=== PATIENT | female | born 1945 | race Caucasian/White ===

== ENCOUNTER → 2023-01-15 08:58 | Outpatient (CLI) | payer MEDICARE, SELFPAY ==
--- NOTE | 2023-01-15 09:06 | XR_ITS ---
FINAL REPORT CLINICAL HISTORY: Right foot pain COMPARISON: None FINDINGS: RIGHT FOOT 3 views of the right foot were obtained. There is no acute fracture or dislocation. 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 There is moderate hallux valgus deformity. There is moderate narrowing of the 1st metatarsophalangeal joint. No soft tissue abnormality. IMPRESSION: Degenerative change with no acute bony abnormality. Reviewed, Interpreted and Dictated by Moustapha Freeman MD Transcribed by Glory Sullivan Authenticated and [facility]
--- NOTE | 2023-01-15 09:06 | XR_ITS ---
FINAL REPORT CLINICAL HISTORY: Left foot pain COMPARISON: None FINDINGS: LEFT FOOT Three views of the left foot demonstrate no acute fracture or dislocation. 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 There is moderate hallux valgus deformity. There is moderate narrowing of the 1st metatarsophalangeal joint. The soft tissues are unremarkable. IMPRESSION: Degenerative changes with no acute bony abnormality. Reviewed, Interpreted and Dictated by Moustapha Freeman MD Transcribed by Glory Sullivan Authenticated and [facility]
== END ==
PROVIDERS: Visit Provider Podiatrist
DX: M79.671 Pain in right foot (principal); M79.672 Pain in left foot
CPT/HCPCS: 73630

== ENCOUNTER 2024-07-02 12:07 | Emergency (ER) | payer MEDICARE, SELFPAY ==
--- NOTE | 2024-07-02 12:35 | ED_ITS ---
Discharge Plan Disposition Patient Disposition: Home, Self-Care Condition: Good Prescriptions Prescriptions: New benzonatate 100 mg capsule 100 mg PO TIDP PRN (Reason: Cough) Qty: 30 0RF methylprednisolone 4 mg Tablets,Dose Pack 4 mg PO DIRECTED 6 Days Qty: 21 0RF Rx Instructions: Take 1 pack as directed for 6 days cefdinir 300 mg capsule 300 mg PO BID Qty: 20 0RF No Action lisinopril 20 mg tablet 20 mg PO DAILY methylprednisolone 4 mg tablets,dose pack 4 mg PO PER PKG DIR Qty: 21 0RF diclofenac sodium [Voltaren Arthritis Pain] 1 % gel 4 g topical QID PRN (Reason: pain) Qty: 100 2RF Rx Instructions: apply to single knee, ankle, foot; for foot includes sole/toes/top of foot meloxicam 7.5 mg tablet 7.5 mg PO ONCE Qty: 30 2RF Referrals Follow up/Referrals: Provider,Referral, MD [Primary Care Provider] - See instructions Activity Restrictions/Add. Instructions Additional Instructions/Restrictions: Drink plenty of fluids. Take tylenol or ibuprofen for pain or fever. Take the medications as directed. Follow up with your regular doctor. GO TO THE ER FOR ANY WORSENING SYMPTOMS Clinical Impressions Clinical Impression: Sinusitis, Bronchitis Instructions Patient Instructions: Sinusitis, DI for Sinusitis Print Language Print Language: Croatian Discharge ED Provider: Chaz Peterson [facility] General Stated complaint: head congestion Time Seen by Provider: 07/02/24 12:34 Related Data Home Medications ?Medication ?Instructions ?Recorded ?Confirmed lisinopril 20 mg tablet 20 mg PO DAILY 01/15/23 01/15/23 Previous Rx's ?Medication ?Instructions ?Recorded diclofenac sodium 1 % topical gel 4 g topical QID PRN pain #100 grams 01/15/23 (Voltaren Arthritis Pain) meloxicam 7.5 mg tablet 7.5 mg PO ONCE pain #30 tabs 01/15/23 methylprednisolone 4 mg tablets in 4 mg PO PER PKG DIR Pain, swelling 01/15/23 a dose pack #21 tabs benzonatate 100 mg capsule 100 mg PO TIDP PRN Cough #30 caps 07/02/24 cefdinir 300 mg capsule 300 mg PO BID #20 caps 07/02/24 methylprednisolone 4 mg tablets in 4 mg PO DIRECTED 6 days #21 tabs 07/02/24 a dose pack Allergies Allergy/AdvReac Type Severity Reaction Status Date / Time acetaminophen [From Tylox] Allergy Verified 01/15/23 09:51 clindamycin Allergy Verified 01/15/23 09:51 doxycycline Allergy Verified 01/15/23 09:51 erythromycin base Allergy Verified 01/15/23 09:51 metronidazole [From Flagyl] Allergy Verified 01/15/23 09:51 oxycodone [From Tylox] Allergy Verified 01/15/23 09:51 Penicillins Allergy Verified 01/15/23 09:51 Sulfa (Sulfonamide Allergy Verified 01/15/23 09:51 Antibiotics) keflex Allergy Mild Diarrhea Uncoded 01/15/23 10:02 [facility] Disclaimer: The information contained in this section may have been updated after the patient was seen, as this information can be updated by other users. Medical History (Updated 07/02/24 @ 13:13 by Chaz Peterson APRN) Mitral valve prolapse Hiatal hernia Hypertension Diverticulitis Foot pain, bilateral Surgical History (Updated 01/15/23 @ 10:04 by Laly Boyd CMA) No history of previous surgery Family History (Updated 01/15/23 @ 10:04 by Laly Boyd CMA) Other Family history non-contributory Social History (Updated 01/15/23 @ 10:05 by Laly Boyd CMA) Smoking Status: Never smoker alcohol intake: never substance use type: denies use current occupational status: other Travel in the last 8 weeks: None housing: condominium ROS Obtained: Yes All systems reviewed & no additional complaints except as documented Constitutional Constitutional: Reports poor appetite Eyes Eyes: Reports system reviewed and no additional complaints, except as documented ENT Ears, Nose, Mouth, and Throat: Reports as per HPI Cardiovascular Cardiovascular: Reports system reviewed and no additional complaints, except as documented and Denies chest pain Respiratory Respiratory: Denies shortness of breath, Reports chest congestion, Reports cough, Denies stridor and Denies wheezing Gastrointestinal Gastrointestingal: Reports system reviewed and no additional complaints, except as documented; Denies abdominal pain, diarrhea or vomiting Musculoskeletal Musculoskeletal: Reports system reviewed and no additional complaints, except as documented and Denies arthralgias Integumentary/Breasts Skin/Breast: Reports system reviewed and no additional complaints, except as documented and Denies rash Neurologic Neurologic: Denies paresthesias Allergic/Immunologic Allergic/Immunologic: Denies wheezing Physical Exam General General appearance: alert and in no apparent distress Eye Eye exam: Present normal appearance, PERRL and EOMI ENT ENT exam: Present mucous membranes moist and normal external ear exam Expanded ENT Exam External ear exam: Present normal external inspection TM/Canal exam: Bilateral TM: erythema and bulging Nose exam: Absent sinus tenderness Nasal speculum exam: Bilateral: normal Mouth exam: Present normal external inspection; Absent drooling Teeth exam: Present normal inspection Throat exam: Present tonsillar erythema and tonsillomegaly Neck Neck exam: Present normal inspection, full ROM and trachea midline; Absent tenderness, lymphadenopathy or thyromegaly Chest Chest inspection: Present normal inspection and symmetric chest wall rise; Absent tenderness or rash Respiratory Respiratory exam: Present normal lung sounds bilaterally; Absent respiratory distress, wheezes, stridor or accessory muscle use Cardiovascular Cardiovascular exam: Present regular rate, normal rhythm and normal heart sounds Abdominal Exam Abdominal exam: Present soft; Absent distention, tenderness, guarding, rebound or rigidity Extremities Exam Extremities exam: Present normal inspection, full ROM and normal capillary refill; Absent tenderness or calf tenderness Back Exam Back exam: Present normal inspection and full ROM; Absent tenderness Neurological Exam Neurological exam: Present alert and oriented X3 Psychiatric Psychiatric exam: Present normal affect and normal mood Skin Skin exam: Present warm, dry, intact and normal color Lymphatic Lymphatic Findings: no adenopathy Medical Decision Making Medical Records Medical records reviewed: No I reviewed the patient's medical records. Screening: Per USPSTF and CDC recommendations, given the prevalence of disease in our region, it is our hospital?s policy to screen for HIV and viral Hepatitis for all patients aged 18 and over and those with ongoing risk factors. [place] Inquiry Pt receiving controlled substance: No Lab Data Lab results reviewed: Yes I reviewed the patient's lab results.
[2024-07-02 12:47] VITALS: BP 158/80; PULSE 88; RESP 16; TEMP 36.9; O2SAT 98; BMI 31.1
[2024-07-02 12:55] LABS: UTC Strep Screen (Rapid) Negative (Negative)
[2024-07-02 13:28] VITALS: BP 158/80; PULSE 88; RESP 16; TEMP 36.9; O2SAT 98
== END 2024-07-02 13:29 | disposition home or self-care (01) ==
PROVIDERS: Emergency Provider Nurse Practitioner Family
DX: J40 Bronchitis, not specified as acute or chronic (principal); J01.90 Acute sinusitis, unspecified; I10 Essential (primary) hypertension; I34.1 Nonrheumatic mitral (valve) prolapse
CPT/HCPCS: 87880; 99204; 99212; G0463

== ENCOUNTER 2024-09-20 16:19 | Outpatient (CLI) | payer MEDICARE, SELFPAY ==
[2024-09-20 18:32] LABS: Influenza A, PCR Not Detected (NotDetected); Influenza B, PCR Not Detected (NotDetected)
[2024-09-20 19:36] LABS: Coronavirus 19, PCR Detected (NotDetected)
== END 2024-09-20 23:59 | disposition home or self-care (01) ==
LOC: LAB.DROPOF 09-21 11:14
PROVIDERS: PCP Student in an Organized Health Care Education/Training Program; Visit Provider Student in an Organized Health Care Education/Training Program
DX: R50.9 Fever, unspecified (principal)
CPT/HCPCS: 87636

== ENCOUNTER 2024-09-22 17:53 | Emergency (ER) | payer MEDICARE, SELFPAY ==
[2024-09-22 17:54] VITALS: BP 158/95; PULSE 90; RESP 18; TEMP 36.9; O2SAT 98; BMI 31.1
--- NOTE | 2024-09-22 17:56 | HMH.EDGENADL ---
Discharge Plan Disposition Patient Disposition: Home, Self-Care Condition: Fair Prescriptions Prescriptions: New [id number]-[id number]-AH [Bromfed DM] 2-30-10 mg/5 mL syrup 5 ml PO Q4H PRN (Reason: sinus symptoms) Qty: 118 0RF No Action benzonatate 100 mg capsule 100 mg PO TIDP PRN (Reason: Cough) Qty: 30 0RF methylprednisolone 4 mg tablets,dose pack See Rx Instructions PO PER PKG DIR Qty: 21 0RF Rx Instructions: PO PER PKG DIR cephalexin 500 mg tablet 500 mg PO BID Qty: 20 0RF Paxlovid 300 mg (150 mg x 2)-100 mg tablets,dose pack See Rx Instructions PO .COMPLEX Qty: 30 0RF Rx Instructions: take TWO 150 mg tablets of nirmatrelvir with ONE 100 mg tablet of ritonavir twice daily for 5 days PO lisinopril 20 mg tablet 20 mg PO DAILY diclofenac sodium [Voltaren Arthritis Pain] 1 % gel 4 g topical QID PRN (Reason: pain) Qty: 100 2RF Rx Instructions: apply to single knee, ankle, foot; for foot includes sole/toes/top of foot meloxicam 7.5 mg tablet 7.5 mg PO ONCE Qty: 30 2RF Referrals Follow up/Referrals: Provider,Referral, MD [Primary Care Provider] - See instructions Activity Restrictions/Add. Instructions Additional Instructions/Restrictions: Continue treating symptomatically with Tylenol Motrin every 4 hours as needed. I have sent Bromfed into your pharmacy. Follow-up with your PCP for any new persisting or worsening signs or symptoms or return to the ER as needed Clinical Impressions Clinical Impression: COVID-19 Print Language Print Language: Persian Discharge ED Provider: Jennifer Farias General Adult HPI General Chief complaint: Upper Respiratory Infection Stated complaint: Poss for Covid Time Seen by Provider: 09/22/24 17:56 History of Present Illness HPI narrative: Patient presents for evaluation of congestion and subjective shortness of breath. Patient was recently diagnosed with COVID on Thursday. She was seen at a local [facility] and prescribed steroids however patient noted that she was wheezing yesterday presented to the ER for evaluation today. Patient denies chest pain fever chills hemoptysis hematochezia melena nausea vomit diarrhea. She reports that she has a cough and feels like that she has deep congestion but cannot get it up . Related Data Home Medications ?Medication ?Instructions ?Recorded ?Confirmed lisinopril 20 mg tablet 20 mg PO DAILY 01/15/23 09/20/24 Previous Rx's ?Medication ?Instructions ?Recorded diclofenac sodium 1 % topical gel 4 g topical QID PRN pain #100 grams 01/15/23 (Voltaren Arthritis Pain) meloxicam 7.5 mg tablet 7.5 mg PO ONCE pain #30 tabs 01/15/23 benzonatate 100 mg capsule 100 mg PO TIDP PRN Cough #30 caps 09/20/24 cephalexin 500 mg tablet 500 mg PO BID #20 tabs 09/20/24 methylprednisolone 4 mg tablets in See Rx Instructions PO PER PKG DIR 09/20/24 a dose pack #21 tabs nirmatrelvir 300 mg (150 mg See Rx Instructions PO .COMPLEX 09/21/24 x2)-ritonavir 100 mg tablet,dose #30 tabs pack (Paxlovid) [id number]-[id number]-[id number] 5 ml PO Q4H PRN sinus symptoms 09/22/24 2 mg-30 mg-10 mg/5 mL oral syrup #118 mL (Bromfed DM) Allergies Allergy/AdvReac Type Severity Reaction Status Date / Time acetaminophen (From Tylox) Allergy Verified 09/20/24 16:13 clindamycin Allergy Verified 09/20/24 16:13 doxycycline Allergy Verified 09/20/24 16:13 erythromycin base Allergy Verified 09/20/24 16:13 metronidazole (From Flagyl) Allergy Verified 09/20/24 16:13 oxycodone (From Tylox) Allergy Verified 09/20/24 16:13 Penicillins Allergy Verified 09/20/24 16:13 Sulfa (Sulfonamide Allergy Verified 09/20/24 16:13 Antibiotics) keflex Allergy Mild Diarrhea Uncoded 01/15/23 10:[address] [facility] Disclaimer: The information contained in this section may have been updated after the patient was seen, as this information can be updated by other users. Medical History Mitral valve prolapse Hiatal hernia Hypertension Diverticulitis Foot pain, bilateral Surgical History No history of previous surgery Family History Other Family history non-contributory Social History Smoking Status: Never smoker alcohol intake: never substance use type: denies use current occupational status: other Travel in the last 8 weeks: [facility] Have you lived/traveled outside [place] in past 30 days?: No Contact w/someone who lives/traveled outside US past 30 days?: No Exposure to someone with infectious disease in past 14 days?: Yes Do you have a fever (greater than 100.4 F or 38 C)?: No Have you tested positive for COVID-19: Yes Exposed to someone with COVID-19 in past 14 days?: Yes Do you have a sore throat?: No Do you have a cough?: Yes Do you have any weakness?: Yes Do you have any diarrhea?: No Are you experiencing any unusual bleeding?: No Do you have any muscle aches/pain?: No Do you have any abdominal pain?: No Are you experiencing loss of taste or smell?: No Other Medical History Have you received the Pneumonia Vaccine: No ROS Obtained: Yes Systems reviewed as appropriate & no additional complaints except as documented Physical Exam General General appearance: alert and in no apparent distress Respiratory Respiratory exam: Present normal lung sounds bilaterally; Absent respiratory distress, wheezes or accessory muscle use Cardiovascular Cardiovascular exam: Present regular rate Neurological Exam Neurological exam: Present alert and oriented X3 Medical Decision Making Medical Records Medical records reviewed: Yes I reviewed the patient's medical records. Screening: Per USPSTF and CDC recommendations, given the prevalence of disease in our region, it is our hospital?s policy to screen for HIV and viral Hepatitis for all patients aged 18 and over and those with ongoing risk factors. [place]ñito Inquiry Pt receiving controlled substance: No Vital Signs: 09/22/24 17:54 09/22/24 19:12 Temperature 98.4 F 98.2 F Temperature Source Oral Oral Pulse Rate 82 Pulse Rate [Left Radial] 90 Respiratory Rate 18 18 Blood Pressure 128/78 Blood Pressure [Right Arm] 158/95 H Blood Pressure Mean [Right Arm] 116 02 Sat by Pulse Oximetry 98 Oxygen Delivery Method Room Air Room Air Lab Data Lab results reviewed: Yes I reviewed the patient's lab results. Orders (Tests/Meds): ORDERS Category Date Time Status Chest XR 2 view (NOT portable) [XR chest 2V] Stat Exams 09/22/24 18:08 Completed Medical Decision Narrative: In summary patient is a 79-year-old female who presents to the emergency department for evaluation of COVID-positive and upper respiratory tract symptoms. Patient is normotensive initially with a blood pressure 150/95 pulse 90 respiratory rate is 18 O2 sats 98% on room air and afebrile at 98.4 on arrival. Physical exam is remarkable for clear breath sounds to the bases without adventitious sounds, no increased work of breathing or accessory muscle use.. Differential diagnosis includes acute COVID versus COVID-pneumonia versus bacterial superinfection however less likely etc. Initial workup will be conducted with plain film chest x-ray. Initial interventions were considered however patient has no oxygen requirement has no increased work of breathing thus deferred for now. Initial workup reviewed by me and my informal to rotation of her plain film chest x-ray shows no evidence of acute infiltrates or COVID-pneumonia.. Given this patient is appropriate for discharge with instructions for supportive care including Tylenol Motrin plus a prescription for Bromfed to help clear secretions and strict return precautions. Critical Care Critical Care Time Critical Care Time: No
--- NOTE | 2024-09-22 18:08 | XR_ITS ---
PROCEDURE INFORMATION: Exam: XR Chest Exam date and time: 09/22/2024 6:09 PM Age: 79 years old Clinical indication: Other: Positive, congestion and wheezing TECHNIQUE: Imaging protocol: Radiologic exam of the chest. Views: 2 views. COMPARISON: No relevant prior studies available. FINDINGS: Lungs: Possible pulmonary venous congestion. Pleural spaces: Unremarkable. No pleural effusion. No pneumothorax. Heart/Mediastinum: Unremarkable. No cardiomegaly. Vasculature: Vascular calcifications. Tortuous thoracic aorta. Bones/joints: Unremarkable. IMPRESSION: Possible pulmonary venous congestion.
[2024-09-22 19:12] VITALS: BP 128/78; PULSE 82; RESP 18; TEMP 36.8
--- OUTSIDE RECORDS SUMMARY | 2024-09-27 11:11 | XMS_ITS | Encounter Summary ---
Author Organization [facility] Address [address] [place] [address] Care Team Providers Care Trial Mgr Name Role Phone Neha Zhou CENTRAL OFFICE WORKER Primary Care Provider [phone] Reason for Visit * Reason Comments Nasal Congestion Encounter Details Date Type Department Care Team (Late st Contact Info) Description 03/17/2024 1:40 PM EDT Office Visit [facility] [address] [place] [address] Neha Zhou APRN [address] [place] [address] Acute sinusitis, recurrence not specified, unspecified location (Primary Dx); Diverticulitis; Chronic pain of left knee; Chronic pain of right knee; Bilateral shoulder pain, unspecified chronicity; Gastroesophageal reflux disease without esophagitis; Seasonal allergic rhinitis, unspecified trigger; Rheumatoid arthritis with positive rheumatoid factor, involving unspecified site (CMS/HCC); Pharyngitis, unspecified etiology; Primary hypertension; Sjogren's syndrome, with unspecified organ involvement (CMS/HCC) Social History Tobacco Use Types Packs/Day Years Used Date Smoking Tobacco: Never Passive Smoke Exposure: Never Smokeless Tobacco: Never Tobacco Cessation:Counseling Given: No Alcohol Use Standard Drinks/Week Comments No 0 (1 standard drink = 0.6 oz pur e alcohol) Humiliation, Afraid, Rape, and Kick questionnair e Answer Date Recorded Within the last year, have y ou been afraid of your partner or ex-partner? No 03/17/2024 Within the last year, have y ou been humiliated or emotionally abused in other ways by your partner or ex-partner? No Within the last year, have y ou been kicked, hit, slapped, or otherwise physically hurt by your partner or ex-partner? No 03/17/2024 Within the last year, have y ou been raped or forced to have any kind of sexual activity by your partner or ex-partner? No 03/17/2024 AUDIT-C Answer Date Recorded Q1: How often do you have a drink containing alcohol? Never 07/23/2023 Q2: How many drinks containi ng alcohol do you have on a typical day when you are drinking? Patient does not drink Q3: How often do you have si x or more drinks on one occasion? Never 07/23/2023 Overall Financial Resource Strain (CARDIA) Answe r Date Recorded How hard is it for you to pa y for the very basics like food, housing, medical care, and heating? Not very hard 03/17/2024 PHQ-2 Answer Date Recorded Patient Health Questionnaire-2 Score 0 03/17/2024 Hunger Vital Sign Answer Date Recorded Within the past 12 months, y ou worried that your food would run out before you got the money to buy more. Never true 03/17/20 24 Within the past 12 months, t he food you bought just didn't last and you didn't have money to get more. Never true 03/17/2024 PRAPARE - Transportation Answer Date Re corded In the past 12 months, has l ack of transportation kept you from medical appointments or from getting medications? No 03/2024 In the past 12 months, has l ack of transportation kept you from meetings, work, or from getting things needed for daily living? No 03/17/2024 Housing Stability Vital Sign Answer Gilberto e Recorded In the last 12 months, was t here a time when you were not able to pay the mortgage or rent on time? No 03/17/2024 In the last 12 months, how many places have you lived? 1 03/17/2024 In the last 12 months, was t here a time when you did not have a steady place to sleep or slept in a senior living (including now)? No 03/17/2024 PHQ-9 Answer Date Recorded Patient Health Questionnaire-9 Score 0 03/17/2024 Safety and Environment Answer Date Guilherme rded Do you worry that your child may have been physically abused? No 11/11/2023 Do you worry that your child may have been sexua lly abused? No 11/11/2023 Are there any guns kept in o r around your home or where your child spends time? No 11/11/2023 Guns Unloaded or Locked Away Not on file Utilities Answer Date Recorded In the past 12 months has th [employer], gas, oil, or water company threatened to shut off services in your home? No 03/17/2024 PHQ-2A Answer Date Recorded Patient Health Questionnaire-2 Score 4 07/07/2023 Education Answer Date Recorded What is the highest level of school you have completed or the highest degree you have received? 12th grade 06/03/2021 Comments No Sex and Gender Information Value Date Recorded Sex Assigned at Female 06/03/2021 11:08 AM EDT Legal Sex Female 7:34 PM EDT Gender Identity Female 06/03/2021 11:08 AM EDT Sexual Orientation Straight 06/03/2021 11 :08 AM EDT Occupation Industry Job Start Date Job End Date retired Not on file Not on file Not on file documented as of this encounter Last Filed Vital Signs Vital Sign Reading Time Taken Comments Blood Pressure 110/65 03/17/2024 1:56 PM EDT Pulse 85 03/17/2024 1:56 PM EDT Temperature 36.8 ??C (98.3 ??F) 03/17/2024 1:56 PM ED T Respiratory Rate 18 03/17/2024 1:56 PM EDT Oxygen Saturation 94% 03/17/2024 1:56 PM EDT Inhaled Oxygen Concentration - - Weight 78.5 kg (173 lb) 03/17/2024 1:56 PM EDT Height 163.8 cm (5' 4.5 ) 03/17/2024 1:56 PM EDT Body Mass Index 29.24 03/17/2024 1:56 PM EDT documented in this encounter Miscellaneous Notes * Clinician Note - Raquel Lemons LPN - 03/17/2024 1:40 PM EDT The patient received dietary education because they have an above normal BMI. and The patient received exercise education because they have an above normal BMI.Body mass index is 29.24 kg/m??. * Patient Instructions - Neha Zhou APRN - 03/17/2024 1:40 PM EDT reviewed diet exercise activity and nutrition; exercise one half hour day 5 days week; bmi less than 25 Push fluids * Progress Notes - Neha Zhou APRN - 03/17/2024 1:40 PM EDT Subjective Patient ID: Tammy Wood is a 78 y.o. female. Here for check up and sore throat and congestion for past week Has been staying w grandchildren Sinus drainage Allergies Cyndie shoulder pain Arthritis Vaginal yeast No fever No vom No diarrhea No rash Review of Systems Constitutional: Positive for fatigue. HENT: Positive for congestion, postnasal drip, rhinorrhea, sinus pressure and sinus pain. Respiratory: Positive for cough. Genitourinary: Vaginal yeast Musculoskeletal: Positive for arthralgias, joint swelling and myalgias. Neurological: Positive for headaches. All other systems reviewed and are negative. Objective Visit Vitals BP 110/65 Pulse 85 Temp 36.8 ??C (98.3 ??F) Ht 1.638 m (5' 4.5 ) Wt 78.5 kg (173 lb) SpO2 94% BMI 29.24 kg/m?? Physical Exam Vitals reviewed. Constitutional: Appearance: Normal appearance. She is obese. She is ill-appearing. Comments: Hoarse and congested today HENT: Head: Normocephalic. Right Ear: Ear canal and external ear normal. Ears: Comments: Tms cloudy and dull cyndie Nose: Congestion and rhinorrhea present. Comments: Inc pain frontal and max sinus areas Mouth/Throat: Mouth: Mucous membranes are moist. Pharynx: Posterior oropharyngeal erythema present. Eyes: Extraocular Movements: Extraocular movements intact. Conjunctiva/sclera: Conjunctivae normal. Pupils: Pupils are equal, round, and reactive to light. Cardiovascular: Rate and Rhythm: Normal rate and regular rhythm. Pulses: Normal pulses. Heart sounds: Normal heart sounds. Pulmonary: Effort: Pulmonary effort is normal. Breath sounds: Rhonchi and rales present. Abdominal: General: Bowel sounds are normal. Tenderness: There is abdominal tenderness. Musculoskeletal: General: Swelling, tenderness and deformity present. Cervical back: Normal range of motion. Skin: General: Skin is warm and dry. Capillary Refill: Capillary refill takes less than 2 seconds. Neurological: General: No focal deficit present. Mental Status: She is alert and oriented to person, place, and time. Psychiatric: Mood and Affect: Mood normal. Behavior: Behavior normal. Thought Content: Thought content normal. Judgment: Judgment normal. Assessment/Plan Diagnoses and all orders for this visit: Acute sinusitis, recurrence not specified, unspecified location Diverticulitis Chronic pain of left knee Chronic pain of right knee Bilateral shoulder pain, unspecified chronicity Gastroesophageal reflux disease without esophagitis Seasonal allergic rhinitis, unspecified trigger Rheumatoid arthritis with positive rheumatoid factor, involving unspecified site (CMS/HCC) Pharyngitis, unspecified etiology Primary hypertension Sjogren's syndrome, with unspecified organ involvement (CMS/HCC) Other orders - lisinopril 20 MG tablet; Take 1 tablet (20 mg) by mouth 1 (one) time each day. - Calcium Carb-Cholecalciferol 500-10 MG-MCG tablet; Take 1 tablet by mouth 1 (one) time each day. - cephalexin (Keflex) 500 MG capsule; Take 1 capsule (500 mg) by mouth 2 (two) times a day for 7 days. - fluconazole (Diflucan) 150 MG tablet; Take 1 tablet (150 mg) by mouth 1 (one) time each day for 7days. Take one tab now. Repeat in 7 days if symptoms persist. - triamcinolone (Kenalog) 0.1 % cream; Apply to affected area 1-2 times daily as needed. Avoid faceand groin x 7 documented in this encounter Plan of Treatment Not on file documented as of this encounter Visit Diagnoses Diagnosis Acute sinusitis, recurrence not specified, unspecified location- Primary Diverticulitis Diverticulitis of colon (without mention of hemorrhage) Chronic pain of left knee Chronic pain of right knee Bilateral shoulder pain, unspecified chronicity Gastroesophageal reflux disease without esophagitis Esophageal reflux Seasonal allergic rhinitis, unspecified trigger Rheumatoid arthritis with positive rheumatoid factor, involving unspecified site (CMS/HCC) Pharyngitis, unspecified etiology Primary hypertension Unspecified essential hypertension Sjogren's syndrome, with unspecified organ involvement (CMS/[facility]) documented in this encounter Additional Health Concerns Assessment Noted Time PHQ-9 Depression Total Score: 0 03/17/20 24 1:57 PM EDT A fall risk assessment has been complete d for the patient 03/17/2024 1:57 PM EDT A Body Mass Index follow-up plan has been documented for the patient 03/17/2024 2:44 PM EDT documented as of this encounter Care Teams Trial Mgr Relationship Specialty Start Date End Date Neha Zhou APRN [address] [place] [id number] PCP - General 02/22/21 documented as of this encounter
--- OUTSIDE RECORDS SUMMARY | 2024-09-27 11:11 | XMS_ITS | Encounter Summary ---
Author Organization Healthcare Address [address] [place] [address] Care Team Providers Care Cellar Hand Name Role Phone Neha Zhou LUNCHROOM AIDE Primary Care Provider Encounter Details Date Type Department Care Team (Late st Contact Info) Description 10/29/2023 Orders Only [facility] [address] [place] [address] Neha Zhou APRN [address] [place] [address] Social History Tobacco Use Types Packs/Day Years Used Date Smoking Tobacco: Never Passive Smoke Exposure: Never Smokeless Tobacco: Never Alcohol Use Standard Drinks/Week Comments No 0 (1 standard drink = 0.6 oz pur e alcohol) Humiliation, Afraid, Rape, and Kick questionnair e Answer Date Recorded Within the last year, have y ou been afraid of your partner or ex-partner? No 07/23/2023 Within the last year, have y ou been humiliated or emotionally abused in other ways by your partner or ex-partner? No Within the last year, have y ou been kicked, hit, slapped, or otherwise physically hurt by your partner or ex-partner? No 07/23/2023 Within the last year, have y ou been raped or forced to have any kind of sexual activity by your partner or ex-partner? No 07/23/2023 AUDIT-C Answer Date Recorded Q1: How often [...] medical care, and heating? Not very hard 02/20/2023 PHQ-2 Answer Date Recorded Patient Health Questionnaire-2 Score 4 07/07/2023 Hunger Vital Sign Answer Date Recorded Within the past 12 months, y ou worried that your food would run out before you got the money to buy more. Never true 07/23/20 Within the past 12 months, t he food you bought just didn't last and you didn't have money to get more. Never true 07/23/2023 PRAPARE - Transportation Answer Date Re corded In the past 12 months, has l ack of transportation kept you from medical appointments or from getting medications? No 07/12 In the past 12 months, has l ack of transportation kept you from meetings, work, or from getting things needed for daily living? No 07/23/2023 Housing Stability Vital Sign Answer Gilberto e Recorded In the last 12 months, was t here a time when you were not able to pay the mortgage or rent on time? No 07/23/2023 In the last 12 months, how many places have you lived? 1 07/23/2023 In the last 12 months, was t here a time when you did not have a steady place to sleep or slept in a prison (including now)? No 07/23/2023 PHQ-9 Answer Date Recorded Patient Health Questionnaire-9 Score 8 07/07/2023 Utilities Answer Date Recorded In the past 12 months has e [employer], gas, oil, or water [employer] threatened to shut off services in your home? No 07/23/2023 PHQ-2A Answer Date Recorded Patient Health Questionnaire-2 [...] on file documented as of this encounter Plan of Treatment Not on file documented as of this encounter Visit Diagnoses Not on filedocumented in this encounter Additional Health Concerns Assessment Noted Time PHQ-9 Depression Total Score: 8 07/07/20 23 4:23 PM EDT A fall risk assessment has been complete d for the patient 07/23/2023 1:57 PM EDT A Body Mass Index follow-up plan has been documented for the patient 07/23/2023 2:42 PM EDT documented as of this encounter Care Teams Cellar Hand Relationship Specialty Start Date End Date Neha Zhou APRN [address] [place] [id number] PCP - General 02/22/21 documented as of this encounter
--- OUTSIDE RECORDS SUMMARY | 2024-09-27 11:11 | XMS_ITS | Encounter Summary ---
Author Organization Healthcare Address [address] [id number] Care Team Providers Care Landing Scaler Name Role Phone Neha Zhou AMMON Primary Care Provider Encounter Details Date Type Department Care Team (Latest Contact Info) Description 08/03/2024 Travel Social History Tobacco Use Types Packs/Day Years [...] place to sleep or slept in a care home (including now)? No 03/17/2024 PHQ-9 Answer Date [...] In the past 12 months has th e electric, gas, oil, or water company threatened to [...] has been complete d for the patient 08/03/2024 2:12 PM EDT A Body Mass Index follow-up plan has been documented for the patient 08/03/2024 3:41 PM EDT documented as of this encounter Care Teams Landing Scaler Relationship Specialty Start Date End Date Neha Zhou APRN [address] [place] [address] PCP - General 02/22/21 documented as of this encounter
--- OUTSIDE RECORDS SUMMARY | 2024-09-27 11:11 | XMS_ITS | Encounter Summary ---
Author Organization Healthcare Address [address] [id number] Care Team Providers Care Egg Packer Name Role Phone Neha Zhou AMMON Primary Care Provider [phone] Encounter Details Date Type Department Care Team (Latest Contact Info) Description 11/11/2023 Travel Social History Tobacco Use Types Packs/Day Years Used Date Smoking Tobacco: Never Passive Smoke Exposure: Never Smokeless Tobacco: Never Alcohol Use Standard Drinks/Week Comments No 0 (1 standard drink = 0.6 oz pur e alcohol) Humiliation, Afraid, Rape, and Kick questionnair e Answer Date Recorded Within the last year, have y ou been afraid of your partner or ex-partner? No 11/11/2023 Within the last year, have y ou been humiliated or emotionally abused in other ways by your partner or ex-partner? No Within the last year, have y ou been kicked, hit, slapped, or otherwise physically hurt by your partner or ex-partner? No 11/11/2023 Within the last year, have y ou been raped or forced to have any kind of sexual activity by your partner or ex-partner? No 11/11/2023 AUDIT-C Answer Date Recorded Q1: How often [...] food, housing, medical care, and heating? Not hard at all 11/11/2023 PHQ-2 Answer Date Recorded Patient Health Questionnaire-2 Score 2 11/11/2023 Hunger Vital Sign Answer Date Recorded Within the past 12 months, y ou worried that your food would run out before you got the money to buy more. Never true 11/11/19 24 Within the past 12 months, t he food you bought just didn't last and you didn't have money to get more. Never true 11/11/2023 PRAPARE - Transportation Answer Date Re corded In the past 12 months, has l ack of transportation kept you from medical appointments or from getting medications? No 10/14 In the past 12 months, has l ack of transportation kept you from meetings, work, or from getting things needed for daily living? No 11/11/2023 Housing Stability Vital Sign Answer Gilberto e Recorded In the last 12 months, was t here a time when you were not able to pay the mortgage or rent on time? No 11/11/2023 In the last 12 months, how many places have you lived? 1 11/11/2023 In the last 12 months, was t here a time when you did not have a steady place to sleep or slept in a usp (including now)? No 11/11/2023 PHQ-9 Answer Date Recorded Patient Health Questionnaire-9 Score 2 11/11/2023 Safety and Environment Answer Date Guilherme rded [...] shut off services in your home? No 11/11/2023 PHQ-2A Answer Date Recorded Patient Health Questionnaire-2 [...] Assessment Noted Time PHQ-9 Depression Total Score: 2 11/11/19 24 2:52 PM EST A fall risk assessment has been complete d for the patient 11/11/2023 2:52 PM EST A Body Mass Index follow-up plan has been documented for the patient 11/11/2023 3:46 PM EST documented as of this encounter Care Teams Egg Packer Relationship Specialty Start Date End Date Neha Zhou APRN [address] [place] [address] PCP - General 02/22/21 documented as of this encounter
--- OUTSIDE RECORDS SUMMARY | 2024-09-27 11:11 | XMS_ITS | Encounter Summary ---
Author Organization Healthcare Address [address] [place] [address] Care Team Providers Care Turner Off Name Role Phone Neha Zhou TECHNICAL MAINTENANCE SPECIALIST Primary Care Provider [phone] Reason for Visit * Reason Comments Med Refill Encounter Details Date Type Department Care Team (Late st Contact Info) Description 01/18/2024 Refill [facility] [address] [place] [address] Neha Zhou APRN [address] [place] [address] Social History Tobacco Use Types Packs/Day [...] Date Recorded Patient Health Questionnaire-2 Score 2 12/11/2023 Hunger Vital Sign Answer Date Recorded Within [...] place to sleep or slept in a fci (including now)? No 11/11/2023 PHQ-9 Answer Date Recorded Patient Health Questionnaire-9 Score 8 12/11/2023 Safety and Environment Answer Date Guilherme rded [...] Noted Time PHQ-9 Depression Total Score: 8 12/11/19 24 1:47 PM EST A fall risk assessment has been complete d for the patient 12/11/2023 1:47 PM EST A Body Mass Index follow-up plan has been documented for the patient 12/11/2023 3:36 PM EST documented as of this encounter Care Teams Turner Off Relationship Specialty Start Date End Date Neha Zhou APRN [address] [place] [address] PCP - General 02/22/21 documented as of this encounter
--- OUTSIDE RECORDS SUMMARY | 2024-09-27 11:11 | XMS_ITS | Encounter Summary ---
Author Organization [facility] Address [address] [place] [address] Care Team Providers Care Truck Engine Technician Name Role Phone Neha Zhou FITNESS SERVICES MANAGER Primary Care Provider Reason for Visit * Reason Comments Nausea Encounter Details Date Type Department Care Team (Late st Contact Info) Description 11/11/2023 2:40 PM EST Office Visit [facility] [address] [place] [address] Neha hZou APRN [address] [place] [address] Nausea (Primary Dx); Lower abdominal pain; Seasonal allergic rhinitis, unspecified trigger; Sjogren's syndrome, with unspecified organ involvement (CMS/HCC); Gastroesophageal reflux disease without esophagitis; Dry eye syndrome, unspecified laterality; Epigastric pain; Gouty arthritis; Hiatal hernia; Primary hypertension; Rheumatoid arthritis with positive rheumatoid factor, involving unspecified site (CMS/HCC); Acute sinusitis, recurrence not specified, unspecified location; Diverticulitis; Bilateral shoulder pain, unspecified chronicity Social History Tobacco Use Types Packs/Day Years [...] place to sleep or slept in a [place] care facility (including now)? No 11/11/2023 PHQ-9 Answer Date [...] In the past 12 months has th [employer], gas, oil, or water [employer] threatened to shut off services in your [...] Sign Reading Time Taken Comments Blood Pressure 146/87 11/11/2023 2:56 PM EST Pulse 96 11/11/2023 2:50 PM EST Temperature 36.7 ??C (98 ??F) 11/11/2023 2:50 PM EST Respiratory Rate 18 11/11/2023 2:50 PM EST Oxygen Saturation 98% 11/11/2023 2:50 PM EST Inhaled Oxygen Concentration - - Weight 75.3 kg (166 lb) 11/11/2023 2:50 PM EST Height 163.8 cm (5' 4.5 ) 11/11/2023 2:50 PM EST Body Mass Index 28.05 11/11/2023 2:50 PM EST documented in this encounter Miscellaneous Notes * Clinician Note - Raquel Lemons LPN - 11/11/2023 2:40 PM EST The patient received dietary education because they have an above normal BMI. and The patient received exercise education because they have an above normal BMI.Body mass index is 28.05 kg/m??. * Patient Instructions - Neha Zhou APRN - 11/11/2023 2:40 PM EST reviewed diet exercise activity and nutrition; exercise one half hour day 5 days week; bmi less than 25 Avoid foods w seeds Push po fluids Return to clinic if no improvement * Progress Notes - Neha Zhou APRN - 11/11/2023 2:40 PM EST Subjective Patient ID: Tammy Wood is a 78 y.o. female. Here for check up and co nausea Co abd cramping Hx diverticulitis Also sinus drainage and infection Had episode of diverticulitis approx 3 weeks ago--went to er--she was given levaquin challenge in er and sent home w levaquin--says she tolerated this well Sjogrens syndrome Dry eye syndrome Arthritis multiple joints Chronic pain cyndie knees Htn--says was on bp meds but they told her to hold it while in the hospital last fall Says bp readings have been good at home Congested Hiatal hernia Gerd No fever Co nausea No vom No diarrhea No rash Review of Systems Constitutional: Positive for fatigue. HENT: Positive for congestion, postnasal drip and rhinorrhea. Negative for sore throat. Eyes: Dry eye syndrome Respiratory: Positive for cough. Gastrointestinal: Positive for abdominal pain and nausea. Musculoskeletal: Positive for arthralgias, back pain, gait problem, joint swelling and myalgias. Psychiatric/Behavioral: The patient is nervous/anxious. All other systems reviewed and are negative. Objective Visit Vitals BP (!) 146/87 Pulse 96 Temp 36.7 ??C (98 ??F) Ht 1.638 m (5' 4.5 ) Wt 75.3 kg (166 lb) SpO2 98% BMI 28.05 kg/m?? Physical Exam Vitals and nursing note reviewed. Constitutional: Appearance: Normal appearance. She is normal weight. HENT: Head: Normocephalic. Right Ear: Tympanic membrane normal. Left Ear: Tympanic membrane normal. Ears: Comments: Cyndie ear canals Nose: Congestion and rhinorrhea present. Mouth/Throat: Mouth: Mucous membranes are moist. Pharynx: Oropharynx is clear. Eyes: Extraocular Movements: Extraocular movements intact. Pupils: Pupils are equal, round, and reactive to light. Cardiovascular: Rate and Rhythm: Normal rate and regular rhythm. Pulses: Normal pulses. Heart sounds: Normal heart sounds. Pulmonary: Effort: Pulmonary effort is normal. Breath sounds: Normal breath sounds. Abdominal: General: Bowel sounds are normal. Palpations: Abdomen is soft. Tenderness: There is abdominal tenderness. Comments: No distention Slight tenderness on palpation Neg psoas Neg obturator Neg heel jar Musculoskeletal: General: Tenderness and deformity present. Comments: Cyndie shoulder Limps When gets up to ambulate Low back pain w rad Spasms low back Arthritis changes cyndie hands Crepitus and pain cyndie shoulders Dec rom cyndie shoulders--pain on abduction an adduction Cyndie knee swelling and crepitus Pos knee bulge Inc pain varus and valgus maneuvers Skin: General: Skin is warm and dry. Capillary Refill: Capillary refill takes less than 2 seconds. Neurological: General: No focal deficit present. Mental Status: She is alert. Psychiatric: Behavior: Behavior normal. Thought Content: Thought content normal. Judgment: Judgment normal. Comments: Anxiety stress Assessment/Plan Diagnoses and all orders for this visit: Nausea Lower abdominal pain Seasonal allergic rhinitis, unspecified trigger Sjogren's syndrome, with unspecified organ involvement (CMS/HCC) Gastroesophageal reflux disease without esophagitis Dry eye syndrome, unspecified laterality Epigastric pain Gouty arthritis Hiatal hernia Primary hypertension Rheumatoid arthritis with positive rheumatoid factor, involving unspecified site (CMS/HCC) Acute sinusitis, recurrence not specified, unspecified location Diverticulitis Bilateral shoulder pain, unspecified chronicity Other orders - ondansetron (Zofran) 4 MG tablet; Take 1 tablet (4 mg) by mouth every 8 (eight) hours if needed for nausea or vomiting. documented in this encounter Plan of Treatment Not on file documented as of this encounter Visit Diagnoses Diagnosis Nausea- Primary Nausea alone Lower abdominal pain Abdominal pain, other specified site Seasonal allergic rhinitis, unspecified trigger Sjogren's syndrome, with unspecified organ involvement (CMS/HCC) Gastroesophageal reflux disease without esophagitis Esophageal reflux Dry eye syndrome, unspecified laterality Epigastric pain Abdominal pain, epigastric Gouty arthritis Gouty arthropathy, unspecified Hiatal hernia Diaphragmatic hernia without mention of obstruction or gangrene Primary hypertension Unspecified essential hypertension Rheumatoid arthritis with positive rheumatoid factor, involving unspecified site (CMS/HCC) Acute sinusitis, recurrence not specified, unspecified location Diverticulitis Diverticulitis of colon (without mention of hemorrhage) Bilateral shoulder pain, unspecified chronicity documented in this encounter Additional Health Concerns Assessment Noted Time PHQ-9 Depression Total Score: 2 11/11/19 24 2:52 PM EST A fall risk assessment has been complete d for the patient 11/11/2023 2:52 PM EST A Body Mass Index follow-up plan has been documented for the patient 11/11/2023 3:46 PM EST documented as of this encounter Care Teams Truck Engine Technician Relationship Specialty Start Date End Date Neha Zhou APRN [address] [place] [address] PCP - General 02/22/21 documented as of this encounter
--- OUTSIDE RECORDS SUMMARY | 2024-09-27 11:11 | XMS_ITS | Encounter Summary ---
Author Organization Healthcare Address [address] [id number] Care Team Providers Care Wine Steward Name Role Phone Neha Zhuo AMMON Primary Care Provider Encounter Details Date Type Department Care Team (Latest Contact Info) Description 12/11/2023 Travel Social History Tobacco Use Types Packs/Day [...] documented as of this encounter Care Teams Wine Steward Relationship Specialty Start Date End Date Neha Zhou APRN [address] [place] [address] PCP - General 02/22/21 documented as of this encounter
--- OUTSIDE RECORDS SUMMARY | 2024-09-27 11:11 | XMS_ITS | Encounter Summary ---
Author Organization [facility] Address [address] [place] [address] Care Team Providers Care Drawer Fitter Name Role Phone Neha Zhou PULL OVER Primary Care Provider [phone] Reason for Visit * Reason Comments wants ears checked Encounter Details Date Type Department Care Team (Late st Contact Info) Description 07/23/2023 1:40 PM EDT Office Visit [facility] [address] [place] [address] Neha Zhou APRN [address] [place] [address] Chronic right shoulder pain (Primary Dx); Chronic left shoulder pain; Dermatitis of ear canal, bilateral; Acute sinusitis, recurrence not specified, unspecified location; Pharyngitis, unspecified etiology; Seasonal allergic rhinitis, unspecified trigger; Sjogren's syndrome, with unspecified organ involvement (CMS/HCC); Chronic pain of right knee; Chronic pain of left knee; Dry eye syndrome, unspecified laterality; Gouty arthritis; Gastroesophageal reflux disease without esophagitis; Primary hypertension; Hiatal hernia Social History Tobacco Use Types Packs/Day Years [...] money to buy more. Never true 07/23/20 23 Within the past 12 months, t he [...] in a care home (including now)? No 07/23/2023 PHQ-9 Answer Date Recorded Patient Health Questionnaire-9 Score 8 07/07/2023 Utilities Answer Date Recorded In the past 12 months has th e [employer], gas, oil, or water [employer] threatened to shut off services in your [...] Sign Reading Time Taken Comments Blood Pressure 131/75 07/23/2023 2:10 PM EDT Pulse 84 07/23/2023 1:56 PM EDT Temperature 36.7 ??C (98 ??F) 07/23/2023 1:56 PM EDT Respiratory Rate 18 07/23/2023 1:56 PM EDT Oxygen Saturation 98% 07/23/2023 1:56 PM EDT Inhaled Oxygen Concentration - - Weight 75.3 kg (166 lb) 07/23/2023 1:56 PM EDT Height 156.2 cm (5' 1.5 ) 07/23/2023 1:56 PM EDT Body Mass Index 30.86 07/23/2023 1:56 PM EDT documented in this encounter Miscellaneous Notes * Clinician Note - Raquel Lemons LPN - 07/23/2023 1:40 PM EDT The patient received dietary education because they have an above normal BMI. and The patient received exercise education because they have an above normal BMI.Body mass index is 30.86 kg/m??. * Patient Instructions - Neha Zhou APRN - 07/23/2023 1:40 PM EDT reviewed diet exercise activity and nutrition; exercise one half hour day 5 days week; bmi less than 25 Pt has some triamcinolog cream at home--to use his on rash ear canals Sent for xray cyndie shoulders * Progress Notes - Neha Zhou APRN - 07/23/2023 1:40 PM EDT Subjective Patient ID: Tammy Wood is a 78 y.o. female. Here for check up --co bumps in ears Also co congestion and soreness of throat and cyndie ears Also co cyndie shoulder pain--says both so sore and tender--difficulty raising arms Says shoulder pain wakes her up at night Sjogrens syndrome Dry eye syndrome Arthritis multiple joints Chronic pain cyndie knees Htn--says was on bp meds but they told her to hold it while in the hospital Says bp readings have been high at home Congested Hiatal hernia gerd Came in 2 weeks ago w pharyngitis--took keflex Review of Systems Constitutional: Positive for fatigue. HENT: Positive for congestion, postnasal drip and sore throat. Eyes: Dry eye syndrome Respiratory: Positive for cough. Musculoskeletal: Positive for arthralgias, back pain, gait problem, joint swelling and myalgias. Psychiatric/Behavioral: The patient is nervous/anxious. All other systems reviewed and are negative. Objective Visit Vitals BP 131/75 Pulse 84 Temp 36.7 ??C (98 ??F) Ht 1.562 m (5' 1.5 ) Wt 75.3 kg (166 lb) SpO2 98% BMI 30.86 kg/m?? Physical Exam Vitals and nursing note reviewed. Constitutional: Appearance: Normal appearance. She is normal weight. HENT: Head: Normocephalic. Right Ear: Tympanic membrane and external ear normal. Left Ear: Tympanic membrane and external ear normal. Ears: Comments: Cyndie ear canals Small bumps and itching Nose: Congestion present. Mouth/Throat: Mouth: Mucous membranes are moist. Pharynx: Oropharynx is clear. Posterior oropharyngeal erythema present. Eyes: Extraocular Movements: Extraocular movements intact. Conjunctiva/sclera: Conjunctivae normal. Pupils: Pupils are equal, round, and reactive to light. Cardiovascular: Rate and Rhythm: Normal rate and regular rhythm. Pulses: Normal pulses. Heart sounds: Normal heart sounds. Pulmonary: Effort: Pulmonary effort is normal. Breath sounds: Normal breath sounds. Abdominal: General: Bowel sounds are normal. Musculoskeletal: General: Tenderness present. Normal range of motion. Cervical back: Normal range of motion. Comments: Limps when gets up to ambulate Low back pain w rad Spasms low back Arthritis changes cyndie hands Crepitus and pain cyndie shoulders Dec rom cyndie shoulders--pain on abduction or adduction Cyndie knee swelling and crepitus Pos knee bulge Inc pain varus and valgus maneuvers Skin: General: Skin is warm and dry. Capillary Refill: Capillary refill takes less than 2 seconds. Neurological: General: No focal deficit present. Mental Status: She is alert and oriented to person, place, and time. Sensory: Sensory deficit present. Psychiatric: Behavior: Behavior normal. Thought Content: Thought content normal. Judgment: Judgment normal. Comments: Anxiety stress Assessment/Plan Diagnoses and all orders for this visit: Chronic right shoulder pain - XR Shoulder Right 2+ Views; Future Chronic left shoulder pain - XR Shoulder Left 2+ Views; Future Dermatitis of ear canal, bilateral Acute sinusitis, recurrence not specified, unspecified location Pharyngitis, unspecified etiology Seasonal allergic rhinitis, unspecified trigger Sjogren's syndrome, with unspecified organ involvement (CMS/HCC) Chronic pain of right knee Chronic pain of left knee Dry eye syndrome, unspecified laterality Gouty arthritis Gastroesophageal reflux disease without esophagitis Primary hypertension Hiatal hernia Other orders - lisinopril 20 MG tablet; Take 1 tablet (20 mg) by mouth 1 (one) time each day. documented in this encounter Plan of Treatment Not on file documented as of this encounter Visit Diagnoses Diagnosis Chronic right shoulder pain- Primary Pain in joint, shoulder region Chronic left shoulder pain Pain in joint, shoulder region Dermatitis of ear canal, bilateral Acute sinusitis, recurrence not specified, unspecified location Pharyngitis, unspecified etiology Seasonal allergic rhinitis, unspecified trigger Sjogren's syndrome, with unspecified organ involvement (CMS/HCC) Chronic pain of right knee Chronic pain of left knee Dry eye syndrome, unspecified laterality Gouty arthritis Gouty arthropathy, unspecified Gastroesophageal reflux disease without esophagitis Esophageal reflux Primary hypertension Unspecified essential hypertension Hiatal hernia Diaphragmatic hernia without mention of obstruction or gangrene documented in this encounter Additional Health Concerns Assessment Noted Time PHQ-9 Depression Total Score: 8 07/07/20 23 4:23 PM EDT A fall risk assessment has been complete d for the patient 07/23/2023 1:57 PM EDT A Body Mass Index follow-up plan has been documented for the patient 07/23/2023 2:42 PM EDT documented as of this encounter Care Teams Drawer Fitter Relationship Specialty Start Date End Date Neha Zhou APRN [address] [place] [address] PCP - General 02/22/21 documented as of this encounter
--- OUTSIDE RECORDS SUMMARY | 2024-09-27 11:11 | XMS_ITS | Encounter Summary ---
Author Organization Healthcare Address [address] [place] [address] Care Team Providers Care Mine Patrol Name Role Phone Neha Zhou AMMON Primary Care Provider Encounter Details Date Type Department Care Team (Late st Contact Info) Description 07/29/2023 2:00 PM EDT Office Visit [facility] [address] [place] [address] Jw Black, DMD [address] [place] [address] Encounter for dental examination (Primary Dx) Social History Tobacco Use Types Packs/Day Years [...] to sleep or slept in a senior care (including now)? No 07/23/2023 PHQ-9 Answer Date [...] on file documented as of this encounter Miscellaneous Notes * Progress Notes - Jw Black DMD - 07/29/2023 2:00 PM EDT NEW PATIENT Medical History Significant For: Noncontributory Patient presents to clinic for new patient exam. Oral Cancer Screening: WNL Hard and Soft Tissue exam completed: WNL Radiographs Taken and Reviewed: PA 3, PA 14. Patient Reports: Staining on anterior bonding. Generalized recession- recommended ref to [facility]. Bone loss and decay on 2 and 3. Reccommended ext. Clinical Findings: 2 and 3 needs to be extracted before issues arise. HYGIENE COMPLETED: Prophy completed by . [place]: Ext 2 and 3. documented in this encounter Plan of Treatment Not on file documented as of this encounter Procedures Procedure Name Priority Date/Time Associated Diagnosis Comments PROPHYLAXIS - ADULT Routine 07/29/2023 2 :00 PM EDT Encounter for dental examination 14 INTRAORAL - PERIAPICAL EACH ADDITIONAL RADIOGRAPHIC IMAGE Routine 07/29/2023 2:00 PM EDT Encounter for dental examination 3 INTRAORAL - PERIAPICAL FIRST RADIOGRAPHIC IMAGE Routine 07/29/2023 2:00 PM EDT Encounter for dental examination COMPREHENSIVE ORAL EVALUATION - NEW OR ESTABLISHED PATIENT Routine 07/29/2023 2:00 PM EDT Encounter for dental examination documented in this encounter Visit Diagnoses Diagnosis Encounter for dental examination- Primary documented in this encounter Additional Health Concerns Assessment Noted Time PHQ-9 Depression Total Score: 8 07/07/20 23 4:23 PM EDT A fall risk assessment has been complete d for the patient 07/23/2023 1:57 PM EDT A Body Mass Index follow-up plan has been documented for the patient 07/23/2023 2:42 PM EDT documented as of this encounter Care Teams Mine Patrol Relationship Specialty Start Date End Date Neha Zhou APRN [address] [place] [address] PCP - General 02/22/21 documented as of this encounter
--- OUTSIDE RECORDS SUMMARY | 2024-09-27 11:11 | XMS_ITS | Encounter Summary ---
Author Organization Healthcare Address [address] [place] [address] Care Team Providers Care Lozenge Maker Helper Name Role Phone Neha Zhou AMMON Primary Care Provider [phone] Reason for Visit * Reason Comments Vaginal Itching Encounter Details Date Type Department Care Team (Late st Contact Info) Description 12/11/2023 2:00 PM EST Office Visit [facility] [address] [place] [address] Gisselle Moura, DO [address] [place] [address] Vaginal candidiasis (Primary Dx) Social History Tobacco Use Types [...] place to sleep or slept in a [facility] (including now)? No 11/11/2023 PHQ-9 Answer Date [...] th e electric, gas, oil, or water [employer] threatened to shut off services in your [...] Sign Reading Time Taken Comments Blood Pressure 150/81 12/11/2023 1:48 PM EST Pulse 90 12/11/2023 1:41 PM EST Temperature 37 ??C (98.6 ??F) 12/11/2023 1:41 PM EST Respiratory Rate 18 12/11/2023 1:41 PM EST Oxygen Saturation 98% 12/11/2023 1:41 PM EST Inhaled Oxygen Concentration - - Weight 78.5 kg (173 lb) 12/11/2023 1:41 PM EST Height 163.8 cm (5' 4.5 ) 12/11/2023 1:41 PM EST Body Mass Index 29.24 12/11/2023 1:41 PM EST documented in this encounter Miscellaneous Notes * Clinician Note - French Headley LPN - 12/11/2023 2:00 PM EST The patient received dietary education because they have an above normal BMI., The patient receiveda feeding regime because they have an above normal BMI., and The patient received exercise education because they have an above normal BMI. * Progress Notes - Tamara Horton - 12/11/2023 2:00 PM EST Subjective Patient ID: Tammy Wood is a 78 y.o. female. Chief Complaint Patient presents with Vaginal Itching HPI Tammy Wood is a 78 y.o. female presenting in clinic today for vaginal itching. Patient reports she has had vaginal itching for the past few days. She states the itching is very bothersome and worse at night. She has observed the redness around her vaginal area has been persistently getting worse and spreading. Patient was in the ED 1 month ago for diverticulitis. She was prescribed antibiotics and discharged. She states previously she has gotten vaginal yeast infections from various antibiotics. She has also been experiencing some urinary leakage for which she has been using a panty liner daily. She tried over the counter Monistat but it did not provide her relief from the symptoms. Patient denies any vaginal bleeding, hematochezia, any previous abnormal pap smear, or history of HPV/STDs. Patient also denies fevers, chills, and N/V. The following portions of the chart were reviewed this encounter and updated as appropriate: Medical hx, Surgical hx, Smoking hx, Allergies, Meds Review of Systems Constitutional: Negative. HENT: Negative. Eyes: Positive for redness. Respiratory: Negative. Cardiovascular: Negative. Gastrointestinal: Positive for abdominal pain. Endocrine: Negative. Genitourinary: Negative for vaginal bleeding and vaginal discharge. Musculoskeletal: Negative. Skin: Positive for rash (Vaginal). Allergic/Immunologic: Positive for environmental allergies. Neurological: Negative. Hematological: Negative. Psychiatric/Behavioral: Negative. Objective Physical Exam Constitutional: Appearance: Normal appearance. HENT: Head: Normocephalic. Mouth/Throat: Mouth: Mucous membranes are moist. Pharynx: Oropharynx is clear. Eyes: Comments: Bilateral conjunctivae Cardiovascular: Rate and Rhythm: Normal rate and regular rhythm. Pulses: Normal pulses. Heart sounds: Normal heart sounds. Pulmonary: Effort: Pulmonary effort is normal. Breath sounds: Normal breath sounds. Abdominal: General: Abdomen is flat. Bowel sounds are normal. Palpations: Abdomen is soft. Skin: General: Skin is warm and dry. Capillary Refill: Capillary refill takes less than 2 seconds. Findings: Erythema and rash present. Comments: Erythematous vaginal rash with satellite lesions. Erythematous rash under stomach fold and breasts bilaterally. Neurological: General: No focal deficit present. Mental Status: She is alert. Psychiatric: Mood and Affect: Mood normal. Assessment/Plan Diagnoses and all orders for this visit: Vaginal candidiasis - fluconazole (Diflucan) 150 MG tablet; Take 1 tablet (150 mg) by mouth 1 (one) time for 1 dose. Take one tab now. Repeat in 7 days if symptoms persist. - nystatin (Mycostatin) [id number] UNIT/GM powder; Use twice a day as needed for affected areas - Start fluconazole 150mg tablet now; repeat in 1 week if no improvement - Start nystatin powder; apply to affected areas as needed Patient seen and evaluated with medical student. I agree with the above documentation including assessment and plan. Patient to return to clinic if no improvement of her symptoms. Adebayo Moura DO, PGY-3 Cosigned by Mandy Kee DO at 12/16/2023 10:59 AM EST Associated attestation - Mandy Kee DO - 12/16/2023 10:59 AM EST I saw and evaluated the patient. I discussed the case with the medical student and resident/fellow and agree with the findings and plan as documented. I personally participated in the management of the patient. documented in this encounter Plan of Treatment Not on file documented as of this encounter Visit Diagnoses Diagnosis Vaginal candidiasis- Primary Candidiasis of vulva and vagina documented in this encounter Additional Health Concerns Assessment Noted Time PHQ-9 Depression Total Score: 8 12/11/19 24 1:47 PM EST A fall risk assessment has been complete d for the patient 12/11/2023 1:47 PM EST A Body Mass Index follow-up plan has been documented for the patient 12/11/2023 3:36 PM EST documented as of this encounter Care Teams Lozenge Maker Helper Relationship Specialty Start Date End Date Neha Zhou APRN [address] [place] [address] PCP - General 02/22/21 documented as of this encounter
--- OUTSIDE RECORDS SUMMARY | 2024-09-27 11:11 | XMS_ITS | Encounter Summary ---
Author Organization Healthcare Address [address] [id number] Care Team Providers Care Bituminous Distributor Operator Name Role Phone Neha Zhou AMMON Primary Care Provider Encounter Details Date Type Department Care Team (Latest Contact Info) Description 07/23/2023 Travel Social History Tobacco Use Types Packs/Day [...] place to sleep or slept in a penitentiary (including now)? No 07/23/2023 PHQ-9 Answer Date [...] documented as of this encounter Care Teams Bituminous Distributor Operator Relationship Specialty Start Date End Date Neha Zhou APRN [address] [place] [address] PCP - General 02/22/21 documented as of this encounter
--- OUTSIDE RECORDS SUMMARY | 2024-09-27 11:11 | XMS_ITS | Encounter Summary ---
Author Organization [facility] Address [address] [place] [address] Care Team Providers Care Automatic Winder Operator Name Role Phone Neha Zhou AMMON Primary Care Provider Reason for Visit * Reason Comments Headache Nasal Congestion Facial pain Encounter Details Date Type Department Care Team (Late st Contact Info) Description 08/22/2024 10:20 AM EST Office Visit [facility] [address] [place] [phone] Kate Benedict MD [address] [place] [id number] Cough, unspecified type (Primary Dx); Nonintractable headache, unspecified chronicity pattern, unspecified headache type; Acute upper respiratory infection, unspecified; Acute sinusitis, recurrence not specified, unspecified location; Post-nasal drip Social History Tobacco Use Types Packs/Day Years Used Date Smoking Tobacco: Never Passive Smoke Exposure: Never Smokeless Tobacco: Never Alcohol Use Standard Drinks/Week Comments No 0 (1 standard drink = 0.6 oz pur e alcohol) Humiliation, Afraid, Rape, and Kick questionnair e Answer Date Recorded Within the last year, have y ou been afraid of your partner or ex-partner? No 08/22/2024 Within the last year, have y ou been humiliated or emotionally abused in other ways by your partner or ex-partner? No Within the last year, have y ou been kicked, hit, slapped, or otherwise physically hurt by your partner or ex-partner? No 08/22/2024 Within the last year, have y ou been raped or forced to have any kind of sexual activity by your partner or ex-partner? No 08/22/2024 AUDIT-C Answer Date Recorded Q1: How often do you have a drink containing alcohol? Never 08/22/2024 Q2: How many drinks containi ng alcohol do you have on a typical day when you are drinking? Patient does not drink Q3: How often do you have si x or more drinks on one occasion? Never 08/22/2024 Overall Financial Resource Strain (CARDIA) Answe r Date Recorded How hard is it for you to pa y for the very basics like food, housing, medical care, and heating? Not hard at all 08/22/2024 PHQ-2 Answer Date Recorded Patient Health Questionnaire-2 Score 0 08/22/2024 Hunger Vital Sign Answer Date Recorded Within the past 12 months, y ou worried that your food would run out before you got the money to buy more. Never true 08/22/20 24 Within the past 12 months, t he food you bought just didn't last and you didn't have money to get more. Never true 08/22/2024 PRAPARE - Transportation Answer Date Re corded In the past 12 months, has l ack of transportation kept you from medical appointments or from getting medications? No 08/12 In the past 12 months, has l ack of transportation kept you from meetings, work, or from getting things needed for daily living? No 08/22/2024 Housing Stability Vital Sign Answer Gilberto e [...] place to sleep or slept in a fdc (including now)? No 03/17/2024 PHQ-9 Answer Date Recorded Patient Health Questionnaire-9 Score 0 08/22/2024 Housing Stability Vital Sign Answer Gilberto e Recorded In the last 12 months, was t here a time when you were not able to pay the mortgage or rent on time? No 08/22/2024 In the past 12 months, how m any times have you moved where you were living? 1 08/22/2024 At any time in the past 12 m [facility], were you homeless or living in a fdc (including now)? No 08/22/2024 Safety and Environment Answer Date Guilherme rded Do you worry that your child may have been physically abused? No 08/22/2024 Do you worry that your child may have been sexua lly abused? No 08/22/2024 Are there any guns kept in o r around your home or where your child spends time? No 08/22/2024 Guns Unloaded or Locked Away Not on file 08/2024 Utilities Answer Date Recorded In the past 12 months has [employer] electric, gas, oil, or water company threatened to shut off services in your home? No 08/22/2024 PHQ-2A Answer Date Recorded Patient Health Questionnaire-2 [...] Sign Reading Time Taken Comments Blood Pressure 138/87 08/22/2024 10:18 AM EST Pulse 85 08/22/2024 10:18 AM EST Temperature 36.5 ??C (97.7 ??F) 08/22/2024 10:[address] Respiratory Rate 20 08/22/2024 10:18 AM EST Oxygen Saturation 97% 08/22/2024 10:18 AM EST Inhaled Oxygen Concentration - - Weight 78.7 kg (173 lb 8 oz) 08/22/2024 10:18 AM EST Height 163.8 cm (5' 4.5 ) 08/22/2024 10:18 AM ES T Body Mass Index 29.32 08/22/2024 10:18 AM EST documented in this encounter Miscellaneous Notes * Clinician Note - Licha Goode RN - 08/22/2024 10:20 AM EST The patient received dietary education because they have an above normal BMI. and The patient received exercise education because they have an above normal BMI. * Addendum Note - Sun Fletcher MD - 08/22/2024 10:20 AM ESTAddended by: SUN FLETCHER on: 08/30/2024 09:11 PM Modules accepted: Level of Service * Progress Notes - Kate Benedict MD - 08/22/2024 10:20 AM EST Images from the original note were not included. Subjective Tammy Wood Headache Associated symptoms include sinus pressure. Ms. Wood is an established patient following up on ongoing sinus congestion and pressure and anupper respiratory tract infection that the patient has been suffering from for over 2 weeks. Patient was 1st seen in clinic on August 03 by her primary care provider where the patient was given a prescription for Claritin, Flonase, and Keflex. Patient states today at the time of her appointment that she was too scared to start the Claritin and the Flonase and she only completed 6 days of the 7of her antibiotic treatment. Patient denies any fevers, nausea, vomiting, however the patient does state that the Keflex caused her to have diarrhea. Patient states today that she is suffering from a mild headache and complains of pain along her maxillary sinuses and patient also states that she feels nauseous every morning when she wakes up that she attributes to drainage that has settled on herstomach overnight. Patient and I discussed the original treatment regimen that was prescribed to her previously by her primary care provider. Patient is limited on treatment options giving the medications that she is allergic to. Patient took the Keflex for 6 days following her August 03 appointment. Past Medical History: Diagnosis Date Allergic Cellulitis of unspecified part of limb Cellulitis of hand Chest pain, unspecified Intermittent chest pain Disorder of the skin and subcutaneous tissue, unspecified Skin lesion Diverticulitis of intestine, part unspecified, without perforation or abscess without bleeding Diverticulitis Diverticulitis of intestine, part unspecified, without perforation or abscess without bleeding Dvtrcli of intest, part unsp, w/o perf or abscess w/o bleed Encounter for screening for malignant neoplasm of colon Encounter for Hemoccult screening Hypertension Left lower quadrant pain Acute left lower quadrant pain Localized swelling, mass and lump, unspecified upper limb Mass of shoulder region Other injury of unspecified body region, initial encounter Hematoma and contusion Other symptoms and signs involving the musculoskeletal system Complaints of leg weakness Pain in right hip Right hip pain Pain in unspecified hand Pain of hand Personal history of other diseases of the female genital tract History of vaginitis Personal history of other diseases of the respiratory system History of bronchitis Personal history of other diseases of the respiratory system History of pharyngitis Personal history of other diseases of the respiratory system History of sinusitis Personal history of other diseases of the respiratory system History of sore throat Personal history of other specified conditions History of abdominal pain Personal history of other specified conditions History of diarrhea Personal history of other specified conditions History of dysuria Personal history of other specified conditions History of nasal congestion Personal history of pneumonia (recurrent) History of community acquired pneumonia Personal history of urinary (tract) infections History of urinary tract infection Family History Problem Relation Name Age of Onset Other cancer Mother Past Surgical History: Procedure Laterality Date HAND SURGERY N/A Hand Surgery from [facility] OTHER SURGICAL HISTORY N/A Thyroid Surgery Type Of Procedure from [facility] TUBAL LIGATION N/A Tubal Ligation from [facility] Social History Socioeconomic History Marital status: Spouse name: Not on file Number of children: 2 Years of education: 12th Highest education level: 12th grade Occupational History Occupation: retired Tobacco Use Smoking status: Never Passive exposure: Never Smokeless tobacco: Never Vaping Use Vaping status: Never Used Substance and Sexual Activity Alcohol use: No Drug use: Never Comment: Drug use: No drug use Sexual activity: Not on file Other Topics Concern Not on file Social History Narrative Not on file Social Drivers of Health Financial Resource Strain: Low Risk (08/22/2024) Overall Financial Resource Strain (CARDIA) Difficulty of Paying Living Expenses: Not hard at all Food Insecurity: No Food Insecurity (08/22/2024) Hunger Vital Sign Worried About Running Out of Food in the Last Year: Never true Ran Out of Food in the Last Year: Never true Transportation Needs: No Transportation Needs (08/22/2024) PRAPARE - Transportation Lack of Transportation (Medical): No Lack of Transportation (Non-Medical): No Physical Activity: Not on file Stress: Not on file Social Connections: Not on file Intimate Partner Violence: Not At Risk (08/22/2024) Humiliation, Afraid, Rape, and Kick questionnaire Fear of Current or Ex-Partner: No Emotionally Abused: No Physically Abused: No Sexually Abused: No Housing Stability: Low Risk (08/22/2024) Housing Stability Vital Sign Unable to Pay for Housing in the Last Year: No Number of Times Moved in the Last Year: 1 Homeless in the Last Year: No Current Outpatient Medications on File Prior to Visit Medication Sig Dispense Refill calcium carbonate-vitamin D 600-400 MG-UNIT tablet Take 1 tablet twice daily cycloSPORINE (Restasis) 0.05 % ophthalmic emulsion INSTILL 1 DROP IN BOTH EYES EVERY 12 HOURS DAILY. diclofenac (Voltaren) 1 % topical gel fluticasone (Flonase) 50 MCG/ACT nasal spray Administer 1 spray into each nostril 1 (one) time eachday. Shake gently. Before first use, prime pump. After use, clean tip and replace cap. 16 g 0 fluticasone (Flonase) 50 MCG/ACT nasal spray Administer 1 spray into each nostril one time each day. Shake gently. Before first use, prime pump. After use, clean tip and replace cap. 16 g 12 lisinopril 20 MG tablet Take 1 tablet (20 mg) by mouth 1 (one) time each day. 30 tablet 3 loratadine (Claritin) 10 MG tablet Take 1 tablet (10 mg) by mouth 1 (one) time each day. 30 tablet 3 multivitamin with minerals (Centrum) 9-200 mg-mcg tablet split tablet 1 split tablet. nystatin (Mycostatin) 009875 UNIT/GM powder Use twice a day as needed for affected areas 30 g 0 ondansetron (Zofran) 4 MG tablet Take 1 tablet (4 mg) by mouth every 8 (eight) hours if needed for nausea or vomiting. 20 tablet 1 polyethylene glycol (Miralax) 17 GM/SCOOP powder triamcinolone (Kenalog) 0.1 % cream Apply to affected area 1-2 times daily as needed. Avoid face and groin x 7 80 g 0 No current facility-administered medications on file prior to visit. Allergies Allergen Reactions Erythromycin Itching, Rash, Other - please document in the comment field and Unknown - Patient states they do not know rxn details Ciprofloxacin Other - please document in the comment field and Unknown - Patient states they do notknow rxn details Clindamycin Unknown - Patient states they do not know rxn details Doxycycline Unknown - Patient states they do not know rxn details Metronidazole Unknown - Patient states they do not know rxn details Nitrofurantoin Unknown - Patient states they do not know rxn details Penicillins Rash, Other - please document in the comment field and Unknown - Patient states they donot know rxn details Percocet [Oxycodone-Acetaminophen] Unknown - Patient states they do not know rxn details Sulfacetamide Unknown - Patient states they do not know rxn details Sulfisoxazole Unknown - Patient states they do not know rxn details Tetracycline Other - please document in the comment field and Unknown - Patient states they do not know rxn details Health Maintenance Due Topic Date Due Dental X-Ray: Bitewings Never done Dental X-Ray: Full Mouth Never done [facility]-Medicare Annual Wellness (AWV) Never done [facility]-Bone Density Scan Never done [facility]-Zoster Vaccines (1 of 2) Never done [facility]-DTaP,Tdap,and Td Vaccines (1 - Tdap) 10/04/2002 [facility]-RSV Vaccine: 60+ Years or (1 - 1-dose 75+ series) Never done [facility]-Pneumococcal Vaccine: 65+ Years (2 of 2 - PCV) 08/29/2021 Dental Oral Exam 01/29/2024 Dental Prophylaxis 01/29/2024 [facility]-Influenza Vaccine (1) 06/12/2024 [id number] Vaccine (4 - 2023-25 season) 2024 All medications have been reviewed today. The following portions of the patient's chart were reviewed in this encounter and updated as appropriate: past medical history, surgical history, family history, tobacco history, allergies, and medications Review of Systems Constitutional: Negative. HENT: Positive for congestion, postnasal drip, sinus pressure and sinus pain. Eyes: Negative. Respiratory: Negative. Cardiovascular: Negative. Gastrointestinal: Negative. Endocrine: Negative. Genitourinary: Negative. Musculoskeletal: Negative. Skin: Negative. Allergic/Immunologic: Positive for environmental allergies. Neurological: Positive for headaches. Hematological: Negative. Psychiatric/Behavioral: Negative. Objective Vitals: 08/22/24 1018 BP: 138/87 Pulse: 85 Resp: 20 Temp: 36.5 ??C (97.7 ??F) SpO2: 97% Physical Exam Constitutional: Appearance: Normal appearance. She is normal weight. HENT: Head: Atraumatic. Right Ear: Tympanic membrane, ear canal and external ear normal. Left Ear: Tympanic membrane, ear canal and external ear normal. Nose: Nose normal. Mouth/Throat: Mouth: Mucous membranes are moist. Pharynx: Oropharynx is clear. Posterior oropharyngeal erythema present. Eyes: Extraocular Movements: Extraocular movements intact. Conjunctiva/sclera: Conjunctivae normal. Cardiovascular: Rate and Rhythm: Normal rate and regular rhythm. Pulses: Normal pulses. Heart sounds: Normal heart sounds. Pulmonary: Effort: Pulmonary effort is normal. Breath sounds: Normal breath sounds. No wheezing, rhonchi or rales. Chest: Chest wall: No tenderness. Abdominal: Palpations: Abdomen is soft. Musculoskeletal: General: Normal range of motion. Cervical back: Normal range of motion and neck supple. No tenderness. Skin: General: Skin is warm and dry. Capillary Refill: Capillary refill takes less than 2 seconds. Findings: Lesion present. Neurological: General: No focal deficit present. Mental Status: She is oriented to person, place, and time. Mental status is at baseline. Psychiatric: Mood and Affect: Mood normal. Behavior: Behavior normal. Judgment: Judgment normal. Assessment/Plan Problem List Items Addressed This Visit Acute upper respiratory infection, unspecified Relevant Medications cephalexin (Keflex) 500 MG capsule Other Relevant Orders POCT SARS-CoV-2 COVID-19 Influenza A,B (Completed) Acute sinusitis, unspecified Relevant Medications pseudoephedrine (Sudafed) 30 MG tablet cephalexin (Keflex) 500 MG capsule Other Visit Diagnoses Cough, unspecified type - Primary Relevant Orders POCT SARS-CoV-2 COVID-19 Influenza A,B (Completed) Nonintractable headache, unspecified chronicity pattern, unspecified headache type Relevant Orders POCT SARS-CoV-2 COVID-19 Influenza A,B (Completed) Post-nasal drip Relevant Medications montelukast (Singulair) 10 MG tablet Patient was asked to schedule a procedural appointment to have some concerning lesions shaved and/or removed off of the left lateral side of her face. Patient states that the areas itch her constantly and she would like to have them removed. Did patient receive resolution from her sinus symptoms including sinus congestion and pressure following the completed course of her antibiotics? Patient was negative for COVID and flu when tested in clinic this morning. Kate Benedict MD Cosigned by Sun Fletcher MD at 08/30/2024 9:11 PM EST Associated attestation - Sun Fletcher MD - 08/30/2024 9:11 PM EST I saw and evaluated the patient with the resident/fellow. I discussed the case with the resident/fellow and agree with the findings and plan as documented. documented in this encounter Plan of Treatment Not on file documented as of this encounter Procedures Procedure Name Priority Date/Time Associated Diagnosis Comments POCT SARS COV2 COVID 19/INFLUENZA A,B Routine 08/22/2024 10:55 AM EST Nonintractable headache, unspecified chronicity pattern, unspecified headache type Cough, unspecified type Acute upper respiratory infection, unspecified documented in this encounter Results * POCT SARS-CoV-2 COVID-19 Influenza A,B (08/22/2024 10:55 AM EST) POCT Influenza A PCR Not Detected Not Detected POCT Influenza B PCR Not Detected Not Detected POCT COVID 19 PCR Not Detected Not Detected POCT COVID/Flu A,B Kit Lot [id number] POCT COVID/FLU A,B Kit Expiration 12/09/2025 Nasopharyngeal Swab Nasopharyngeal structure / Unknown 08/22/2024 10:55 AM EST Sun Fletcher MD POINT OF CARE TEST ENTER/EDIT ORDERABLES Final Result documented in this encounter Visit Diagnoses Diagnosis Cough, unspecified type- Primary Nonintractable headache, unspecified chronicity pattern, unspecified headache type Acute upper respiratory infection, unspecified Acute sinusitis, recurrence not specified, unspecified location Post-nasal drip Postnasal drip documented in this encounter Additional Health Concerns Infection Onset Date Last Indicated Resolved Time COVID-19 Rule-Out 08/22/2024 08/22/2024 08/22/2024 10:56 AM EST Assessment Noted Time PHQ-9 Depression Total Score: 0 08/22/20 24 10:23 AM EST A fall risk assessment has been complete d for the patient 08/22/2024 10:25 AM EST A Body Mass Index follow-up plan has been documented for the patient 08/22/2024 11:57 AM EST documented as of this encounter Care Teams Automatic Winder Operator Relationship Specialty Start Date End Date Neha Zhou APRN [address] [place] [address] PCP - General 02/22/21 documented as of this encounter
--- OUTSIDE RECORDS SUMMARY | 2024-09-27 11:11 | XMS_ITS | Encounter Summary ---
Author Organization Healthcare Address [address] [id number] Care Team Providers Care Senior Cytogenetic Technologist Name Role Phone Neha Zhou AMMON Primary Care Provider Encounter Details Date Type Department Care Team (Latest Contact Info) Description 03/17/2024 Travel Social History Tobacco Use Types Packs/Day [...] place to sleep or slept in a halfway (including now)? No 03/17/2024 PHQ-9 Answer Date [...] documented as of this encounter Care Teams Senior Cytogenetic Technologist Relationship Specialty Start Date End Date Neha Zhou APRN [address] [place] [address] PCP - General 02/22/21 documented as of this encounter
--- OUTSIDE RECORDS SUMMARY | 2024-09-27 11:11 | XMS_ITS | Encounter Summary ---
Author Organization [facility] Address [address] [place] [address] Care Team Providers Care Clear Coat Sprayer Name Role Phone Neha Zhou WHIPPER BEATER Primary Care Provider Reason for Visit * Reason Comments Facial Pain Encounter Details Date Type Department Care Team (Late st Contact Info) Description 08/03/2024 2:00 PM EDT Office Visit [facility] [address] [place] [phone] eNha Zhou APRN [address] [place] [address] Other fatigue (Primary Dx); Essential (primary) hypertension; Left shoulder pain, unspecified chronicity; Injury of right shoulder, subsequent encounter; Acute sinusitis, recurrence not specified, unspecified location; Diverticulitis; Chronic pain of left knee; Chronic pain of right knee; Bilateral shoulder pain, unspecified chronicity; Gastroesophageal reflux disease without esophagitis; Seasonal allergic rhinitis, unspecified trigger; Primary hypertension; Sjogren's syndrome, with unspecified organ involvement (CMS/HCC) Social History Tobacco Use Types Packs/Day Years Used Date Smoking Tobacco: Never Passive Smoke Exposure: Never Smokeless Tobacco: Never Tobacco Cessation:Counseling Given: Not Answered Alcohol Use Standard Drinks/Week Comments No 0 [...] in a senior care (including now)? No 03/17/2024 PHQ-9 Answer Date [...] Recorded In the past 12 months has [employer], gas, oil, or water [employer] threatened to shut off services in your [...] Sign Reading Time Taken Comments Blood Pressure 134/88 08/03/2024 2:11 PM EDT Pulse 98 08/03/2024 2:11 PM EDT Temperature 36.8 ??C (98.3 ??F) 08/03/2024 2:11 PM ED T Respiratory Rate 18 08/03/2024 2:11 PM EDT Oxygen Saturation 98% 08/03/2024 2:11 PM EDT Inhaled Oxygen Concentration - - Weight 78.5 kg (173 lb) 08/03/2024 2:11 PM EDT Height 163.8 cm (5' 4.5 ) 08/03/2024 2:11 PM EDT Body Mass Index 29.24 08/03/2024 2:11 PM EDT documented in this encounter Miscellaneous Notes * Clinician Note - Raquel Lemons - 08/03/2024 2:00 PM EDT The patient received dietary education because they have an above normal BMI. and The patient received exercise education because they have an above normal BMI.Body mass index is 29.24 kg/m??. * Patient Instructions - Neha Zhou APRN - 08/03/2024 2:00 PM EDT reviewed diet exercise activity and nutrition; exercise one half hour day 5 days week; bmi less than 25 * Progress Notes - Neha Zhou APRN - 08/03/2024 2:00 PM EDT Subjective Patient ID: Tammy Wood is a 79 y.o. female. Here for check up and cough and sore throat Cos sinus pressure and sinus drainage Coughing and congested Has been staying w grandchildren Htn Allergies Da shoulder pain Arthritis No fever No vom No diarrhea No ra Review of Systems Constitutional: Positive for fatigue. HENT: Positive for congestion, postnasal drip, rhinorrhea, sinus pressure and sinus pain. Respiratory: Positive for cough. Musculoskeletal: Positive for arthralgias, joint swelling and myalgias. Neurological: Positive for headaches. All other systems reviewed and are negative. Objective Visit Vitals BP 134/88 Pulse 98 Temp 36.8 ??C (98.3 ??F) Ht 1.638 m (5' 4.5 ) Wt 78.5 kg (173 lb) SpO2 98% BMI 29.24 kg/m?? Physical Exam Vitals and nursing note reviewed. Constitutional: Appearance: Normal appearance. She is normal weight. Comments: Congested and hoarse HENT: Head: Normocephalic. Right Ear: Tympanic membrane, ear canal and external ear normal. Left Ear: Tympanic membrane, ear canal and external ear normal. Nose: Congestion present. Comments: Inc pain frontal and max [...] General: Bowel sounds are normal. Musculoskeletal: General: Swelling, tenderness and deformity present. [...] Diagnoses and all orders for this visit: Other fatigue - CBC and differential - Thyroid Stimulating Hormone, Plasma; Future Essential (primary) hypertension - Comprehensive metabolic panel Left shoulder pain, unspecified chronicity - XR Shoulder Left 2+ Views; Future Injury of right shoulder, subsequent encounter - XR Shoulder Right 2+ Views; Future Acute sinusitis, recurrence not specified, unspecified location Diverticulitis Chronic pain of left knee Chronic pain of right knee Bilateral shoulder pain, unspecified chronicity Gastroesophageal reflux disease without esophagitis Seasonal allergic rhinitis, unspecified trigger Primary hypertension Sjogren's syndrome, with unspecified organ involvement (CMS/HCC) Other orders - cephalexin (Keflex) 500 MG capsule; Take 1 capsule (500 mg) by mouth 2 (two) times a day for 7 days. - loratadine (Claritin) 10 MG tablet; Take 1 tablet (10 mg) by mouth 1 (one) time each day. - lisinopril 20 MG tablet; Take 1 tablet (20 mg) by mouth 1 (one) time each day. - ondansetron (Zofran) 4 MG tablet; Take 1 tablet (4 mg) by mouth every 8 (eight) hours if needed for nausea or vomiting. documented in this encounter Plan of Treatment Not on file documented as of this encounter Procedures Procedure Name Priority Date/Time Associated Diagnosis Comments CBC WITH AUTO DIFFERENTIAL Routine 08/03/2024 3:08 PM EDT Other fatigue TSH Routine 08/03/2024 3:08 PM EDT Other fatigue COMPREHENSIVE METABOLIC PANEL, PLASMA Routine 08/03/2024 3:08 PM EDT Essential (primary) hypertension documented in this encounter Results * Thyroid Stimulating Hormone, Plasma (08/03/2024 3:08 PM EDT) Pathologist [facility] Thyroid Stimulating Hormone, Plasma 1.14 0.40 - 4.20 uIU/mL 08/03/2024 9:31 PM EDT [facility] Blood Venous blood specimen / Unknown Venipuncture / Unknown 08/03/2024 3:08 PM EDT 08/03/2024 3:08 PM EDT us Neha Zhou APRN LAB BLOOD ORDERABLES Final R esult [facility] [address] [place] [address] * CBC and differential (08/03/2024 3:08 PM EDT) Pathologist [facility] WBC Count 6.18 3.70 - 10.30 10*3/uL LAB HEMATOLOGY METHOD 08/03/2024 9:15 PM EDT [facility] RBC Count 4.49 3.90 - 5.20 10*6/uL LAB HEMATOLOGY METHOD 08/03/2024 9:15 PM EDT [facility] HGB 13.3 11.2 - 15.7 g/dL LAB HEMATOLOGY METHOD 08/03/2024 9:15 PM EDT [facility] HCT 42.1 34.0 - 45.0 % LAB HEMATOLOGY METHOD 08/03/2024 9:15 PM EDT [facility] Platelet Count 255 155 - 369 10*3/uL LAB HEMATOLOGY METHOD 08/03/2024 9:15 PM EDT [facility] MCV 94 79 - 98 fL LAB HEMATOLOGY METHOD 08/03/2024 9:15 PM EDT [facility] MCH 29.6 26.0 - 32.0 pg LAB HEMATOLOGY METHOD 08/03/2024 9:15 PM EDT [facility] MCHC 31.6 30.7 - 35.5 g/dL LAB HEMATOLOGY METHOD 08/03/2024 9:15 PM EDT [facility] RDW 13.6 11.5 - 14.5 % LAB HEMATOLOGY METHOD 08/03/2024 9:15 PM EDT [facility] MPV 10.3 8.8 - 12.5 fL LAB HEMATOLOGY METHOD 08/03/2024 9:15 PM EDT [facility] nRBC 0.0 <=0.0 per 100 WBCs LAB HEMATOLOGY METHOD 08/03/2024 9:15 PM EDT [facility] Differential Type Automated LAB HEMATOLOGY METHOD 08/03/2024 9:15 PM EDT [facility] Neutrophils % 60 % LAB HEMATOLOGY METHOD 08/03/2024 9:15 PM EDT [facility] Lymphocytes % 24 % LAB HEMATOLOGY METHOD 08/03/2024 9:15 PM EDT [facility] Monocytes % 13 % LAB HEMATOLOGY METHOD 08/03/2024 9:15 PM EDT [facility] Eosinophils % 1 % LAB HEMATOLOGY METHOD 08/03/2024 9:15 PM EDT [facility] Basophils % 1 % LAB HEMATOLOGY METHOD 08/03/2024 9:15 PM EDT [facility] Immature Granulocytes % 1 % LAB HEMATOLOGY METHOD 08/03/2024 9:15 PM EDT [facility] Neutrophils Absolute 3.86 1.60 - 6.10 10*3/uL LAB HEMATOLOGY METHOD 08/03/2024 9:15 PM EDT [facility] Lymphocytes Absolute 1.45 1.20 - 3.90 10*3/uL LAB HEMATOLOGY METHOD 08/03/2024 9:15 PM EDT [facility] Monocytes Absolute 0.78 0.30 - 0.90 10*3/uL LAB HEMATOLOGY METHOD 08/03/2024 9:15 PM EDT [facility] Eosinophils Absolute 0.03 0.00 - 0.50 10*3/uL LAB HEMATOLOGY METHOD 08/03/2024 9:15 PM EDT [facility] Basophils Absolute 0.03 0.00 - 0.10 10*3/uL LAB HEMATOLOGY METHOD 08/03/2024 9:15 PM EDT [facility] Immature Granulocytes Absolute 0.03 0.00 - 0.06 10*3/uL LAB HEMATOLOGY METHOD 08/03/2024 9:15 PM EDT [facility] Blood Venous blood specimen / Unknown Venipuncture / Unknown 08/03/2024 3:08 PM EDT 08/03/2024 3:08 PM EDT Narrative [facility] - 08/03/2024 9:15 PM EDT Therapeutic decision making should be based on absolute values, rather than percentages. us Neha Mckay Winnie WHIPPER BEATER LAB BLOOD ORDERABLES Final R esult [facility] [address] [place] [address] * (ABNORMAL) Comprehensive metabolic panel (08/03/2024 3:08 PM EDT) Glucose, Plasma 95 74 - 99 mg/dL 08/03/2024 9:31 PM EDT [facility] BUN, Plasma 10 8 - 23 mg/dL 08/03/2024 9:31 PM EDT [facility] Creatinine, Plasma 0.76 0.60 - 1.10 mg/dL 08/03/2024 9:31 PM EDT [facility] BUN/Creatinine Ratio 13 08/03/2024 9:31 PM EDT [facility] Sodium, Plasma 133(L) 136 - 145 mmol/L 08/03/2024 9:31 PM EDT [facility] Potassium, Plasma 4.6 3.6 - 4.9 mmol/L 08/03/2024 9:31 PM EDT [facility] Chloride, Plasma 97 97 - 107 mmol/L 08/03/2024 9:31 PM EDT [facility] CO2, Plasma 25 22 - 29 mmol/L 08/03/2024 9:31 PM EDT [facility] Anion Gap 11 6 - 16 mmol/L 08/03/2024 9:31 PM EDT [facility] Total Calcium, Plasma 9.2 8.9 - 10.2 mg/dL 08/03/2024 9:31 PM EDT [facility] Total Protein 7.0 6.3 - 7.9 g/dL 08/03/2024 9:31 PM EDT [facility] Albumin, Plasma 4.0 3.5 - 5.2 g/dL 08/03/2024 9:31 PM EDT [facility] AST, Plasma 22 10 - 35 U/L 08/03/2024 9:31 PM EDT [facility] ALT, Plasma 12 10 - 35 U/L 08/03/2024 9:31 PM EDT [facility] Alkaline Phosphatase, Plasma 92 46 - 142 U/L 08/03/2024 9:31 PM EDT [facility] Total Bilirubin, Plasma 0.5 0.2 - 1.1 mg/dL 08/03/2024 9:31 PM EDT [facility] eGFRcr 79.8 mL/min/1.7 3m*2 08/03/2024 9:31 PM EDT [facility] Comment:Reported eGFRcr in m L/min/1.73m2 is based the CKD-EPI 2020 equation that does not use a race coefficient. Blood Venous blood specimen / Unknown Venipuncture / Unknown 08/03/2024 3:08 PM EDT 08/03/2024 3:08 PM EDT us Neha Zhou WHIPPER BEATER LAB BLOOD ORDERABLES Final R esult [facility] [address] [place] [address] documented in this encounter Visit Diagnoses Diagnosis Other fatigue- Primary Essential (primary) hypertension Unspecified essential hypertension Left shoulder pain, unspecified chronicity Injury of right shoulder, subsequent encounter Acute sinusitis, recurrence not specified, unspecified location Diverticulitis Diverticulitis of colon (without mention of hemorrhage) Chronic pain of left knee Chronic pain of right knee Bilateral shoulder pain, unspecified chronicity Gastroesophageal reflux disease without esophagitis Esophageal reflux Seasonal allergic rhinitis, unspecified trigger Primary hypertension Unspecified essential hypertension Sjogren's syndrome, with unspecified organ involvement (CMS/HCC) documented in this encounter Additional Health Concerns Assessment Noted Time PHQ-9 Depression Total Score: 0 03/17/20 24 1:57 PM EDT A fall risk assessment has been complete d for the patient 08/03/2024 2:12 PM EDT A Body Mass Index follow-up plan has been documented for the patient 08/03/2024 3:41 PM EDT documented as of this encounter Care Teams Clear Coat Sprayer Relationship Specialty Start Date End Date Neha Zhou APRN [address] [place] [address] PCP - General 02/22/21 documented as of this encounter
--- OUTSIDE RECORDS SUMMARY | 2024-09-27 11:11 | XMS_ITS | Encounter Summary ---
Author Organization Healthcare Address [address] [place] [address] Care Team Providers Care Data Analytics Chief Scientist Name Role Phone Neha Zhou AMMON Primary Care Provider [phone] Encounter Details Date Type Department Care Team (Latest Contact Info) Description 08/22/2024 Travel Social History Tobacco Use Types Packs/Day [...] place to sleep or slept in a [facility] (including now)? No 03/17/2024 PHQ-9 Answer Date [...] any time in the past 12 m [facility], were you homeless or living in a mcc (including now)? No 08/22/2024 Safety and Environment [...] filedocumented in this encounter Additional Health Concerns Infection [...] documented as of this encounter Care Teams Data Analytics Chief Scientist Relationship Specialty Start Date End Date Neha Zhou APRN [address] [place] [address] PCP - General 02/22/21 documented as of this encounter
--- OUTSIDE RECORDS SUMMARY | 2024-09-27 11:11 | XMS_ITS | Encounter Summary ---
Author Organization Healthcare Address [address] [place] [address] Care Team Providers Care Correspondence Transcriber Name Role Phone Neha Zhou AMMON Primary Care Provider Encounter Details Date Type Department Care Team (Latest Contact Info) Description 07/29/2023 Travel Social History Tobacco Use Types Packs/Day [...] slept in a [facility] (including now)? No 07/23/2023 PHQ-9 Answer Date [...] documented as of this encounter Care Teams Correspondence Transcriber Relationship Specialty Start Date End Date Neha Zhou APRN [address] [place] [address] PCP - General 02/22/21 documented as of this encounter
--- OUTSIDE RECORDS SUMMARY | 2024-09-27 11:11 | XMS_ITS | Encounter Summary ---
Author Organization Healthcare Address [address] [place] [address] Care Team Providers Care Rn Peritoneal Dialysis Name Role Phone Neha Zhou AMMON Primary Care Provider Encounter Details Date Type Department Care Team (Late st Contact Info) Description 08/17/2024 Telephone [facility] [address] [place] [id number] Ameena De La Paz Social History Tobacco Use Types Packs/Day Years [...] place to sleep or slept in a assisted (including now)? No 03/17/2024 PHQ-9 Answer Date [...] as of this encounter Miscellaneous Notes * Telephone Encounter - Samantha Medeiros RN - 08/18/2024 3:18 PM EST Reviewed the follow up call summary and ED/[facility] discharge records. Meds reconciled. Lbs/x-rays reviewed by MD before discharged. Pt does not want a follow up appt at this time. Informed how to reach our datastage consultant provider for medical advice when the clinic is closed. * Telephone Encounter - Ameena De La Paz - 08/17/2024 10:07 AM EST Spoke with the patient as a follow up to their ED visit at [facility] on 08/12/2024. She stated thatshe is feeling better.She doesn't need a follow up with Neha yet. She will call us if she does. Labs were done and no new medication was given, See [facility] ED Discharge Summary. Imaging and an ECG was done, See [facility] ED Discharge Summary. [facility] ED Discharge Summary is scanned into [facility] and routed to PCP for review. Informed the patient how to reach our on-call provider for medical advice when the clinicis closed and how to reach the clinic during business hours. documented in this encounter Plan of Treatment [...] documented as of this encounter Care Teams Rn Peritoneal Dialysis Relationship Specialty Start Date End Date Neha Zhou APRN [address] [place] [address] PCP - General 02/22/21 documented as of this encounter
--- OUTSIDE RECORDS SUMMARY | 2024-09-27 11:11 | XMS_ITS | Encounter Summary ---
Author Organization Healthcare Address [address] [place] [address] Care Team Providers Care Waybill Clerk Name Role Phone Neha Zhou SALT WASHER Primary Care Provider [phone] Reason for Visit * Reason Comments Med Refill Encounter Details Date Type Department Care Team (Late st Contact Info) Description 07/13/2024 Refill [facility] [address] [place] [address] Neha Zhou APRN [address] [place] [address] Social History Tobacco Use Types [...] documented as of this encounter Care Teams Waybill Clerk Relationship Specialty Start Date End Date Neha Zhou APRN [address] [place] [address] PCP - General 02/22/21 documented as of this encounter
--- OUTSIDE RECORDS SUMMARY | 2024-09-27 11:11 | XMS_ITS | Encounter Summary ---
Author Organization Healthcare Address [address] [place] [address] Care Team Providers Care Library Consultant Name Role Phone Neha Zhou TIMBER DEADENER Primary Care Provider Reason for Visit * Reason Comments Med Refill Encounter Details Date Type Department Care Team (Late st Contact Info) Description 03/17/[address] [facility] [address] [place] [address] Neha Zhou APRN [address] [place] [address] Social History Tobacco Use Types [...] slept in a [facility] (including now)? No 03/17/2024 PHQ-9 Answer Date [...] documented as of this encounter Care Teams Library Consultant Relationship Specialty Start Date End Date Neha Zhou APRN [address] [place] [address] PCP - General 02/22/21 documented as of this encounter
--- OUTSIDE RECORDS SUMMARY | 2024-09-27 11:11 | XMS_ITS | Clinical Summary ---
Author Organization [facility] Address [address] [place] [address] Care Team Providers Care Damage Inside Adjuster Name Role Phone Neha Zhou BLAST FURNACE HELPER Primary Care Provider Allergies Active Allergy Reactions Criticality Noted Date Comments Ciprofloxacin Other - please docum ent in the comment field,Unknown - Patient states they do not know rxn details Low 10/14/2007 Clindamycin Unknown - Patient st ates they do not know rxn details Low 07/05/2015 Doxycycline Unknown - Patient st ates they do not know rxn details Low 07/05/2015 Erythromycin Itching,Rash,Other - please document in the comment field,Unknown - Patient states they do not know rxn details Medium 10/14/2007 Metronidazole Unknown - Patient st ates they do not know rxn details Low 01/19/2019 Nitrofurantoin Unknown - Patient st ates they do not know rxn details Low 10/14/2007 Penicillins Rash,Other - please document in the comment field,Unknown - Patient states they do not know rxn details Low 10/14/2007 Oxycodone-Acetaminophen Unknown - Patien t states they do not know rxn details Low 07/05/2015 Sulfacetamide Unknown - Patient st ates they do not know rxn details Low 10/14/2007 Sulfisoxazole Unknown - Patient st ates they do not know rxn details Low 10/14/2007 Tetracycline Other - please docum ent in the comment field,Unknown - Patient states they do not know rxn details Low 10/14/2007 Medications calcium carbonate-vitami n D 600-400 MG-UNIT tablet Take 1 tablet twice daily 5 Active cycloSPORINE (Restasis) 0.05 % ophthalmic emulsion INSTILL 1 DROP IN BOTH EYES EVERY 12 HOURS DAILY. 04/15/202 1 Active polyethylene glycol (Miralax) 17 GM/SCOOP powder 1 Active fluticasone (Flonase) 50 MCG/ACT nasal sprayIndications :COVID-19 Administer 1 spray into each nostril 1 (one) time each day. Shake gently. Before first use, prime pump. After use, clean tip and replace cap. 16 g 2 Active multivitamin with minerals (Centrum) 9-200 mg-mcg tablet split tablet 1 split tablet. 3 Active diclofenac (Voltaren) 1 % topical gel 3 Active nystatin (Mycostatin) 509598 UNIT/GM powderIndication s:Vaginal candidiasis Use twice a day as needed for affected areas 30 g 4 Active fluticasone (Flonase) 50 MCG/ACT nasal spray Administer 1 spray into each nostril one time each day. Shake gently. Before first use, prime pump. After use, clean tip and replace cap. 16 g 12 4 Active triamcinolone (Kenalog) 0.1 % cream Apply to affected area 1-2 times daily as needed. Avoid face and groin x 7 80 g 4 03/17/20 25 Active loratadine (Claritin) 10 MG tablet Take 1 tablet (10 mg) by mouth 1 (one) time each day. 30 tablet 3 4 11/01/19 25 Active lisinopril 20 MG tablet Take 1 tablet (20 mg) by mouth 1 (one) time each day. 30 tablet 3 4 Active ondansetron (Zofran) 4 MG tablet Take 1 tablet (4 mg) by mouth every 8 (eight) hours if needed for nausea or vomiting. 20 tablet 1 4 Active pseudoephedrine (Sudafed) 30 MG tabletIndication s:Acute sinusitis, recurrence not specified, unspecified location Take 1 tablet (30 mg) by mouth every 4 (four) hours if needed for congestion. 30 tablet 4 Active montelukast (Singulair) 10 MG tabletIndication s:Post-nasal drip Take 1 tablet (10 mg) by mouth every night. 30 tablet 5 4 02/19/20 25 Active cephalexin (Keflex) 500 MG capsuleIndicatio ns:Acute sinusitis, recurrence not specified, unspecified location Take 1 capsule (500 mg) by mouth 2 (two) times a day for 10 days. 20 capsule 4 09/01/20 24 Active Problems Problem Noted Date Diagnosed Date Dermatitis of ear canal, bilateral 07/25/2023 Bilateral shoulder pain 07/25/2023 Acute sinusitis, unspecified 07/25/2023 Acute upper respiratory infection, unspecified 1 Hiatal hernia 12/21/2022 Nausea 12/21/2022 Diverticulitis 12/21/2022 Lower abdominal pain 12/21/2022 Epigastric pain 12/21/2022 Gastroesophageal reflux disease without esophagi tis 08/22/2022 Pharyngitis 07/19/2022 Chronic pain of right knee 05/03/2022 Chronic pain of left knee 05/03/2022 Rheumatoid arthritis 02/28/2022 Seasonal allergic rhinitis 12/25/2021 Gouty arthritis 08/08/2018 Foot pain 05/03/2018 Heel spur, unspecified laterality 05/03/2018 Dry eye syndrome 01/10/2018 Head sensory problem 02/17/2017 Sjogren's disease 07/24/2015 Hypertension Other symptoms and signs inv olving the musculoskeletal system Overview (02/22/2022): Complaints of leg weakness Resolved Problems Problem Noted Date Diagnosed Date Resolved Date Acute frontal sinusitis 03/31/2022 07/1 06/2022 Acute bronchitis, unspecified 02/28/2022 04/29/2022 COVID-19 02/28/2022 04/29/2022 Diarrhea 06/12/2021 04/29/2022 BOM (bilateral otitis media) 04/29/2022 Encounters Date Type Department Care Team Description 08/22/2024 10:20 AM EST Office Visit [facility] [address] [place] [phone] Kate Benedict MD Cough, unspecified type (Primary Dx); Nonintractable headache, unspecified chronicity pattern, unspecified headache type; Acute upper respiratory infection, unspecified; Acute sinusitis, recurrence not specified, unspecified location; Post-nasal drip 08/22/2024 Travel 08/17/2024 Telephone [facility] [address], [place] [phone] Ameena De La Paz 08/03/2024 2:00 PM EDT Office Visit [facility] [address], [place] [phone] Neha Zhou APRN Other fatigue (Primary Dx); Essential (primary) hypertension; Left shoulder pain, unspecified chronicity; Injury of right shoulder, subsequent encounter; Acute sinusitis, recurrence not specified, unspecified location; Diverticulitis; Chronic pain of left knee; Chronic pain of right knee; Bilateral shoulder pain, unspecified chronicity; Gastroesophageal reflux disease without esophagitis; Seasonal allergic rhinitis, unspecified trigger; Primary hypertension; Sjogren's syndrome, with unspecified organ involvement ([facility]) 08/03/2024 Travel 07/13/2024 Refill [facility] [address], [place] [phone] Neha Zhou, BLAST FURNACE HELPER from Last 3 Months Immunizations Name Administration Dates Next Due Influenza, Unspecified 08/05/2010,07/24/2009 Influenza, high-dose, quadrivalent 07/23/2023 Influenza, injectable, quadr ivalent, preservative free 08/07/2021,08/07/2021,08/08/2020 Influenza, seasonal, injectable 08/08/2020 Moderna COVID-19 Vaccine (Re d Cap) 12+ years 09/09/2021,12/05/2020,10/19/2020 Pneumococcal Polysaccharide PPV23 08/29/2020 TD (adult), 2 Lf tetanus tox oid, preservative free, adsorbed 10/03/2002 Family History Medical History Relation Name Comments Other cancer Mother Relation Name Status Comments Mother Social History Tobacco Use Types Packs/Day Years [...] place to sleep or slept in a detention (including now)? No 03/17/2024 PHQ-9 Answer Date [...] any time in the past 12 m [facility], were you homeless or living in a detention (including now)? No 08/22/2024 Safety and Environment [...] In the past 12 months has e electric, gas, oil, or water company [...] file Not on file Not on file Last Filed Vital Signs Vital Sign Reading [...] Mass Index 29.32 08/22/2024 10:18 AM EST Plan of Treatment Health Maintenance Due Date Last Done Comments Dental X-Ray: Bitewings 1945 Dental X-Ray: Full Mouth 1945 [facility]-Bone Density Scan 1945 [facility]-Medicare Annual Wellness (AWV) 1945 [facility]-Zoster Vaccines (1 of 2) 1995 [facility]-DTaP,Tdap,and Td Vaccines (1 - Tdap) 10/04/2002 10/03/2002 [facility]-RSV Vaccine: 60+ Years or (1 - 1-dose 75+ series) 2020 [facility]-Pneumococcal Vaccine: 65+ Years (2 of 2 - PCV) 08/29/2021 08/29/2020 Dental Oral Exam 01/29/2024 07/29/2023 Dental Prophylaxis 01/29/2024 07/29/2023 [id number] Vaccine ( - season) 2024 09/09/2021, 12/05/2020, 10/19/2020 [facility]-Influenza Vaccine (#1) 06/12/202407/23, 08/07/2021, 08/07/2021, Additional history exists [facility]- SDOH Screenings 02/19/2025 [facility]-Adult SDOH Screenings 02/19/2025 08/22/2024 [facility]-/Child/Adol SDOH Screenings 02/19/2025 08/22/2024 [facility]-Depression Screening 08/22/2025 08/22/2024, 08/12 [facility]-Hepatitis C Screening Completed 12/18/2022 [facility]-Obesity Intervention Completed 024, 08/22/2024, 08/22/2024, Additional history exists [facility]-HIB Vaccines Aged Out No longer e ligible based on patient's age to complete this topic [facility]-HPV Vaccines Aged Out No longer e ligible based on patient's age to complete this topic [facility]-Hepatitis A Vaccines Aged Out No longer eligible based on patient's age to complete this topic [facility]-IPV Vaccines Aged Out No longer e ligible based on patient's age to complete this topic [facility]-Rotavirus Vaccines Aged Out No lo nger eligible based on patient's age to complete this topic Procedures Procedure Name Priority Date/Time Associated Diagnosis Comments POCT SARS COV2 COVID 19/INFLUENZA A,B Routine 08/22/2024 10:55 AM EST Nonintractable headache, unspecified chronicity pattern, unspecified headache type Cough, unspecified type Acute upper respiratory infection, unspecified TSH Routine 08/03/2024 3:08 PM EDT Other fatigue CBC WITH AUTO DIFFERENTIAL Routine 08/03/2024 3:08 PM EDT Other fatigue COMPREHENSIVE METABOLIC PANEL, PLASMA Routine 08/03/2024 3:08 PM EDT Essential (primary) hypertension PROPHYLAXIS - ADULT Routine 07/29/2023 2 :00 PM EDT Encounter for dental examination COMPREHENSIVE ORAL EVALUATION - NEW OR ESTABLISHED PATIENT Routine 07/29/2023 2:00 PM EDT Encounter for dental examination HEPATITIS C ANTIBODY W/REFLEX TO HCV QUANT PCR Routine 12/18/2022 2:47 PM EST Need for hepatitis C screening test from Last 3 Months or Most Recently Relevant to Health Maintenance Results * POCT SARS-CoV-2 COVID-19 Influenza A,B (08/22/2024 10:55 AM EST) POCT Influenza A PCR Not Detected Not Detected POCT Influenza B PCR Not Detected Not Detected POCT COVID 19 PCR Not Detected Not Detected POCT COVID/Flu A,B Kit Lot [id number] POCT COVID/FLU A,B Kit Expiration 12/09/2025 Nasopharyngeal Swab Nasopharyngeal structure / Unknown 08/22/2024 10:55 AM EST [address] POINT OF CARE TEST ENTER/EDIT ORDERABLES Final Result * CBC and differential (08/03/2024 3:08 PM EDT) WBC Count 6.18 3.70 - 10.30 10*3/uL LAB HEMATOLOGY METHOD 08/03/2024 9:15 PM EDT [facility] RBC Count 4.49 3.90 - 5.20 10*6/uL LAB HEMATOLOGY METHOD 08/03/2024 9:15 PM EDT [facility] HGB 13.3 11.2 - 15.7 g/dL LAB HEMATOLOGY METHOD 08/03/2024 9:15 PM EDT [facility] HCT 42.1 34.0 - 45.0 % LAB HEMATOLOGY METHOD 08/03/2024 9:15 PM EDT [facility] Platelet Count 255 155 - 369 10*3/uL LAB HEMATOLOGY METHOD 08/03/2024 9:15 PM EDT [facility] MCV 94 79 - 98 fL LAB HEMATOLOGY METHOD 08/03/2024 9:15 PM EDT [facility] MCH 29.6 26.0 - 32.0 pg LAB HEMATOLOGY METHOD 08/03/2024 9:15 PM EDT [facility] MCHC 31.6 30.7 - 35.5 g/dL LAB HEMATOLOGY METHOD 08/03/2024 9:15 PM EDT [facility] RDW 13.6 11.5 - 14.5 % LAB HEMATOLOGY METHOD 08/03/2024 9:15 PM EDT [facility] MPV 10.3 8.8 - 12.5 fL LAB HEMATOLOGY METHOD 08/03/2024 9:15 PM EDT [facility] nRBC 0.0 <=0.0 per 100 WBCs LAB HEMATOLOGY METHOD 08/03/2024 9:15 PM EDT [facility] Differential Type Automated LAB HEMATOLOGY METHOD 08/03/2024 9:15 PM EDT [facility] Neutrophils % 60 % LAB HEMATOLOGY METHOD 08/03/2024 9:15 PM EDT [facility] Lymphocytes % 24 % LAB HEMATOLOGY METHOD 08/03/2024 9:15 PM EDT [facility] Monocytes % 13 % LAB HEMATOLOGY METHOD 08/03/2024 9:15 PM EDT [facility] Eosinophils % 1 % LAB HEMATOLOGY METHOD 08/03/2024 9:15 PM EDT [facility] Basophils % 1 % LAB HEMATOLOGY METHOD 08/03/2024 9:15 PM EDT [facility] Immature Granulocytes % 1 % LAB HEMATOLOGY METHOD 08/03/2024 9:15 PM EDT [facility] Neutrophils Absolute 3.86 1.60 - 6.10 10*3/uL LAB HEMATOLOGY METHOD 08/03/2024 9:15 PM EDT [facility] Lymphocytes Absolute 1.45 1.20 - 3.90 10*3/uL LAB HEMATOLOGY METHOD 08/03/2024 9:15 PM EDT [facility] Monocytes Absolute 0.78 0.30 - 0.90 10*3/uL LAB HEMATOLOGY METHOD 08/03/2024 9:15 PM EDT [facility] Eosinophils Absolute 0.03 0.00 - 0.50 10*3/uL LAB HEMATOLOGY METHOD 08/03/2024 9:15 PM EDT [facility] Basophils Absolute 0.03 0.00 - 0.10 10*3/uL LAB HEMATOLOGY METHOD 08/03/2024 9:15 PM EDT [facility] Immature Granulocytes Absolute 0.03 0.00 - 0.06 10*3/uL LAB HEMATOLOGY METHOD 08/03/2024 9:15 PM EDT [facility] Blood Venous blood specimen / Unknown Venipuncture / Unknown 08/03/2024 3:08 PM EDT 08/03/2024 3:08 PM EDT Narrative [facility] - 08/03/2024 9:15 PM EDT Therapeutic decision making should be based on absolute values, rather than percentages. us Neha Zhou APRN LAB BLOOD ORDERABLES Final R esult [facility] [address] [place] [address] * Thyroid Stimulating Hormone, Plasma (08/03/2024 3:08 PM EDT) Thyroid Stimulating Hormone, Plasma 1.14 0.40 - 4.20 uIU/mL 08/03/2024 9:31 PM EDT [facility] Blood Venous blood specimen / Unknown Venipuncture / Unknown 08/03/2024 3:08 PM EDT 08/03/2024 3:08 PM EDT us Neha Zhou BLAST FURNACE HELPER LAB BLOOD ORDERABLES Final R esult [facility] [address] [place] [address] * (ABNORMAL) Comprehensive metabolic panel (08/03/2024 3:08 PM EDT) Glucose, Plasma 95 74 - 99 mg/dL 08/03/2024 9:31 PM EDT [facility] BUN, Plasma 10 8 - 23 mg/dL 08/03/2024 9:31 PM EDT [facility] Creatinine, Plasma 0.76 0.60 - 1.10 mg/dL 08/03/2024 9:31 PM EDT [facility] BUN/Creatinine Ratio 13 08/03/2024 9:31 PM EDT [facility] Sodium, Plasma 133(L) 136 - 145 mmol/L 08/03/2024 9:31 PM EDT [facility] Potassium, Plasma 4.6 3.6 - 4.9 mmol/L 08/03/2024 9:31 PM EDT [facility] Chloride, Plasma 97 97 - 107 mmol/L 08/03/2024 9:31 PM EDT [facility] CO2, Plasma 25 22 - 29 mmol/L 08/03/2024 9:31 PM EDT [facility] Anion Gap 11 6 - 16 mmol/L 08/03/2024 9:31 PM EDT [facility] Total Calcium, Plasma 9.2 8.9 - 10.2 mg/dL 08/03/2024 9:31 PM EDT [facility] Total Protein 7.0 6.3 - 7.9 g/dL 08/03/2024 9:31 PM EDT [facility] Albumin, Plasma 4.0 3.5 - 5.2 g/dL 08/03/2024 9:31 PM EDT [facility] AST, Plasma 22 10 - 35 U/L 08/03/2024 9:31 PM EDT [facility] ALT, Plasma 12 10 - 35 U/L 08/03/2024 9:31 PM EDT [facility] Alkaline Phosphatase, Plasma 92 46 - 142 U/L 08/03/2024 9:31 PM EDT [facility] Total Bilirubin, Plasma 0.5 0.2 - 1.1 mg/dL 08/03/2024 9:31 PM EDT [facility] eGFRcr 79.8 mL/min/1.7 3m*2 08/03/2024 9:31 PM EDT [facility] Comment:Reported eGFRcr in m L/min/1.73m2 is based the CKD-EPI 2020 equation that does not use a race coefficient. Blood Venous blood specimen / Unknown Venipuncture / Unknown 08/03/2024 3:08 PM EDT 08/03/2024 3:08 PM EDT Neha vArmour BLAST FURNACE HELPER LAB BLOOD ORDERABLES Final R esult [facility] [address] [place] [address] * Hepatitis C Antibody (12/18/2022 2:47 PM EST) Hepatitis C Antibody Negative Negative 12/18/2022 7:58 PM EST [facility] Blood Venous blood specimen / Unknown Venipuncture / Unknown 12/18/2022 2:47 PM EST 12/18/2022 2:47 PM EST Neha vArmour BLAST FURNACE HELPER LAB BLOOD ORDERABLES Final R esult [facility] [address] [place] [address] from Last 3 Months or Most Recently Relevant to Health Maintenance Insurance MEDICARE Care Teams Damage Inside Adjuster Relationship Specialty Start Date End Date Neha Zhou APRN [address] [place] [phone] PCP - General 02/22/21
--- OUTSIDE RECORDS SUMMARY | 2024-09-27 11:12 | XMS_ITS | Encounter Summary ---
Author Organization [facility] Address [address] [id number] Care Team Providers Care Software Support Technician Name Role Phone Neha Zhou AMMON Primary Care Provider Encounter Details Date Type Department Care Team (Latest Contact Info) Description 08/28/2022 Travel Social History Tobacco Use Types Packs/Day Years Used Date Smoking Tobacco: Never Smokeless Tobacco: Never Alcohol Use Standard Drinks/Week Comments No 0 (1 standard drink = 0.6 oz pur e alcohol) Humiliation, Afraid, Rape, and Kick questionnair e Answer Date Recorded Within the last year, have y ou been afraid of your partner or ex-partner? No 04/29/2022 Within the last year, have y ou been humiliated or emotionally abused in other ways by your partner or ex-partner? No Within the last year, have y ou been kicked, hit, slapped, or otherwise physically hurt by your partner or ex-partner? No 04/29/2022 Within the last year, have y ou been raped or forced to have any kind of sexual activity by your partner or ex-partner? No 04/29/2022 AUDIT-C Answer Date Recorded Q1: How often do you have a drink containing alc ohol? Never 06/03/2021 Average Number of Drinks Not on file 021 Q3: How often do you have si x or more drinks on one occasion? Never 06/03/2021 Overall Financial Resource Strain (CARDIA) Answe r Date Recorded How hard is it for you to pa y for the very basics like food, housing, medical care, and heating? Not hard at all 04/29/2022 PHQ-2 Answer Date Recorded Patient Health Questionnaire-2 Score 1 08/28/2022 Hunger Vital Sign Answer Date Recorded Within the past 12 months, y ou worried that your food would run out before you got the money to buy more. Never true 04/29/20 Within the past 12 months, t he food you bought just didn't last and you didn't have money to get more. Never true 04/29/2022 PRAPARE - Transportation Answer Date Re corded In the past 12 months, has l ack of transportation kept you from medical appointments or from getting medications? No 02/09 In the past 12 months, has l ack of transportation kept you from meetings, work, or from getting things needed for daily living? No 02/18/2022 Housing Stability Vital Sign Answer Gilberto e Recorded In the last 12 months, was t here a time when you were not able to pay the mortgage or rent on time? No 04/29/2022 In the last 12 months, how many places have you lived? 1 04/29/2022 In the last 12 months, was t here a time when you did not have a steady place to sleep or slept in a care home (including now)? No 04/29/2022 Education Answer Date Recorded What is the [...] file Not on file Not on file COVID-19 Exposure Response Date Recorded In the last 10 days, have yo u been in contact with someone who was confirmed or suspected to have Coronavirus/COVID-19? No / Unsure 08/28/2022 8:53 AM EST documented as of this encounter Plan of Treatment Not on file documented as of this encounter Visit Diagnoses Not on filedocumented in this encounter Additional Health Concerns Assessment Noted Time PHQ-9 Depression Total Score: 5 08/28/20 9:06 AM EST A fall risk assessment has been complete d for the patient 08/28/2022 9:06 AM EST documented as of this encounter Care Teams Software Support Technician Relationship Specialty Start Date End Date Neha Zhou, MOBILE HOME PARK MANAGER [address] [place] [phone] PCP - General 02/22/21 documented as of this encounter
--- OUTSIDE RECORDS SUMMARY | 2024-09-27 11:12 | XMS_ITS | Encounter Summary ---
Author Organization [facility] Address [address] [id number] Care Team Providers Care Stage Rigger Name Role Phone Neha Zhou AMMON Primary Care Provider [phone] Encounter Details Date Type Department Care Team (Latest Contact Info) Description 08/21/2022 Travel Social History Tobacco Use Types Packs/Day [...] Date Recorded Patient Health Questionnaire-2 Score 0 08/21/2022 Hunger Vital Sign Answer Date Recorded Within [...] place to sleep or slept in a correction (including now)? No 04/29/2022 Education Answer Date [...] suspected to have Coronavirus/COVID-19? No / Unsure 08/21/2022 1:40 PM EST documented as of this encounter Plan of Treatment Not on file documented as of this encounter Visit Diagnoses Not on filedocumented in this encounter Additional Health Concerns Assessment Noted Time PHQ-9 Depression Total Score: 3 08/21/20 1:52 PM EST A fall risk assessment has been complete d for the patient 08/21/2022 1:52 PM EST documented as of this encounter Care Teams Stage Rigger Relationship Specialty Start Date End Date Neha Zhou, SLIP BOX CHANGER [address] [place] [phone] PCP - General 02/22/21 documented as of this encounter
--- OUTSIDE RECORDS SUMMARY | 2024-09-27 11:12 | XMS_ITS | Encounter Summary ---
Author Organization [facility] Address [address] [place] [address] Care Team Providers Care Shuttle Driver Name Role Phone Neha Zhou [employer] ENGLISH TEACHER Primary Care Provider Reason for Visit * Reason Comments strep exposure Encounter Details Date Type Department Care Team (Late st Contact Info) Description 07/07/2023 4:20 PM EDT Office Visit [facility] [address] [place] [address] Neha Zhou APRN [address] [place] [address] Preventive measure (Primary Dx); Pharyngitis, unspecified etiology; Gastroesophageal reflux disease without esophagitis; Primary hypertension; Rheumatoid arthritis with positive rheumatoid factor, involving unspecified site (CMS/HCC); Sjogren's syndrome, with unspecified organ involvement (CMS/HCC); Chronic pain of left knee; Chronic pain of right knee; Hiatal hernia; Dry eye syndrome, unspecified laterality; Acute upper respiratory infection, unspecified; Diverticulitis; Encounter for colorectal cancer screening Social History Tobacco Use Types Packs/Day Years [...] afraid of your partner or ex-partner? No 02/20/2023 Within the last year, have y ou been humiliated or emotionally abused in other ways by your partner or ex-partner? No Within the last year, have y ou been kicked, hit, slapped, or otherwise physically hurt by your partner or ex-partner? No 02/20/2023 Within the last year, have y ou been raped or forced to have any kind of sexual activity by your partner or ex-partner? No 02/20/2023 AUDIT-C Answer Date Recorded Q1: How often do you have a drink containing alcohol? Never 02/20/2023 Q2: How many drinks containi ng alcohol do you have on a typical day when you are drinking? Patient does not drink Q3: How often do you have si x or more drinks on one occasion? Never 02/20/2023 Overall Financial Resource Strain (CARDIA) Answe r [...] the money to buy more. Never true 02/21/20 23 Within the past 12 months, t he food you bought just didn't last and you didn't have money to get more. Never true 02/20/2023 PRAPARE - Transportation Answer Date Re corded In the past 12 months, has l ack of transportation kept you from medical appointments or from getting medications? No 02/09 In the past 12 months, has l ack of transportation kept you from meetings, work, or from getting things needed for daily living? No 02/20/2023 Housing Stability Vital Sign Answer Gilberto e Recorded In the last 12 months, was t here a time when you were not able to pay the mortgage or rent on time? No 02/20/2023 In the last 12 months, how many places have you lived? 1 02/20/2023 In the last 12 months, was t here a time when you did not have a steady place to sleep or slept in a jail (including now)? No 02/20/2023 PHQ-9 Answer Date Recorded Patient Health Questionnaire-9 Score 8 07/07/2023 Utilities Answer Date Recorded In the past 12 months has th e electric, gas, oil, or water [employer] threatened to shut off services in your home? No 07/07/2023 PHQ-2A Answer Date Recorded Patient Health Questionnaire-2 [...] Sign Reading Time Taken Comments Blood Pressure 135/81 07/07/2023 4:22 PM EDT Pulse 88 07/07/2023 4:22 PM EDT Temperature 36.7 ??C (98 ??F) 07/07/2023 4:22 PM EDT Respiratory Rate 20 07/07/2023 4:22 PM EDT Oxygen Saturation 96% 07/07/2023 4:22 PM EDT Inhaled Oxygen Concentration - - Weight 75.3 kg (166 lb) 07/07/2023 4:22 PM EDT Height 156.2 cm (5' 1.5 ) 07/07/2023 4:22 PM EDT Body Mass Index 30.86 07/07/2023 4:22 PM EDT documented in this encounter Miscellaneous Notes * Clinician Note - Raquel Lemons LPN - 07/07/2023 4:20 PM EDT The patient received dietary education because they have an above normal BMI. and The patient received exercise education because they have an above normal BMI.Body mass index is 30.86 kg/m??. * Patient Instructions - Neha Zhou APRN - 07/07/2023 4:20 PM EDT reviewed diet exercise activity and nutrition; exercise one half hour day 5 days week; bmi less than 25 Push po fluids * Addendum Note - Lesa Bingham - 07/07/2023 4:20 PM EDTAddended by: LESA BINGHAM on: 07/13/2023 08:17 AM Modules accepted: Orders * Progress Notes - Neha Zhou APRN - 07/07/2023 4:20 PM EDT Subjective Patient ID: Tammy Wood is a 78 y.o. female. Here for check up Co sore throat for over a week--co headache and sinus ingestion Cough and congestion Granddaughter has strep Dry eye syndomen Sjogrens disease diverticulitis Cyndie knee pain and crepitus Rheumatoid and osterarthritis gerd Fatigue No fever No vom No diarrhea No rash Says was scheduled for colonoscopy for february 2023 but says when took colon prep--she bcame very weak and stomach cramping and --had to go to hosp for overnight stay 2 hyponatremia and acute gi loss--also had to fu in er on 03/10 2 nausea Says had to cancel colonoscopy--wants to do cologard Review of Systems Constitutional: Positive for fatigue. HENT: Positive for congestion, postnasal drip and sore throat. Eyes: Dry eye syndrome Respiratory: Positive for cough. Gastrointestinal: Positive for abdominal pain. Gerd Musculoskeletal: Positive for arthralgias, gait problem, joint swelling and myalgias. Psychiatric/Behavioral: The patient is nervous/anxious. All other systems reviewed and are negative. Objective Visit Vitals BP 135/81 Pulse 88 Temp 36.7 ??C (98 ??F) Ht 1.562 m (5' 1.5 ) Wt 75.3 kg (166 lb) SpO2 96% BMI 30.86 kg/m?? Physical Exam Vitals and nursing note reviewed. Constitutional: Appearance: Normal appearance. She is normal weight. HENT: Head: Normocephalic. Right Ear: Ear canal and external ear normal. Left Ear: Ear canal and external ear normal. Ears: Comments: Dull cloudy cyndie tms Nose: Rhinorrhea present. Mouth/Throat: Mouth: Mucous membranes are moist. Pharynx: Posterior oropharyngeal erythema present. Comments: Red and inflammed Post nasal drainage Eyes: Extraocular Movements: Extraocular movements intact. Conjunctiva/sclera: Conjunctivae normal. Pupils: Pupils are equal, round, and reactive to light. Comments: Dry eye syndrome Cardiovascular: Rate and Rhythm: Normal rate and regular rhythm. Pulses: Normal pulses. Heart sounds: Normal heart sounds. Pulmonary: Effort: Pulmonary effort is normal. Breath sounds: Rales present. Comments: Scattered rhonchi cyndie Abdominal: General: Abdomen is flat. Bowel sounds are normal. Musculoskeletal: General: Tenderness present. Cervical back: Normal range of motion. Comments: Cyndie knee pain Dec rom cyndie knees [employer] pain varus and valgus maneuvers Skin: [...] Diagnoses and all orders for this visit: Preventive measure Pharyngitis, unspecified etiology Gastroesophageal reflux disease without esophagitis Primary hypertension Rheumatoid arthritis with positive rheumatoid factor, involving unspecified site (CMS/HCC) Sjogren's syndrome, with unspecified organ involvement (CMS/HCC) Chronic pain of left knee Chronic pain of right knee Hiatal hernia Dry eye syndrome, unspecified laterality Acute upper respiratory infection, unspecified Diverticulitis documented in this encounter Plan of Treatment Not on file documented as of this encounter Visit Diagnoses Diagnosis Preventive measure- Primary Need for unspecified prophylactic measure Pharyngitis, unspecified etiology Gastroesophageal reflux disease without esophagitis Esophageal reflux Primary hypertension Unspecified essential hypertension Rheumatoid arthritis with positive rheumatoid factor, involving unspecified site (CMS/HCC) Sjogren's syndrome, with unspecified organ involvement (CMS/HCC) Chronic pain of left knee Chronic pain of right knee Hiatal hernia Diaphragmatic hernia without mention of obstruction or gangrene Dry eye syndrome, unspecified laterality Acute upper respiratory infection, unspecified Diverticulitis Diverticulitis of colon (without mention of hemorrhage) Encounter for colorectal cancer screening documented in this encounter Additional Health Concerns Assessment Noted Time PHQ-9 Depression Total Score: 8 07/07/20 4:23 PM EDT A fall risk assessment has been complete d for the patient 07/07/2023 4:24 PM EDT A Body Mass Index follow-up plan has been documented for the patient 07/08/2023 12:28 PM EDT documented as of this encounter Care Teams Shuttle Driver Relationship Specialty Start Date End Date Neha Zhou APRN [address] [place] [address] PCP - General 02/22/21 documented as of this encounter
--- OUTSIDE RECORDS SUMMARY | 2024-09-27 11:12 | XMS_ITS | Encounter Summary ---
Author Organization [facility] Address [address] [id number] Care Team Providers Care Cadence Specialists Name Role Phone Neha Zhou AMMON Primary Care Provider Encounter Details Date Type Department Care Team (Latest Contact Info) Description 12/18/2022 Travel Social History Tobacco Use Types Packs/Day [...] Date Recorded Patient Health Questionnaire-2 Score 0 12/18/2022 Hunger Vital Sign Answer Date Recorded Within [...] place to sleep or slept in a nursing home (including now)? No 04/29/2022 Education Answer [...] suspected to have Coronavirus/COVID-19? No / Unsure 12/18/2022 1:19 PM EST documented as of this encounter Plan of Treatment Not on file documented as of this encounter Visit Diagnoses Not on filedocumented in this encounter Additional Health Concerns Assessment Noted Time PHQ-9 Depression Total Score: 6 12/19/19 2:02 PM EST A fall risk assessment has been complete d for the patient 12/18/2022 2:02 PM EST A Body Mass Index follow-up plan has been documented for the patient 12/18/2022 2:59 PM EST documented as of this encounter Care Teams Cadence Specialists Relationship Specialty Start Date End Date Neha Zhou APRN [address] [place] [address] PCP - General 02/22/21 documented as of this encounter
--- OUTSIDE RECORDS SUMMARY | 2024-09-27 11:12 | XMS_ITS | Encounter Summary ---
Author Organization [facility] Address [address] [place] [address] Care Team Providers Care Social Media Content Specialist Name Role Phone Neha Zhou PEDIATRIC RADIOLOGIST Primary Care Provider Reason for Visit * Reason Comments Sinusitis Encounter Details Date Type Department Care Team (Late st Contact Info) Description 07/16/2022 2:40 PM EDT Office Visit [facility] [address] [place] [address] Neha Zhou APRN [address] [place] [address] Pharyngitis, unspecified etiology (Primary Dx); Other cough; Acute frontal sinusitis, recurrence not specified; Acute bronchitis, unspecified organism; Chronic pain of left knee; Chronic pain of right knee; Dry eye syndrome, unspecified laterality; Pain of foot, unspecified laterality; Gouty arthritis; Primary hypertension Social History Tobacco Use Types Packs/Day Years Used Date Smoking Tobacco: Never Smokeless Tobacco: Never Tobacco Cessation:Counseling Given: [...] Date Recorded Patient Health Questionnaire-2 Score 0 07/16/2022 Hunger Vital Sign Answer Date Recorded Within the past 12 months, y ou worried that your food would run out before you got the money to buy more. Never true 04/29/20 22 Within the past 12 months, t he [...] place to sleep or slept in a intermediate (including now)? No 04/29/2022 Education Answer Date [...] Recorded In the last 10 days, have roxane coombs been in contact with someone who was confirmed or suspected to have Coronavirus/COVID-19? No / Unsure 07/16/2022 2:36 PM EDT documented as of this encounter Last Filed Vital Signs Vital Sign Reading Time Taken Comments Blood Pressure 150/96 07/16/2022 3:12 PM EDT Pulse 82 07/16/2022 3:07 PM EDT Temperature 37.1 ??C (98.7 ??F) 07/16/2022 3:07 PM ED T Respiratory Rate 18 07/16/2022 3:07 PM EDT Oxygen Saturation 95% 07/16/2022 3:07 PM EDT Inhaled Oxygen Concentration - - Weight 76.7 kg (169 lb) 07/16/2022 3:07 PM EDT Height 157.5 cm (5' 2 ) 07/16/2022 3:07 PM EDT Body Mass Index 30.91 07/16/2022 3:07 PM EDT documented in this encounter Miscellaneous Notes * Clinician Note - Raquel Lemons LPN - 07/16/2022 2:40 PM EDT Body mass index is 30.91 kg/m??. The patient received dietary education because they have an above normal BMI., The patient receiveda feeding regime because they have an above normal BMI., and The patient received exercise education because they have an above normal BMI. * Patient Instructions - Neha Zhou APRN - 07/16/2022 2:40 PM EDT reviewed diet exercise activity and nutrition; exercise one half hour day 5 days week; bmi less than 25 * Progress Notes - Neha Zhou APRN - 07/16/2022 2:40 PM EDT Subjective Patient ID: Tammy Wood is a 77 y.o. female. Here for cough and congestion for past week Post nasal drainage Sinus drainage Pharynx --sore throat Allergic rhinitis Planter wart fr foot Htn Gout Arthritis Dry eye syndrome No fever No vom No diarrhea No rash Review of Systems Constitutional: Positive for fatigue. HENT: Positive for congestion, postnasal drip and sore throat. Respiratory: Positive for cough. Musculoskeletal: Positive for arthralgias, back pain, gait problem and joint swelling. Arthritis Joint changes cyndie knee pain Crepitus cyndie knees Skin: Positive for wound. Plantar wart right foot Psychiatric/Behavioral: The patient is nervous/anxious. All other systems reviewed and are negative. Objective Visit Vitals BP (!) 150/96 Pulse 82 Temp 37.1 ??C (98.7 ??F) (Temporal) Ht 1.575 m (5' 2 ) Wt 76.7 kg (169 lb) SpO2 95% BMI 30.91 kg/m?? Physical Exam Vitals and nursing note reviewed. Constitutional: General: She is in acute distress. Appearance: Normal appearance. She is normal weight. Comments: Hoarse Congested Sore throat Cough HENT: Head: Normocephalic. Right Ear: Ear canal and external ear normal. Left Ear: Ear canal and external ear normal. Ears: Comments: Tms bulging w serous fluids cyndie Nose: Congestion present. Mouth/Throat: Mouth: Mucous membranes are moist. Pharynx: Posterior oropharyngeal erythema present. Eyes: Extraocular Movements: Extraocular movements intact. Conjunctiva/sclera: Conjunctivae normal. Pupils: Pupils are equal, round, and reactive to light. Cardiovascular: Rate and Rhythm: Normal rate and regular rhythm. Pulses: Normal pulses. Pulmonary: Effort: Pulmonary effort is normal. Breath sounds: Rhonchi and rales present. Abdominal: General: Abdomen is flat. Bowel sounds are normal. Palpations: Abdomen is soft. Musculoskeletal: General: Swelling and tenderness present. Cervical back: Normal range of motion. Comments: Arthritis changes on cyndie hands Cyndie knee pain Limps Skin: General: Skin is warm and dry. Capillary Refill: Capillary refill takes less than 2 seconds. Neurological: General: No focal deficit present. Mental Status: She is alert and oriented to person, place, and time. Psychiatric: Behavior: Behavior normal. Thought Content: Thought content normal. Judgment: Judgment normal. Comments: Anxiety stress Assessment/Plan Diagnoses and all orders for this visit: Pharyngitis, unspecified etiology - POCT Strep A PCR Other cough - POCT SARS-CoV-2 COVID-19 Influenza A,B Acute frontal sinusitis, recurrence not specified Acute bronchitis, unspecified organism Chronic pain of left knee Chronic pain of right knee Dry eye syndrome, unspecified laterality Pain of foot, unspecified laterality Gouty arthritis Primary hypertension documented in this encounter Plan of Treatment Not on file documented as of this encounter Procedures Procedure Name Priority Date/Time Associated Diagnosis Comments POCT STREP A PCR Routine 07/16/2022 4:23 PM EDT Pharyngitis, unspecified etiology POCT SARS COV2 COVID 19/INFLUENZA A,B Routine 07/16/2022 4:23 PM EDT Other cough documented in this encounter Results * POCT Strep A PCR (07/16/2022 4:23 PM EDT) POCT Strep A PCR Not Detected Not Detected Kit Lot Number [id number] Kit Expiration Date 03/11/23 Swab Structure of anterior portion of neck / Unknown 07/16/2022 4:23 PM EDT Result [facility] Neha Zhou APRN POINT OF CARE TEST ENTER/CORY T ORDERABLES Final Result * POCT SARS-CoV-2 COVID-19 Influenza A,B (07/16/2022 4:23 PM EDT) POCT Influenza A PCR Not Detected Not Detected POCT Influenza B PCR Not Detected Not Detected POCT COVID 19 PCR Not Detected Not Detected POCT COVID/Flu A,B Kit Lot [id number] POCT COVID/FLU A,B Kit Expiration 03/11/23 Nasopharyngeal Swab Nasopharyngeal structure / Unknown 07/16/2022 4:23 PM EDT Neha Zhou PEDIATRIC RADIOLOGIST POINT OF CARE TEST ENTER/CORY T ORDERABLES Final Result documented in this encounter Visit Diagnoses Diagnosis Pharyngitis, unspecified etiology- Primary Other cough Acute frontal sinusitis, recurrence not specified Acute bronchitis, unspecified organism Chronic pain of left knee Chronic pain of right knee Dry eye syndrome, unspecified laterality Pain of foot, unspecified laterality Gouty arthritis Gouty arthropathy, unspecified Primary hypertension Unspecified essential hypertension documented in this encounter Additional Health Concerns Infection Onset Date Last Indicated Resolved Time COVID-19 Rule-Out 07/16/2022 07/16/2022 07/16/2022 4:23 PM EDT Assessment Noted Time PHQ-9 Depression Total Score: 3 02/28/20 3:07 PM EDT A fall risk assessment has been complete d for the patient 07/16/2022 3:09 PM EDT documented as of this encounter Care Teams Social Media Content Specialist Relationship Specialty Start Date End Date Neha Zhou, PEDIATRIC RADIOLOGIST [address] [place] [address] PCP - General 02/22/21 documented as of this encounter
--- OUTSIDE RECORDS SUMMARY | 2024-09-27 11:12 | XMS_ITS | Encounter Summary ---
Author Organization Healthcare Address [address] [place] [address] Care Team Providers Care Still Operator Batch Or Continuous Name Role Phone Neha Zhou TWISTING FRAME CHANGER Primary Care Provider Encounter Details Date Type Department Care Team (Late st Contact Info) Description 01/26/2023 Orders Only [facility] [address] [place] [id number] Neha Zhou APRN [address] [place] [address] Nausea; Weight loss; Hiatal hernia; Gastroesophageal reflux disease, unspecified whether esophagitis present; Diverticulitis Social History Tobacco Use Types Packs/Day Years [...] as of this encounter Visit Diagnoses Diagnosis Nausea Nausea alone Weight loss Loss of weight Hiatal hernia Diaphragmatic hernia without mention of obstruction or gangrene Gastroesophageal reflux disease, unspecified whether esophagitis present Diverticulitis Diverticulitis of colon (without mention of hemorrhage) documented in this encounter Additional Health Concerns Assessment Noted Time PHQ-9 Depression Total Score: 6 12/19/19 23 2:02 PM EST A fall risk assessment has been complete d for the patient 12/18/2022 2:02 PM EST A Body Mass Index follow-up plan has been documented for the patient 12/18/2022 2:59 PM EST documented as of this encounter Care Teams Still Operator Batch Or Continuous Relationship Specialty Start Date End Date Neha Zhou APRN [address] [place] [address] PCP - General 02/22/21 documented as of this encounter
--- OUTSIDE RECORDS SUMMARY | 2024-09-27 11:12 | XMS_ITS | Encounter Summary ---
Author Organization Healthcare Address [address] [place] [address] Care Team Providers Care Speech And Language Assistant Name Role Phone Neha Zhou AMMON Primary Care Provider Encounter Details Date Type Department Care Team (Latest Contact Info) Description 07/07/2023 Travel Social History Tobacco Use Types Packs/Day [...] money to buy more. Never true 02/21/20 Within the past 12 months, t he [...] place to sleep or slept in a long-term (including now)? No 02/20/2023 PHQ-9 Answer Date [...] documented as of this encounter Care Teams Speech And Language Assistant Relationship Specialty Start Date End Date Neha Zhou APRN [address] [place] [address] PCP - General 02/22/21 documented as of this encounter
--- OUTSIDE RECORDS SUMMARY | 2024-09-27 11:12 | XMS_ITS | Encounter Summary ---
Author Organization Healthcare Address [address] [place] [address] Care Team Providers Care Fpga Design Engineer Name Role Phone Neha Zhou AMMON Primary Care Provider Reason for Visit * Reason Comments Hospital Follow Up Encounter Details Date Type Department Care Team (Late st Contact Info) Description 03/18/2023 2:40 PM EDT Office Visit [facility] [address] [place] [phone] Fany Hinds, DO [address] [place] [address] Hyponatremia (Primary Dx) Social History Tobacco Use Types [...] Answer Date Recorded Patient Health Questionnaire-2 Score 3 03/18/2023 Hunger Vital Sign Answer Date Recorded Within [...] place to sleep or slept in a long term (including now)? No 02/20/2023 Education Answer Date Recorded What is the [...] Sign Reading Time Taken Comments Blood Pressure 158/88 03/18/2023 2:49 PM EDT Pulse 80 03/18/2023 2:29 PM EDT Temperature 36.3 ??C (97.4 ??F) 03/18/2023 2:29 PM ED T Respiratory Rate 16 03/18/2023 2:29 PM EDT Oxygen Saturation 93% 03/18/2023 2:29 PM EDT Inhaled Oxygen Concentration - - Weight 75.5 kg (166 lb 6 oz) 03/18/2023 2:29 PM EDT Height 157.5 cm (5' 2 ) 03/18/2023 2:29 PM EDT Body Mass Index 30.43 03/18/2023 2:29 PM EDT documented in this encounter Miscellaneous Notes * Clinician Note - Latia Solorio LPN - 03/18/2023 2:40 PM EDT The patient received dietary education because they have an above normal BMI. and The patient received exercise education because they have an above normal BMI. * Progress Notes - Fany Hinds DO - 03/18/2023 2:40 PM EDT Subjective Patient ID: Tammy Wood is a 77 y.o. female. Chief Complaint Patient presents with Hospital Follow Up HPI Tammy Wood is a 77 year old female following up after hospital discharge on 03/07 after being hospitalized due to hyponatremia secondary to acute GI loss. Patient had done prep for colonoscopy and had large amount of GI loss resulting in hyponatremia. Sodium corrected and patient was able to bedischarged without complication. Patient reports that she did return to the ED on 03/10 due to nausea but was not having vomiting or diarrhea at that time. Sodium was 138 on 03/10 during ER visit. Patient denies any further GI losses. She also denies any light headedness, weakness, nausea, or any other associated symptoms. Patient reports that due to soft BP, anti-hypertensive medications were heldat time of discharge. Patient says she has been checking her BP at least twice daily and it is typically in the 120s systolic and 80s diastolic. BP is elevated in clinic today but patient reports it has not been this high at home, she does note that she has been anxious for this appointment. Discussed with patient to continue to monitor BP at home and if BP is greater than 140 systolic or 90 diastolic to make an appointment for further evaluation and medication adjustment. The following portions of the chart were reviewed this encounter and updated as appropriate: Review of Systems Constitutional: Negative for activity change, appetite change, chills, fatigue and fever. HENT: Negative for congestion, rhinorrhea, sinus pain and sore throat. Eyes: Negative for pain and visual disturbance. Respiratory: Negative for cough, chest tightness, shortness of breath and wheezing. Cardiovascular: Negative for chest pain, palpitations and leg swelling. Gastrointestinal: Negative for abdominal pain, diarrhea, nausea and vomiting. Neurological: Negative for syncope, weakness and headaches. Objective Physical Exam Constitutional: Appearance: Normal appearance. She is normal weight. HENT: Head: Normocephalic and atraumatic. Nose: Nose normal. Eyes: Extraocular Movements: Extraocular movements intact. Conjunctiva/sclera: Conjunctivae normal. Pupils: Pupils are equal, round, and reactive to light. Cardiovascular: Rate and Rhythm: Normal rate and regular rhythm. Pulses: Normal pulses. Heart sounds: Normal heart sounds. Pulmonary: Effort: Pulmonary effort is normal. Breath sounds: Normal breath sounds. Abdominal: General: Abdomen is flat. Bowel sounds are normal. Palpations: Abdomen is soft. Musculoskeletal: General: Normal range of motion. Cervical back: Normal range of motion and neck supple. Skin: General: Skin is warm and dry. Neurological: General: No focal deficit present. Mental Status: She is alert and oriented to person, place, and time. Mental status is at baseline. Assessment/Plan Diagnoses and all orders for this visit: Hyponatremia - Comprehensive metabolic panel -CMP obtained revealed Na and other electrolytes wnl. No abnormalities on CMP. -Patient has been checking BP daily at home and reports readings consistently in 120s systolic ehyn09l diastolic. She has not had any readings over 140/90. Patient said she was anxious for appointment today. Denied any symptoms concerning for hypertensive emergency. -Patient wishes to continue to hold Lisinopril at this time due to normal BP readings at home. -RTC in 1 month for BP check with ambulatory BP log. -Patient verbalized understanding of this plan with no further questions at this time. Fany Hinds D.O. Cosigned by Sun Spain MD at 2023 11:08 PM EDT Associated attestation - Sun Spain MD - 2023 11:08 PM EDT I reviewed with the resident the medical history and the resident's findings on physical examination. I discussed with the resident the patient's diagnosis and concur with the treatment plan as documented in the resident note. documented in this encounter Plan of Treatment Not on file documented as of this encounter Procedures Procedure Name Priority Date/Time Associated Diagnosis Comments COMPREHENSIVE METABOLIC PANEL, PLASMA Routine 03/18/2023 3:17 PM EDT Hyponatremia documented in this encounter Results * (ABNORMAL) Comprehensive metabolic panel (03/18/2023 3:17 PM EDT) Glucose, Plasma 104(H) 74 - 99 mg/dL 03/18/2023 8:19 PM EDT [facility] BUN, Plasma 9 8 - 23 mg/dL 03/18/2023 8:19 PM EDT [facility] Creatinine, Plasma 0.74 0.60 - 1.10 mg/dL 03/18/2023 8:19 PM EDT [facility] BUN/Creatinine Ratio 12 03/18/2023 8:19 PM EDT [facility] Sodium, Plasma 138 136 - 145 mmol/L 03/18/2023 8:19 PM EDT [facility] Potassium, Plasma 4.1 3.7 - 4.8 mmol/L 03/18/2023 8:19 PM EDT [facility] Chloride, Plasma 102 97 - 107 mmol/L 03/18/2023 8:19 PM EDT [facility] CO2, Plasma 25 22 - 29 mmol/L 03/18/2023 8:19 PM EDT [facility] Anion Gap 11 6 - 16 mmol/L 03/18/2023 8:19 PM EDT [facility] Total Calcium, Plasma 9.1 8.9 - 10.2 mg/dL 03/18/2023 8:19 PM EDT [facility] Total Protein 6.6 6.3 - 7.9 g/dL 03/18/2023 8:19 PM EDT [facility] Albumin, Plasma 4.2 3.5 - 5.2 g/dL 03/18/2023 8:19 PM EDT [facility] AST, Plasma 16 9 - 36 U/L 03/18/2023 8:19 PM EDT [facility] ALT, Plasma 8 8 - 33 U/L 03/18/2023 8:19 PM EDT [facility] Alkaline Phosphatase, Plasma 78 46 - 142 U/L 03/18/2023 8:19 PM EDT [facility] Total Bilirubin, Plasma 0.4 0.2 - 1.1 mg/dL 03/18/2023 8:19 PM EDT [facility] eGFRcr 83.4 mL/min/1.7 3m*2 03/18/2023 8:19 PM EDT [facility] Comment: Reported eGFRcr in mL/min/1.73m2 is based the CKD-EPI 202 equation that does not use a race coefficient. Effective 05/07/22 our laboratory changed the eGFR calculation to the CKD-EPI 2021 equation from the previously reported eGFR, based on the MDRD equation. ??For comparisons between the two equations, please see laboratory website: ??[email or web address] Blood Venous blood specimen / Unknown Venipuncture / Unknown 03/18/2023 3:17 PM EDT 03/18/2023 3:17 PM EDT us Mandy Kee DO LAB BLOOD ORDERABLES Final Result [facility] [address] [place] [address] documented in this encounter Visit Diagnoses Diagnosis Hyponatremia- Primary Hyposmolality and/or hyponatremia documented in this encounter Additional Health Concerns Assessment Noted Time PHQ-9 Depression Total Score: 7 03/18/20 2:44 PM EDT A fall risk assessment has been complete d for the patient 03/18/2023 2:37 PM EDT A Body Mass Index follow-up plan has been documented for the patient 03/18/2023 3:24 PM EDT documented as of this encounter Care Teams Fpga Design Engineer Relationship Specialty Start Date End Date Neha Zhou APRN [address] [place] [address] PCP - General 02/22/21 documented as of this encounter
--- OUTSIDE RECORDS SUMMARY | 2024-09-27 11:12 | XMS_ITS | Encounter Summary ---
Author Organization Healthcare Address [address] [place] [place] [id number] Care Team Providers Care Subway Operator Name Role Phone Neha Zhou AMMON Primary Care Provider Encounter Details Date Type Department Care Team (Latest Contact Info) Description 03/18/2023 Travel Social History Tobacco Use Types Packs/Day [...] in a senior care (including now)? No 02/20/2023 Education Answer Date [...] documented as of this encounter Care Teams Subway Operator Relationship Specialty Start Date End Date Neha Zhou APRN [address] [place] [address] PCP - General 02/22/21 documented as of this encounter
--- OUTSIDE RECORDS SUMMARY | 2024-09-27 11:12 | XMS_ITS | Encounter Summary ---
Author Organization [facility] Address [address] [place] [address] Care Team Providers Care Academic Support Director Name Role Phone Neha Zhou AMMON Primary Care Provider [phone] Reason for Referral * Other Medical (Routine) - Closed Specialty Diagnoses / Procedures Referred By Lily carpenter Referred To Contact Diagnoses Chronic pain of both knees Procedures Large Joint Injection/Arthrocentesis: bilateral knee Raven Cordova DO [address] [place] [address] Phone: tel: fax: [facility] [address] [place] [address] Phone: tel: Referral ID Status Reason Start Date Expiration Date Visits Re quested Visits Authorized [id number] Closed 02/20/2023 08/21/2024 1 1 Reason for Visit * Reason Comments Knee Pain Bilateral knee injec tions Encounter Details Date Type Department Care Team (Late st Contact Info) Description 02/20/2023 10:20 AM EDT Office Visit [facility] [address] [place] [address] June Haney MD [address] [place] [address] Hyperkalemia (Primary Dx); Arthritis; Chronic pain of both shoulders; Chronic pain of both knees Social History Tobacco Use Types Packs/Day Years [...] Date Recorded Patient Health Questionnaire-2 Score 0 02/20/2023 Hunger Vital Sign Answer Date Recorded Within [...] [place] [facility] [place] (including [place])? No 02/20/2023 Education Answer Date [...] Sign Reading Time Taken Comments Blood Pressure 139/76 02/20/2023 10:39 AM EDT Pulse 84 02/20/2023 10:39 AM EDT Temperature 36.7 ??C (98 ??F) 02/20/2023 10:39 AM EDT Respiratory Rate 18 02/20/2023 10:39 AM EDT Oxygen Saturation 96% 02/20/2023 10:39 AM EDT Inhaled Oxygen Concentration - - Weight 75.3 kg (166 lb) 02/20/2023 10:39 AM EDT Height 157.5 cm (5' 2 ) 02/20/2023 10:39 AM EDT Body Mass Index 30.36 02/20/2023 10:39 AM EDT documented in this encounter Miscellaneous Notes * Clinician Note - Licha Goode LPN - 02/20/2023 10:20 AM EDT The patient received dietary education because they have an above normal BMI. and The patient received exercise education because they have an above normal BMI. * Progress Notes - June Haney MD - 02/20/2023 10:20 AM EDTAssociated Order(s): Large Joint Injection/Arthrocentesis: bilateral knee Subjective Patient ID: Tammy Wood is a 77 y.o. female. Chief Complaint Patient presents with Knee Pain Bilateral knee injections Tammy Wood is a 77yo who presents to clinic for follow up and bilateral knee injections. 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 She has been taking Advil PRN for pain and states she was recently prescribed Mobic, but had not started taking yet. Patient states she has been receiving steroid injections in her knees for awhile and this significantly improves her pain and mobility. Patient has rheumatoid arthritis on her problem list in the chart, however, states she has not been told she has RA and unsure of this diagnosis. Patient requesting steroid injections in bilateral shoulders as well. Reports she has not had imaging of shoulders. No additional concerns voiced. The following portions of the chart were reviewed this encounter and updated as appropriate: Tobacco Allergies Meds Problems Med Hx Surg Hx Fam Hx Review of Systems All other systems reviewed and are negative. Objective Physical Exam Vitals reviewed. Constitutional: Appearance: Normal appearance. HENT: Head: Normocephalic and atraumatic. Right Ear: External ear normal. Left Ear: External ear normal. Nose: Nose normal. Mouth/Throat: Mouth: Mucous membranes are moist. Pharynx: Oropharynx is clear. Eyes: Extraocular Movements: Extraocular movements intact. Conjunctiva/sclera: Conjunctivae normal. Cardiovascular: Rate and Rhythm: Normal rate. Pulmonary: Effort: Pulmonary effort is normal. Abdominal: General: There is no distension. Musculoskeletal: Right shoulder: Decreased range of motion (2/2 pain). Left shoulder: Decreased range of motion (2/2 pain). Cervical back: Neck supple. Right knee: Bony tenderness and crepitus present. Left knee: Bony tenderness and crepitus present. Skin: General: Skin is warm and dry. Neurological: Mental Status: She is alert and oriented to person, place, and time. Mental status is at baseline. Psychiatric: Mood and Affect: Mood normal. Behavior: Behavior normal. Thought Content: Thought content normal. Judgment: Judgment normal. Large Joint Injection/Arthrocentesis: bilateral knee Indications: pain Details: 22 G needle, anterolateral approach Medications (Right): (1cc kenalog, 2cc bupivicaine, 2cc 1% lidocaine) Outcome: tolerated well, no immediate complications Procedure, treatment alternatives, risks and benefits explained, specific risks discussed. Consent was given by the patient. Assessment/Plan Diagnoses and all orders for this visit: Hyperkalemia - Basic metabolic panel Arthritis - Rheumatoid factor; Future - Cyclic citrul peptide antibody, IgG; Future - XR Shoulder Right 2+ Views; Future - XR Shoulder Left 2+ Views; Future - ANTI NUCLEAR AB; Future Chronic pain of both shoulders - XR Shoulder Right 2+ Views; Future - XR Shoulder Left 2+ Views; Future Chronic pain of both knees - Large Joint Injection/Arthrocentesis -order BMP to follow up on hyperkalemia -due to listed diagnosis of RA in patient chart and severity of patient's arthritis, ordered labs to further evaluate Cosigned by Raven Cordova DO at 02/23/2023 11:07 AM EDT Associated attestation - Raven Cordova DO - 02/23/2023 11:07 AM EDT I saw and evaluated the patient. I discussed the case with the resident and agree with the findingsand plan as documented. I was present for entire procedure. documented in this encounter Plan of Treatment Not on file documented as of this encounter Procedures Procedure Name Priority Date/Time Associated Diagnosis Comments JENNY SINGLE PATTERN (REFLEX ONLY) (SO) Routine 02/20/2023 11:43 AM EDT Arthritis CYCLIC CITRUL PEPTIDE ANTIBODY IGG Routine 02/20/2023 11:43 AM EDT Arthritis RHEUMATOID FACTOR, PLASMA Routine 02/20/2023 11:43 AM EDT Arthritis ANTINUCLEAR ANTIBODY (JENNY) WITH HEP-2 SUBSTRATE, IGG BY IFA (SO) Routine 02/20/2023 11:43 AM EDT Arthritis BASIC METABOLIC PANEL, PLASMA Routine 02/20/2023 11:43 AM EDT Hyperkalemia [place] ARTHROCENTESIS ASPIR&/INJ MAJOR JT/BURSA W/O US Routine 02/20/2023 10:20 AM EDT Chronic pain of both knees documented in this encounter Results * (ABNORMAL) JENNY Single Pattern (Reflex only) (02/20/2023 11:43 AM EDT) JENNY Pattern Homogeneou s(A) 02/25/2023 11:56 PM EDT [facility] ([facility]) JENNY Titer 1:160(A) 02/25/2023 11:56 PM EDT [facility] ([facility]) Blood Venous blood specimen / Unknown Venipuncture / Unknown 02/20/2023 11:43 AM EDT 02/20/2023 11:43 AM EDT Narrative [employer]) - 02/25/2023 11:56 PM EDT Performed By: [facility] [address] [place] [address] Furnace Keeper: Ric Whiteside MD, PhD Stevie Headley DO LAB BLOOD ORDERABLES Final Res ult [employer] [facility]) [address] [place] [address] * (ABNORMAL) ANTI NUCLEAR AB (02/20/2023 11:43 AM EDT) JENNY INTERPRETIVE COMMENT See Note 02/25/2023 11:56 PM EDT [facility] ([facility]) Anti Nuc Ab Screen Detected( H) <1:80 02/25/2023 11:56 PM EDT [facility] ([facility]) Blood Venous blood specimen / Unknown Venipuncture / Unknown 02/20/2023 11:43 AM EDT 02/20/2023 11:43 AM EDT Narrative [employer] [facility] [employer]) - 02/25/2023 11:56 PM EDT Homogeneous Pattern Clinical associations: SLE, drug-induced SLE or JIN. Main autoantibodies: Anti-dsDNA, anti-histones or anti-chromatin (anti-nucleosome) List of Abbreviations Antisynthetase syndrome (ARS), chronic active hepatitis (CAH), ?? inflammatory ??myopathies (IM) [dermatomyositis (DM), polymyositis (PM), necrotizing autoimmune myopathy (NAM)], interstitial lung disease (ILD), juvenile idiopathic arthritis (JIN), mixed connective tissue disease (MCTD), primary biliary cholangitis (PBC), rheumatoid arthritis (RA), systemic autoimmune rheumatic diseases (SARD), Sjogren syndrome (SjS), systemic lupus erythematosus (SLE), systemic sclerosis (SSc), undifferentiated connective tissue disease (UCTD). INTERPRETIVE INFORMATION: JENNY Interpretive Comment Presence of antinuclear antibodies (JENNY) is a hallmark feature of systemic autoimmune rheumatic diseases (SARD). However, JENNY lacks diagnostic specificity and is associated with a variety of diseases (cancers, autoimmune, infectious, and inflammatory conditions) ??and may also occur in healthy individuals in varying prevalence. The lack of diagnostic specificity requires confirmation of positive JENNY by more specific serologic tests. JENNY (nuclear reactivity) positive patterns reported include centromere, homogeneous, nuclear dots, nucleolar, or speckled. JENNY (cytoplasmic reactivity) positive patterns reported include reticular/AMA, discrete/GW body-like, polar/golgi-like, cytoplasmic speckled or rods and rings. All positive patterns are reported to endpoint titers (1:2560). Reported patterns may help guide differential diagnosis, although they may not be specific for individual antibodies or diseases. Mitotic staining patterns not reported. ??Negative results do not necessarily rule out SARD. Performed By: [facility] [address] [place] [address] Furnace Keeper: Ric Whiteside MD, PhD Stevie Headley DO LAB BLOOD ORDERABLES Final Res ult [facility] ([facility]) [address] [place] [address] * Cyclic citrul peptide antibody, IgG (02/20/2023 11:43 AM EDT) Cyclic Citrul Peptide Antibody IgG <5.0 <=5.0 U/mL 02/20/2023 9:52 PM EDT [facility] Blood Venous blood specimen / Unknown Venipuncture / Unknown 02/20/2023 11:43 AM EDT 02/20/2023 11:43 AM EDT us Stevie Headley DO LAB BLOOD ORDERABLES Final Res ult Performing Organization Address City/[facility]/ZIP Co de Phone Number [facility] [address] [place] [address] * Rheumatoid factor (02/20/2023 11:43 AM EDT) Rheumatoid Factor, Plasma <10 <14 IU/mL 02/20/2023 11:42 PM EDT [facility] Blood Venous blood specimen / Unknown Venipuncture / Unknown 02/20/2023 11:43 AM EDT 02/20/2023 11:43 AM EDT us Stevie Headley LAB BLOOD ORDERABLES Final Res ult Performing Organization Address City/[facility] Co de Phone Number [facility] [address] [place] [address] * Basic metabolic panel (02/20/2023 11:43 AM EDT) Glucose, Plasma 97 74 - 99 mg/dL 02/20/2023 9:24 PM EDT [facility] BUN, Plasma 17 8 - 23 mg/dL 02/20/2023 9:24 PM EDT [facility] Creatinine, Plasma 0.76 0.60 - 1.10 mg/dL 02/20/2023 9:24 PM EDT [facility] BUN/Creatinine Ratio 22 02/20/2023 9:24 PM EDT [facility] Sodium, Plasma 136 136 - 145 mmol/L 02/20/2023 9:24 PM EDT [facility] Potassium, Plasma 4.4 3.7 - 4.8 mmol/L 02/20/2023 9:24 PM EDT [facility] Chloride, Plasma 100 97 - 107 mmol/L 02/20/2023 9:24 PM EDT [facility] CO2, Plasma 24 22 - 29 mmol/L 02/20/2023 9:24 PM EDT [facility] Anion Gap 12 6 - 16 mmol/L 02/20/2023 9:24 PM EDT [facility] Total Calcium, Plasma 9.2 8.9 - 10.2 mg/dL 02/20/2023 9:24 PM EDT [facility] eGFRcr 80.8 mL/min/1.7 3m*2 02/20/2023 9:24 PM EDT [facility] Comment: Reported eGFRcr in mL/min/1.73m2 is based the CKD-EPI 2020 equation that does not use a race coefficient. Effective 05/07/22 our laboratory changed the eGFR calculation to the CKD-EPI 202 equation from the previously reported eGFR, based on the MDRD equation. ??For comparisons between the two equations, please see laboratory website: ??[email or web address] Blood Venous blood specimen / Unknown Venipuncture / Unknown 02/20/2023 11:43 AM EDT 02/20/2023 11:43 AM EDT us Stevie Headley DO LAB BLOOD ORDERABLES Final Res ult Performing Organization Address City/State/[facility] Co de Phone Number [facility] [address] [place] [address] * [place] ARTHROCENTESIS ASPIR&/INJ MAJOR JT/BURSA W/O US (02/20/2023 10:20 AM EDT) Narrative Raven Cordova DO - 02/20/2023 10:20 AM EDT Jnue Haney MD ? 02/20/2023 12:46 PM Large Joint Injection/Arthrocentesis: bilateral knee Indications: pain Details: 22 G needle, anterolateral approach Medications (Right): (1cc kenalog, 2cc bupivicaine, 2cc 1% lidocaine) Outcome: tolerated well, no immediate complications Procedure, treatment alternatives, risks and benefits explained, specific risks discussed. Consent was given by the patient. us Raven Cordova DO IN CLINIC/BEDSIDE ORDERABLES F inal Result documented in this encounter Visit Diagnoses Diagnosis Hyperkalemia- Primary Hyperpotassemia Arthritis Unspecified arthropathy, site unspecified Chronic pain of both shoulders Chronic pain of both knees documented in this encounter Additional Health Concerns Assessment Noted Time PHQ-9 Depression Total Score: 6 02/21/20 23 10:41 AM EDT A fall risk assessment has been complete d for the patient 02/20/2023 10:42 AM EDT A Body Mass Index follow-up plan has been documented for the patient 02/20/2023 11:57 AM EDT documented as of this encounter Care Teams Academic Support Director Relationship Specialty Start Date End Date Neha Zhou APRN [address] [place] [address] PCP - General 02/22/21 documented as of this encounter
--- OUTSIDE RECORDS SUMMARY | 2024-09-27 11:12 | XMS_ITS | Encounter Summary ---
Author Organization Healthcare Address [address] [id number] Care Team Providers Care Distribution Center Supervisor Name Role Phone Neha Zhou AMMON Primary Care Provider Encounter Details Date Type Department Care Team (Latest Contact Info) Description 02/20/2023 Travel Social History Tobacco Use Types Packs/Day [...] in a long-term (including now)? No 02/20/2023 Education Answer Date [...] Time PHQ-9 Depression Total Score: 6 02/21/20 10:41 AM EDT A fall risk assessment has been complete d for the patient 02/20/2023 10:42 AM EDT A Body Mass Index follow-up plan has been documented for the patient 02/20/2023 11:57 AM EDT documented as of this encounter Care Teams Distribution Center Supervisor Relationship Specialty Start Date End Date Neha Zhou APRN [address] [place] [address] PCP - General 02/22/21 documented as of this encounter
--- OUTSIDE RECORDS SUMMARY | 2024-09-27 11:12 | XMS_ITS | Encounter Summary ---
Author Organization [facility] Address [address] [place] [address] Care Team Providers Care Underwear Hemmer Name Role Phone Neha Zhou APRN Primary Care Provider Reason for Referral * Other Medical (Routine) - Closed Specialty Diagnoses / Procedures Referred By Lily carpenter Referred To Contact Family Medicine Diagnoses Chronic pain of left knee Procedures Large Joint Injection/Arthrocentesis : L knee Raven Cordova DO [address] [place] [address] Phone: tel: fax: [facility] [address] [place] [address] Phone: tel: fax: Referral ID Status Reason Start Date Expiration Date Visits Re quested Visits Authorized [id number] Closed 05/01/2022 10/31/2023 1 1 Reason for Visit * Reason Comments Med Refill Hypertension Encounter Details Date Type Department Care Team (Latest Contact Info) Description 04/29/2022 2:00 PM EDT Office Visit [facility] [address] [place] [address] Neha Zhou APRN [address] [place] [address] Plantar wart of right foot (Primary Dx); Chronic pain of left knee; Arthritis; Acute frontal sinusitis, recurrence not specified; Dry eye syndrome, unspecified laterality; Gouty arthritis; Primary hypertension; Head sensory problem; Heel spur, unspecified laterality; Seasonal allergic rhinitis, unspecified trigger; Sjogren's syndrome, with unspecified organ involvement (CMS/HCC); Other symptoms and signs involving the musculoskeletal system Social History Tobacco Use Types Packs/Day Years [...] Date Recorded Patient Health Questionnaire-2 Score 1 03/26/2022 Hunger Vital Sign Answer Date Recorded Within [...] in a long term (including now)? No 04/29/2022 Education Answer Date [...] suspected to have Coronavirus/COVID-19? No / Unsure 04/29/2022 1:45 PM EDT documented as of this encounter Last Filed Vital Signs Vital Sign Reading Time Taken Comments Blood Pressure 139/81 04/29/2022 1:54 PM EDT Pulse 96 04/29/2022 1:54 PM EDT Temperature 37.1 ??C (98.7 ??F) 04/29/2022 1:54 PM ED T Respiratory Rate 18 04/29/2022 1:54 PM EDT Oxygen Saturation 97% 04/29/2022 1:54 PM EDT Inhaled Oxygen Concentration - - Weight 76.7 kg (169 lb) 04/29/2022 1:54 PM EDT Height 157.5 cm (5' 2 ) 04/29/2022 1:54 PM EDT Body Mass Index 30.91 04/29/2022 1:54 PM EDT documented in this encounter Miscellaneous Notes * Patient Instructions - Neha Zhou APRN - 05/03/2022 1:36 PM EDT reviewed diet exercise activity and nutrition; exercise one half hour day 5 days week; bmi less than 25 Pt wants left knee injected today--consulted w precepting physician * Clinician Note - Raquel Lemons LPN - 04/29/2022 2:00 PM EDT Body mass index is 30.91 kg/m??. The patient received dietary education because they have an above normal BMI. and The patient received exercise education because they have an above normal BMI. * Progress Notes - Neha Zhou APRN - 04/29/2022 2:00 PM EDT Subjective Patient ID: Tammy Wood is a 77 y.o. female. Here for check up Allergic rhinitis Rheumatoid arthritis sjogrens disease Osteoarthritis Gout htn Wants cyndie knee injections today Plantar wart rt foot--needs to see dr luna Heart skipping beats at times but no edema Co pain left knee--limping Says knee feels like bone against bone No fever No vom No diarrhea No rash Review of Systems Constitutional: Positive for fatigue. HENT: Positive for ear pain, postnasal drip, rhinorrhea, sinus pressure, sinus pain and sore throat. Respiratory: Positive for cough. Musculoskeletal: Positive for arthralgias, back pain and gait problem. Left knee pain Psychiatric/Behavioral: The patient is nervous/anxious. Objective Visit Vitals BP 139/81 (BP Location: Left arm, Patient Position: Sitting) Pulse 96 Temp 37.1 ??C (98.7 ??F) (Temporal) Ht 1.575 m (5' 2 ) Wt 76.7 kg (169 lb) SpO2 97% BMI 30.91 kg/m?? Physical Exam Vitals and nursing note reviewed. Constitutional: Appearance: Normal appearance. She is obese. HENT: Head: Normocephalic. Right Ear: Tympanic membrane, ear canal and external ear normal. Left Ear: Tympanic membrane, ear canal and external ear normal. Nose: Congestion present. Mouth/Throat: Mouth: Mucous membranes [...] normal. Palpations: Abdomen is soft. Musculoskeletal: General: Tenderness present. Normal range of motion. Comments: Limping Left knee pain--inc pain Inc crepitus cyndie knee Inc pain varus and valgus maneuver Skin: General: Skin is warm and dry. Capillary Refill: Capillary refill takes less than 2 seconds. Neurological: General: No focal deficit present. Mental Status: She is alert and oriented to person, place, and time. Psychiatric: Behavior: Behavior normal. Thought Content: Thought content normal. Judgment: Judgment normal. Comments: anxiety Assessment/Plan Diagnoses and all orders for this visit: Plantar wart of right foot - Ambulatory referral to Podiatry; Future Chronic pain of left knee - Large Joint Injection/Arthrocentesis: L knee - triamcinolone acetonide (Kenalog-40) injection 40 mg Arthritis Acute frontal sinusitis, recurrence not specified Dry eye syndrome, unspecified laterality Gouty arthritis Primary hypertension Head sensory problem Heel spur, unspecified laterality Seasonal allergic rhinitis, unspecified trigger Sjogren's syndrome, with unspecified organ involvement (CMS/HCC) Other symptoms and signs involving the musculoskeletal system Other orders - lisinopril 20 MG tablet; Take 1 tablet (20 mg total) by mouth 1 (one) time each day. * Progress Notes - Raven Cordova DO - 04/29/2022 2:00 PM EDTAssociated Order(s): Large Joint Injection/Arthrocentesis: L knee Post-Procedure Diagnose(s): Chronic pain of left knee Patient ID: Tammy Wood is a 77 y.o. female. Encounter Diagnosis Name Primary? Plantar wart of right foot Yes . Patient ID: Tammy Wood is a 77 y.o. female. Encounter Diagnosis Name Primary? Plantar wart of right foot Yes Large Joint Injection/Arthrocentesis: L knee on 04/29/2022 8:36 AM Indications: pain and joint swelling Details: 22 G needle, anterolateral approach Outcome: tolerated well, no immediate complications Used 3cc of 1% plain lidocaine, 3cc of Bupivicaine, and 1cc of Kenalog 40mg/ml. Procedure, treatment alternatives, risks and benefits explained, specific risks discussed. Consent was given by the patient. Patient was prepped and draped in the usual sterile fashion. NDC # for Kenalog [address]-8 LOT # [id number] EXP 08/2022 documented in this encounter Plan of Treatment Not on file documented as of this encounter Procedures Procedure Name Priority Date/Time Associated Diagnosis Comments [place] ARTHROCENTESIS ASPIR&/INJ MAJOR JT/BURSA W/O US Routine 04/29/2022 8:36 AM EDT Chronic pain of left knee documented in this encounter Results * [place] ARTHROCENTESIS ASPIR&/INJ MAJOR JT/BURSA W/O US (04/29/2022 8:36 AM EDT) Narrative Raven Cordova DO - 04/29/2022 8:36 AM EDT Raven Cordoav DO ? 05/03/2022 ??1:37 PM Large Joint Injection/Arthrocentesis: L knee on 04/29/2022 8:36 AM Indications: pain and joint swelling Details: 22 G needle, anterolateral approach Outcome: tolerated well, no immediate complications Used 3cc of 1% plain lidocaine, 3cc of Bupivicaine, and 1cc of Kenalog 40mg/ml. Procedure, treatment alternatives, risks and benefits explained, specific risks discussed. Consent was given by the patient. Patient was prepped and draped in the usual sterile fashion. us Raven Cordova DO IN CLINIC/BEDSIDE ORDERABLES F inal Result documented in this encounter Visit Diagnoses Diagnosis Plantar wart of right foot- Primary Plantar wart Chronic pain of left knee Arthritis Unspecified arthropathy, site unspecified Acute frontal sinusitis, recurrence not specified Dry eye syndrome, unspecified laterality Gouty arthritis Gouty arthropathy, unspecified Primary hypertension Unspecified essential hypertension Head sensory problem Sensory problem with head Heel spur, unspecified laterality Seasonal allergic rhinitis, unspecified trigger Sjogren's syndrome, with unspecified organ involvement (CMS/HCC) Other symptoms and signs involving the musculoskeletal system documented in this encounter Administered Medications Inactive Administered Medications - up to 3 most recent administrations Medication Order MAR Action Action Date Dose Rate Site triamcinolone acetonide (Kenalog-40) injection 40 mg 40 mg, Intra-articular, Once, 1 dose, On Thu04/29/22 at 0000, RoutineIndications:Chronic pain of left knee Given 04/29/2022 8:40 AM EDT 40 mg documented in this encounter Additional Health Concerns Assessment Noted Time PHQ-9 Depression Total Score: 3 02/28/20 3:07 PM EDT A fall risk assessment has been complete d for the patient 04/29/2022 1:57 PM EDT documented as of this encounter Care Teams Underwear Hemmer Relationship Specialty Start Date End Date Neha Zhou APRN [address] [place] [address] PCP - General 02/22/21 documented as of this encounter
--- OUTSIDE RECORDS SUMMARY | 2024-09-27 11:12 | XMS_ITS | Encounter Summary ---
Author Organization [facility] Address [address] [id number] Care Team Providers Care Strategy Director Name Role Phone Neha Zhou AMMON Primary Care Provider Encounter Details Date Type Department Care Team (Latest Contact Info) Description 04/29/2022 Travel Social History Tobacco Use Types Packs/Day [...] place to sleep or slept in a fpc (including now)? No 04/29/2022 Education Answer Date [...] PM EDT documented as of this encounter Plan of Treatment Not on file documented as of this encounter Visit Diagnoses Not on filedocumented in this encounter Additional Health Concerns Assessment Noted Time PHQ-9 Depression Total Score: 3 02/28/20 3:07 PM EDT A fall risk assessment has been complete d for the patient 04/29/2022 1:57 PM EDT documented as of this encounter Care Teams Strategy Director Relationship Specialty Start Date End Date Neha Zhou APRN [address] [place] [address] PCP - General 02/22/21 documented as of this encounter
--- OUTSIDE RECORDS SUMMARY | 2024-09-27 11:12 | XMS_ITS | Encounter Summary ---
Author Organization [facility] Address [address] [place] [address] Care Team Providers Care Protection Mgr Name Role Phone Neha Zhou REPLENISHMENT ANALYST Primary Care Provider [phone] Reason for Visit * Reason Comments Sore Throat Headache, and tonsil stones. Encounter Details Date Type Department Care Team (Late st Contact Info) Description 08/26/2022 2:20 PM EST Office Visit [facility] [address] [place] [address] Neha Zhou APRN [address] [place] [address] Sore throat (Primary Dx); Acute upper respiratory infection, unspecified ; Gastroesophageal reflux disease without esophagitis; Gouty arthritis; Chronic pain of left knee; Chronic pain of right knee; Dry eye syndrome, unspecified laterality; Pharyngitis, unspecified etiology; Seasonal allergic rhinitis, unspecified trigger; Sjogren's syndrome, with unspecified organ involvement ([facility]) Social History Tobacco Use Types Packs/Day Years Used Date Smoking Tobacco: Never Smokeless Tobacco: Never Tobacco Cessation:Counseling Given: Yes Alcohol Use Standard Drinks/Week Comments No 0 [...] slept in a halfway (including now)? No 04/29/2022 Education Answer Date [...] AM EST documented as of this encounter Last Filed Vital Signs Vital Sign Reading Time Taken Comments Blood Pressure 142/82 08/26/2022 2:12 PM EST Pulse 81 08/26/2022 2:07 PM EST Temperature 36.6 ??C (97.8 ??F) 08/26/2022 2:07 PM ES T Respiratory Rate 20 08/26/2022 2:07 PM EST Oxygen Saturation 98% 08/26/2022 2:07 PM EST Inhaled Oxygen Concentration - - Weight 77.7 kg (171 lb 3.2 oz) 08/26/2022 2:07 P M EST Height 157.5 cm (5' 2 ) 08/26/2022 2:07 PM EST Body Mass Index 31.31 08/26/2022 2:07 PM EST documented in this encounter Miscellaneous Notes * Patient Instructions - Neha Zhou APRN - 08/26/2022 2:20 PM EST reviewed diet exercise activity and nutrition; exercise one half hour day 5 days week; bmi less than 25 Push po fluids To rtn to clinic later this week for cyndie knee injections * Progress Notes - Neha Zhou APRN - 08/26/2022 2:20 PM EST Subjective Patient ID: Tammy Wood is a 77 y.o. female. Here for check up and rt ear stopped up Sinus infection and drainage Post nasal drainage Gerd Taking probiotics Htn Gout arthritis Co cyndie knee pain Dificulty walking Dry eye syndrome No fever No vom No diarrhea No rash Review of Systems Constitutional: Positive for fatigue. HENT: Positive for congestion, postnasal drip, rhinorrhea and sore throat. Respiratory: Positive for cough. Gastrointestinal: Positive for abdominal pain. Gerd Musculoskeletal: Positive for arthralgias, back pain, gait problem, joint swelling and myalgias. Arthritis Joint changes cyndie knees and cyndie hands Crepitus cyndie knees Psychiatric/Behavioral: The patient is nervous/anxious. All other systems reviewed and are negative. Objective Visit Vitals BP (!) 142/82 Pulse 81 Temp 36.6 ??C (97.8 ??F) Ht 1.575 m (5' 2 ) Wt 77.7 kg (171 lb 3.2 oz) SpO2 98% BMI 31.31 kg/m?? Physical Exam Vitals (limping today) and nursing note reviewed. Constitutional: Appearance: Normal appearance. She is obese. HENT: Head: Normocephalic. Right Ear: Tympanic membrane normal. Left Ear: Tympanic membrane normal. Nose: Congestion present. Mouth/Throat: Mouth: Mucous membranes are moist. Pharynx: Posterior oropharyngeal erythema present. Eyes: Extraocular Movements: Extraocular movements intact. Conjunctiva/sclera: Conjunctivae normal. Pupils: Pupils are equal, round, and reactive to light. Comments: Dry eye cyndie Cardiovascular: Rate and Rhythm: Normal rate and regular rhythm. Pulses: Normal pulses. Heart sounds: Normal heart sounds. Pulmonary: Effort: Pulmonary effort is normal. Breath sounds: Normal breath sounds. Abdominal: General: Abdomen is flat. Bowel sounds are normal. Palpations: Abdomen is soft. Musculoskeletal: General: Swelling, tenderness and deformity present. Cervical back: Normal range of motion. Comments: Limping Arthritic changes cyndie knees Cyndie knee pain Pos knee bulge Pos varus and valgus maneuvers cyndie knees Arthritic changes cyndie hands Skin: General: Skin is warm and dry. Capillary Refill: Capillary refill takes less than 2 seconds. Neurological: General: No focal deficit present. Mental Status: She is alert and oriented to person, place, and time. Psychiatric: Behavior: Behavior normal. Thought Content: Thought content normal. Judgment: Judgment normal. Comments: Anxiety stress Assessment/Plan Diagnoses and all orders for this visit: Sore throat - POCT Strep A PCR - POCT SARS-CoV-2 COVID-19 Influenza A,B Acute upper respiratory infection, unspecified - POCT SARS-CoV-2 COVID-19 Influenza A,B Gastroesophageal reflux disease without esophagitis Gouty arthritis Chronic pain of left knee Chronic pain of right knee Dry eye syndrome, unspecified laterality Pharyngitis, unspecified etiology Seasonal allergic rhinitis, unspecified trigger Sjogren's syndrome, with unspecified organ involvement (CMS/[facility]) Other orders - fluticasone (Flonase) 50 MCG/ACT nasal spray; Administer 1 spray into each nostril 1 (one) time each day. Shake gently. Before first use, prime pump. After use, clean tip and replace cap. - cephalexin (Keflex) 500 MG capsule; Take 1 capsule (500 mg total) by mouth 2 (two) times a day for 7 days. - RABEprazole (Aciphex) 20 MG EC tablet; Take 1 tablet (20 mg total) by mouth 1 (one) time each daybefore breakfast. Do not crush, chew, or split. documented in this encounter Plan of Treatment Not on file documented as of this encounter Procedures Procedure Name Priority Date/Time Associated Diagnosis Comments POCT SARS COV2 COVID 19/INFLUENZA A,B Routine 08/26/2022 2:44 PM EST Sore throat Acute upper respiratory infection, unspecified POCT STREP A PCR Routine 08/26/2022 2:43 PM EST Sore throat documented in this encounter Results * POCT SARS-CoV-2 COVID-19 Influenza A,B (08/26/2022 2:44 PM EST) POCT Influenza A PCR Not Detected Not Detected POCT Influenza B PCR Not Detected Not Detected POCT COVID 19 PCR Not Detected Not Detected POCT COVID/Flu A,B Kit Lot [id number] POCT COVID/FLU A,B Kit Expiration 03/11/23 Nasopharyngeal Swab Nasopharyngeal structure / Unknown 08/26/2022 2:44 PM EST Neha Zhou APRN POINT OF CARE TEST ENTER/CORY T ORDERABLES Final Result * POCT Strep A PCR (08/26/2022 2:43 PM EST) POCT Strep A PCR Not Detected Not Detected Kit Lot Number [id number] Kit Expiration Date 03/11/23 Swab Structure of anterior portion of neck / Unknown 08/26/2022 2:43 PM EST Neha Zhou REPLENISHMENT ANALYST POINT OF CARE TEST ENTER/CORY T ORDERABLES Final Result documented in this encounter Visit Diagnoses Diagnosis Sore throat- Primary Acute pharyngitis Acute upper respiratory infection, unspecified Gastroesophageal reflux disease without esophagitis Esophageal reflux Gouty arthritis Gouty arthropathy, unspecified Chronic pain of left knee Chronic pain of right knee Dry eye syndrome, unspecified laterality Pharyngitis, unspecified etiology Seasonal allergic rhinitis, unspecified trigger Sjogren's syndrome, with unspecified organ involvement (CMS/[facility]) documented in this encounter Additional Health Concerns Infection Onset Date Last Indicated Resolved Time COVID-19 Rule-Out 08/26/2022 08/26/2022 08/26/2022 2:45 PM EST Assessment Noted Time PHQ-9 Depression Total Score: 5 08/26/20 22 2:08 PM EST A fall risk assessment has been complete d for the patient 08/26/2022 2:08 PM EST documented as of this encounter Care Teams Protection Mgr Relationship Specialty Start Date End Date Neha Zhou, AMMON [address] [place] [address] PCP - General 02/22/21 documented as of this encounter
--- OUTSIDE RECORDS SUMMARY | 2024-09-27 11:12 | XMS_ITS | Encounter Summary ---
Author Organization [facility] Address [address] [place] [address] Care Team Providers Care Social Contact Worker Name Role Phone Neha Zhou AMMON Primary Care Provider Encounter Details Date Type Department Care Team (Latest Contact Info) Description 07/17/2023 Travel Social History Tobacco Use Types Packs/Day [...] health care facility (including now)? No 02/20/2023 PHQ-9 Answer Date [...] as of this encounter Care Teams Social Contact Worker Relationship Specialty Start Date End Date Neha Zhou APRN [address] [place] [address] PCP - General 02/22/21 documented as of this encounter
--- OUTSIDE RECORDS SUMMARY | 2024-09-27 11:12 | XMS_ITS | Encounter Summary ---
Author Organization [facility] Address [address] [place] [address] Care Team Providers Care Inbound Sales Advisor Name Role Phone Neha Zhou AMMON Primary Care Provider Encounter Details Date Type Department Care Team (Late st Contact Info) Description 04/07/2022 Telephone [facility] [address] [place] [address] [facility] [address] [facility] Social History Tobacco Use Types Packs/Day Years Used Date Smoking Tobacco: Never Smokeless Tobacco: Never Alcohol Use Standard Drinks/Week Comments No 0 (1 standard drink = 0.6 oz pur e alcohol) Humiliation, Afraid, Rape, and Kick questionnair e Answer Date Recorded Within the last year, have y ou been afraid of your partner or ex-partner? No 06/03/2021 Within the last year, have y ou been humiliated or emotionally abused in other ways by your partner or ex-partner? No Within the last year, have y ou been kicked, hit, slapped, or otherwise physically hurt by your partner or ex-partner? No 06/03/2021 Within the last year, have y ou been raped or forced to have any kind of sexual activity by your partner or ex-partner? No 06/03/2021 AUDIT-C Answer Date Recorded Q1: How often [...] care, and heating? Not hard at all 06/03/2021 PHQ-2 Answer Date Recorded Patient Health Questionnaire-2 Score 1 03/26/2022 Hunger Vital Sign Answer Date Recorded Within the past 12 months, y ou worried that your food would run out before you got the money to buy more. Never true 06/03/20 21 Within the past 12 months, t he food you bought just didn't last and you didn't have money to get more. Never true 06/03/2021 PRAPARE - Transportation Answer Date Re corded In the past 12 months, has l ack of transportation kept you from medical appointments or from getting medications? No 02/09 In the past 12 months, has l ack of transportation kept you from meetings, work, or from getting things needed for daily living? No 02/18/2022 Education Answer Date Recorded What is the [...] suspected to have Coronavirus/COVID-19? No / Unsure 03/26/2022 9:23 AM EDT documented as of this encounter Plan of Treatment Not on file documented as of this encounter Visit Diagnoses Not on filedocumented in this encounter Additional Health Concerns Assessment Noted Time PHQ-9 Depression Total Score: 3 02/28/20 22 3:07 PM EDT A fall risk assessment has been complete d for the patient 03/26/2022 9:37 AM EDT documented as of this encounter Care Teams Inbound Sales Advisor Relationship Specialty Start Date End Date Neha Zhou APRN [address] [place] [address] PCP - General 02/22/21 documented as of this encounter
--- OUTSIDE RECORDS SUMMARY | 2024-09-27 11:12 | XMS_ITS | Encounter Summary ---
Author Organization [facility] Address [address] [place] [address] Care Team Providers Care Pediatric Speech Language Pathologist Name Role Phone Neha Zhou GREIGE GOODS EXAMINER Primary Care Provider Reason for Visit * Reason Comments Hernia Earache Pt states that her e ar is still bothering her. Sinusitis Hot Flashes Encounter Details Date Type Department Care Team (Late st Contact Info) Description 08/21/2022 2:00 PM EST Office Visit [facility] [address] [place] [address] Neha Zhou, GREIGE GOODS EXAMINER [address] [place] [phone] Flu vaccine need (Primary Dx); Gastroesophageal reflux disease without esophagitis; Dry eye syndrome, unspecified laterality; Primary hypertension; Gouty arthritis; Heel spur, unspecified laterality; Arthritis; Chronic pain of left knee; Chronic pain of right knee; Pain of foot, unspecified laterality; Sjogren's syndrome, with unspecified organ involvement (CMS/HCC); Seasonal allergic rhinitis, unspecified trigger Social History Tobacco Use Types Packs/Day Years [...] PM EST documented as of this encounter Last Filed Vital Signs Vital Sign Reading Time Taken Comments Blood Pressure 137/82 08/21/2022 1:48 PM EST Pulse 82 08/21/2022 1:48 PM EST Temperature 36.4 ??C (97.5 ??F) 08/21/2022 1:48 PM ES T Respiratory Rate 18 08/21/2022 1:48 PM EST Oxygen Saturation 99% 08/21/2022 1:48 PM EST Inhaled Oxygen Concentration - - Weight 77.6 kg (171 lb) 08/21/2022 1:48 PM EST Height 157.5 cm (5' 2 ) 08/21/2022 1:48 PM EST Body Mass Index 31.28 08/21/2022 1:48 PM EST documented in this encounter Miscellaneous Notes * Clinician Note - French Headley LPN - 08/21/2022 2:00 PM EST The patient received dietary education because they have an above normal BMI. and The patient received exercise education because they have an above normal BMI. Body mass index is 31.28 kg/m??. * Patient Instructions - Neha Zhou APRN - 08/21/2022 2:00 PM EST reviewed diet exercise activity and nutrition; exercise one half hour day 5 days week; bmi less than 25 * Progress Notes - Neha Zhou APRN - 08/21/2022 2:00 PM EST Subjective Patient ID: Tammy oWod is a 77 y.o. female. Here for abd pain and nausea Has gerd Post nasal drainage--sinus drainage Pharynx --co sore throat Taking probiotics Wants flu vaccine tidat Htn--needs rf on lisinopril Gout Arthritis Dry eye syndrome No fever No vom No diarrhea No rash Review of Systems Constitutional: Positive for fatigue. HENT: Positive for congestion, postnasal drip and sore throat. Musculoskeletal: Positive for arthralgias, back pain, gait problem, joint swelling and myalgias. Arthritis Joint changes cyndie knees and cyndie hands Crepitus cyndie knees Psychiatric/Behavioral: The patient is nervous/anxious. All other systems reviewed and are negative. Objective Visit Vitals BP 137/82 (BP Location: Right arm, Patient Position: Sitting) Pulse 82 Temp 36.4 ??C (97.5 ??F) Ht 1.575 m (5' 2 ) Wt 77.6 kg (171 lb) SpO2 99% BMI 31.28 kg/m?? Physical Exam Vitals and nursing note reviewed. Constitutional: Appearance: Normal appearance. She is obese. HENT: Head: Normocephalic. Right Ear: Ear canal and external ear normal. Left Ear: Ear canal and external ear normal. Ears: Comments: Tms bulging w serous fluid cyndie Nose: Nose normal. Mouth/Throat: Mouth: Mucous membranes [...] are normal. Palpations: Abdomen is soft. Musculoskeletal: Cervical back: Normal range of motion. Comments: Arthritis changes of cyndie hands Cyndie knee pain--crepitus cyndie knees Limps Skin: General: Skin is warm and dry. Capillary Refill: Capillary refill takes less than 2 seconds. Neurological: General: No focal deficit present. Mental Status: She is alert and oriented to person, place, and time. Psychiatric: Behavior: Behavior normal. Thought Content: Thought content normal. Judgment: Judgment normal. Comments: Anxiety stress Assessment/Plan Diagnoses and all orders for this visit: Flu vaccine need - Influenza Vac A&B SA Adj Quad prefilled syringe 0.5 mL Gastroesophageal reflux disease without esophagitis Dry eye syndrome, unspecified laterality Primary hypertension Gouty arthritis Heel spur, unspecified laterality Arthritis Chronic pain of left knee Chronic pain of right knee Pain of foot, unspecified laterality Sjogren's syndrome, with unspecified organ involvement (CMS/HCC) Seasonal allergic rhinitis, unspecified trigger Other orders - lisinopril 20 MG tablet; Take 1 tablet (20 mg total) by mouth 1 (one) time each day. documented in this encounter Plan of Treatment Not on file documented as of this encounter Visit Diagnoses Diagnosis Flu vaccine need- Primary Gastroesophageal reflux disease without esophagitis Esophageal reflux Dry eye syndrome, unspecified laterality Primary hypertension Unspecified essential hypertension Gouty arthritis Gouty arthropathy, unspecified Heel spur, unspecified laterality Arthritis Unspecified arthropathy, site unspecified Chronic pain of left knee Chronic pain of right knee Pain of foot, unspecified laterality Sjogren's syndrome, with unspecified organ involvement (CMS/HCC) Seasonal allergic rhinitis, unspecified trigger documented in this encounter Administered Medications Inactive Administered Medications - up to 3 most recent administrations Medication Order MAR Action Action Date Dose Rate Site Influenza Vac A&B SA Adj Quad prefilled syringe 0.5 mL 0.5 mL, Intramuscular, Once, On Marcia 08/21/22 at 1530, For 1 doseIndications:Flu vaccine need Given 08/21/2022 3:05 PM EST 0.5 mL Left Deltoid documented in this encounter Additional Health Concerns Assessment Noted Time PHQ-9 Depression Total Score: 3 08/21/20 1:52 PM EST A fall risk assessment has been complete d for the patient 08/21/2022 1:52 PM EST documented as of this encounter Care Teams Pediatric Speech Language Pathologist Relationship Specialty Start Date End Date Neha Zhou APRN [address] [place] [address] PCP - General 02/22/21 documented as of this encounter
--- OUTSIDE RECORDS SUMMARY | 2024-09-27 11:12 | XMS_ITS | Encounter Summary ---
Author Organization Healthcare Address [address] [place] [address] Care Team Providers Care Application Support Lead Name Role Phone Neha Zhou AMMON Primary Care Provider Encounter Details Date Type Department Care Team (Late st Contact Info) Description 07/17/2023 11:00 AM EDT Clinical Support [facility] [address] [place] [phone] Social History Tobacco Use Types Packs/Day Years [...] slept in a assisted (including now)? No 02/20/2023 PHQ-9 Answer Date [...] Sign Reading Time Taken Comments Blood Pressure 145/80 07/17/2023 11:20 AM EDT Pulse 62 07/17/2023 11:20 AM EDT Temperature - - Respiratory Rate - - Oxygen Saturation - - Inhaled Oxygen Concentration - - Weight - - Height - - Body Mass Index - - documented in this encounter Miscellaneous Notes * Clinician Note - Latia Solorio LPN - 07/17/2023 11:00 AM EDT Here for blood pressure check. BP - 145 80 Heart Rate - 60 * Clinician Note - Latia Solorio LPN - 07/17/2023 11:00 AM EDT BP recheck 145 80 Heart rate 60. Says she was instructed to take Lisinopril [address] Grabiel garibay taking Lisinopril 10mg daily and follow up with PCP next week. Instructed to check BP daily and bring log for pcp at visit. Pt agrees. documented in this encounter Plan of Treatment [...] documented as of this encounter Care Teams Application Support Lead Relationship Specialty Start Date End Date Neha Zhou APRN [address] [place] [phone] PCP - General 02/22/21 documented as of this encounter
--- OUTSIDE RECORDS SUMMARY | 2024-09-27 11:12 | XMS_ITS | Encounter Summary ---
Author Organization Healthcare Address [address] [id number] Care Team Providers Care Chief Customer Officer Name Role Phone Neha Zhou AMMON Primary Care Provider Encounter Details Date Type Department Care Team (Latest Contact Info) Description 07/16/2022 Travel Social History Tobacco Use Types Packs/Day [...] slept in a [facility] (including now)? No 04/29/2022 Education Answer Date [...] documented as of this encounter Care Teams Chief Customer Officer Relationship Specialty Start Date End Date Neha Zhou APRN [address] [place] [address] PCP - General 02/22/21 documented as of this encounter
--- OUTSIDE RECORDS SUMMARY | 2024-09-27 11:12 | XMS_ITS | Encounter Summary ---
Author Organization [facility] Address [address] [place] [address] Care Team Providers Care Ichthyologist Name Role Phone Neha Zhou OBSTETRICS TECHNICIAN Primary Care Provider Reason for Visit * Reason Comments Med Refill Encounter Details Date Type Department Care Team (Late st Contact Info) Description 01/05/2023 Refill [facility] [address] [place] [address] Neha Zhou APRN [address] [place] [address] Social History Tobacco Use Types [...] slept in a assisted (including now)? No 04/29/2022 Education Answer Date [...] documented as of this encounter Care Teams Ichthyologist Relationship Specialty Start Date End Date Neha Zhou APRN [address] [place] [address] PCP - General 02/22/21 documented as of this encounter
--- OUTSIDE RECORDS SUMMARY | 2024-09-27 11:12 | XMS_ITS | Encounter Summary ---
Author Organization [facility] Address [address] [id number] Care Team Providers Care Heading Saw Operator Name Role Phone Neha Zhou AMMON Primary Care Provider Encounter Details Date Type Department Care Team (Latest Contact Info) Description 08/26/2022 Travel Social History Tobacco Use Types Packs/Day [...] Date Recorded Patient Health Questionnaire-2 Score 1 08/26/2022 Hunger Vital Sign Answer Date Recorded Within [...] slept in a [facility] (including now)? No 04/29/2022 Education Answer Date [...] suspected to have Coronavirus/COVID-19? No / Unsure 08/26/2022 1:57 PM EST documented as of this encounter Plan of Treatment Not on file documented as of this encounter Visit Diagnoses Not on filedocumented in this encounter Additional Health Concerns Infection Onset Date Last Indicated Resolved Time COVID-19 Rule-Out 08/26/2022 08/26/2022 08/26/2022 2:45 PM EST Assessment Noted Time PHQ-9 Depression Total Score: 5 08/26/20 2:08 PM EST A fall risk assessment has been complete d for the patient 08/26/2022 2:08 PM EST documented as of this encounter Care Teams Heading Saw Operator Relationship Specialty Start Date End Date Neha Zhou APRN [address] [place] [phone] PCP - General 02/22/21 documented as of this encounter
--- OUTSIDE RECORDS SUMMARY | 2024-09-27 11:12 | XMS_ITS | Encounter Summary ---
Author Organization [facility] Address [address] [id number] Care Team Providers Care Venereal Disease Investigator Name Role Phone Neha Zhou AMMON Primary Care Provider [phone] Reason for Referral * Other Medical (Routine) - Closed Specialty Diagnoses / Procedures Referred By Lily t Referred To Contact Diagnoses Knee pain Procedures Knee Joint Injection: bilateral knee Sun Spain MD [address] [place] [address] Phone: tel: fax: [facility] [address] [place] [address] Phone: tel: Referral ID Status Reason Start Date Expiration Date Visits Re quested Visits Authorized [id number] Closed 08/28/2022 02/27/2024 1 1 Reason for Visit * Reason Comments Knee Pain Pt states she is her e for bilateral knee injections Encounter Details Date Type Department Care Team (Latest Contact Info) Description 08/28/2022 9:20 AM EST Office Visit [facility] [address] [place] [address] Tamara Fam, DO [address] [place] [address] Chronic pain of left knee (Primary Dx); Chronic pain of right knee; Arthritis; Bilateral primary osteoarthritis of knee Social History Tobacco Use Types Packs/Day Years [...] place to sleep or slept in a retirement (including now)? No 04/29/2022 Education Answer Date [...] Sign Reading Time Taken Comments Blood Pressure 120/76 08/28/2022 9:03 AM EST Pulse 88 08/28/2022 9:03 AM EST Temperature 37 ??C (98.6 ??F) 08/28/2022 9:03 AM EST Respiratory Rate 18 08/28/2022 9:03 AM EST Oxygen Saturation 94% 08/28/2022 9:03 AM EST Inhaled Oxygen Concentration - - Weight 77.1 kg (170 lb) 08/28/2022 9:03 AM EST Height 157.5 cm (5' 2 ) 08/28/2022 9:03 AM EST Body Mass Index 31.09 08/28/2022 9:03 AM EST documented in this encounter Miscellaneous Notes * Clinician Note - French Headley LPN - 08/28/2022 9:20 AM EST The patient received dietary education because they have an above normal BMI. and The patient received exercise education because they have an above normal BMI. Body mass index is 31.09 kg/m??. * Progress Notes - Tamara Fam DO - 08/28/2022 9:20 AM ESTAssociated Order(s): Knee Joint Injection: bilateral knee Post-Procedure Diagnose(s): Chronic pain of left knee; Chronic pain of right knee Subjective Patient ID: Tammy Wood is a 77 y.o. female. Dg Alcaraz is a 77 y.o. female presenting to clinic for bilateral knee injections. Patient has hx of RA effecting multiple joints. She has seen román in the past who recommended knee replacement. She reports worsening bilateral knee pain and mobility with swelling especially in the right knee. She signed consent which will be scanned to her chart. Review of Systems All other systems reviewed and are negative. Objective Visit Vitals BP 120/76 (BP Location: Right arm, Patient Position: Sitting) Pulse 88 Temp 37 ??C (98.6 ??F) Ht 1.575 m (5' 2 ) Wt 77.1 kg (170 lb) SpO2 94% BMI 31.09 kg/m?? Physical Exam Vitals reviewed. Constitutional: Appearance: Normal appearance. HENT: Head: Normocephalic and atraumatic. Nose: Nose normal. Mouth/Throat: Mouth: Mucous membranes are moist. Cardiovascular: Rate and Rhythm: Normal rate and regular rhythm. Heart sounds: Normal heart sounds. Pulmonary: Effort: Pulmonary effort is normal. Breath sounds: Normal breath sounds. Genitourinary: Comments: deferred Musculoskeletal: General: Normal range of motion. Cervical back: Normal range of motion and neck supple. Skin: General: Skin is warm and dry. Neurological: General: No focal deficit present. Mental Status: She is alert. Mental status is at baseline. Psychiatric: Mood and Affect: Mood normal. Behavior: Behavior normal. Thought Content: Thought content normal. Judgment: Judgment normal. Encounter Diagnoses Name Primary? Chronic pain of left knee Yes Chronic pain of right knee Arthritis Bilateral primary osteoarthritis of knee Knee Joint Injection: bilateral knee Indications: pain and joint swelling Details: 22 G needle, anterolateral approach Medications (Right): (Lidocaine 1% 2mL Kenalog (40mg/mL): 1mL Lot: [id number] EXP: 02/2024 [facility]: [address]-6) Medications (Left): (Lidocaine 1% 2mL Kenalog (40mg/mL): 1mL Lot: [id number] EXP: 02/2024 [facility]: [address]-8) Outcome: tolerated well, no immediate complications Procedure, treatment alternatives, risks and benefits explained, specific risks discussed (Specificrisks included flare reaction, increased pain, increased stiffness, injury to surrounding tissues, increased risk of infection, and risk of elevated glucose level.). Consent was given by the patient.Immediately prior to procedure a time out was called to verify the correct patient, procedure, equipment, client application support engineer and site/side marked as required. Patient was prepped and draped in the usual sterile fashion. Assessment/Plan Diagnoses and all orders for this visit: Chronic pain of left knee - Knee Joint Injection: bilateral knee - XR Knee Left 3 Views; Future - triamcinolone acetonide (Kenalog-40) injection 40 mg Chronic pain of right knee - Knee Joint Injection: bilateral knee - XR Knee Right 3 Views; Future - triamcinolone acetonide (Kenalog-40) injection 40 mg Arthritis Bilateral primary osteoarthritis of knee - Knee Joint Injection: bilateral knee - XR Knee Right 3 Views; Future - XR Knee Left 3 Views; Future - triamcinolone acetonide (Kenalog-40) injection 40 mg - triamcinolone acetonide (Kenalog-40) injection 40 mg -of bilateral knees causing significant joint space narrowing. Patient agreeable to bilat knee Xrs as she has not had this done in a couple years at least. Cosigned by Sun Spain MD at 09/02/2022 12:17 PM EST Associated attestation - Sun Spain MD - 09/02/2022 12:17 PM EST I saw and evaluated the patient with the resident/fellow. I discussed the case with the resident/fellow and agree with the findings and plan as documented. I was present for the entirety of the procedure(s). documented in this encounter Plan of Treatment Not on file documented as of this encounter Procedures Procedure Name Priority Date/Time Associated Diagnosis Comments MA ARTHROCENTESIS ASPIR&/INJ MAJOR JT/BURSA W/O US Routine 08/28/2022 9:20 AM EST Chronic pain of left knee Chronic pain of right knee Bilateral primary osteoarthritis of knee documented in this encounter Results * MA ARTHROCENTESIS ASPIR&/INJ MAJOR JT/BURSA W/O US (08/28/2022 9:20 AM EST) Narrative Sun Spain MD - 08/28/2022 9:20 AM EST Sun Spain MD ? 09/02/2022 12:17 PM Knee Joint Injection: bilateral knee Indications: pain and joint swelling Details: 22 G needle, anterolateral approach Medications (Right): (Lidocaine 1% 2mL Kenalog (40mg/mL): 1mL Lot: [id number] EXP: 02/2024 [facility]: [address]-8) Medications (Left): (Lidocaine 1% 2mL Kenalog (40mg/mL): 1mL Lot: [id number] EXP: 02/2024 [facility]: [address]-0) Outcome: tolerated well, no immediate complications Procedure, treatment alternatives, risks and benefits explained, specific risks discussed (Specific risks included flare reaction, increased pain, increased stiffness, injury to surrounding tissues, increased risk of infection, and risk of elevated glucose level.). Consent was given by the patient. Immediately prior to procedure a time out was called to verify the correct patient, procedure, equipment, client application support engineer and site/side marked as required. Patient was prepped and draped in the usual sterile fashion. Sun Spain MD IN CLINIC/BEDSIDE ORDERABLES F inal Result documented in this encounter Visit Diagnoses Diagnosis Chronic pain of left knee- Primary Chronic pain of right knee Arthritis Unspecified arthropathy, site unspecified Bilateral primary osteoarthritis of knee documented in this encounter Administered Medications Inactive Administered Medications - up to 3 most recent administrations Medication Order MAR Action Action Date Dose Rate Site triamcinolone acetonide (Kenalog-40) injection 40 mg 40 mg, Intra-articular, Once, 1 dose, On Mracia 08/28/22 at 1230, RoutineIndications:Chronic pain of left knee,Bilateral primary osteoarthritis of knee Given 08/28/2022 4:23 PM EST 40 mg Other triamcinolone acetonide (Kenalog-40) injection 40 mg 40 mg, Intra-articular, Once, 1 dose, On Marcia 08/28/22 at 1230, RoutineIndications:Chronic pain of right knee,Bilateral primary osteoarthritis of knee Given 08/28/2022 4:22 PM EST 40 mg Other documented in this encounter Additional Health Concerns Assessment Noted Time PHQ-9 Depression Total Score: 5 08/28/20 9:06 AM EST A fall risk assessment has been complete d for the patient 08/28/2022 9:06 AM EST documented as of this encounter Care Teams Venereal Disease Investigator Relationship Specialty Start Date End Date Neha Zhou APRN [address] [place] [address] PCP - General 02/22/21 documented as of this encounter
--- OUTSIDE RECORDS SUMMARY | 2024-09-27 11:12 | XMS_ITS | Encounter Summary ---
Author Organization Healthcare Address [address] [place] [address] Care Team Providers Care Microfilming Document Preparer Name Role Phone Neha Zhou DISPLAY ARTIST Primary Care Provider [phone] Reason for Visit * Reason Onset Date Comments Med Refill 04/04/2022 Encounter Details Date Type Department Care Team (Late st Contact Info) Description 04/04/2022 Refill [facility] [address] [place] [phone] Tony Hernandez LPN [facility] Social History Tobacco Use Types Packs/Day [...] documented as of this encounter Care Teams Microfilming Document Preparer Relationship Specialty Start Date End Date Neha Zhou APRN [address] [place] [phone] PCP - General 02/22/21 documented as of this encounter
--- OUTSIDE RECORDS SUMMARY | 2024-09-27 11:12 | XMS_ITS | Encounter Summary ---
Author Organization [facility] Address [address] [place] [address] Care Team Providers Care Professor Of Communication Arts Name Role Phone Neha Zhou APRN Primary Care Provider Reason for Referral * Consultation (Routine) - Closed Specialty Diagnoses / Procedures Referred By Lily carpenter Referred To Contact Gastroenterology Diagnoses Nausea Weight loss Hiatal hernia Gastroesophageal reflux disease, unspecified whether esophagitis present Diverticulitis Neha Zhou APRN [address] [phone] Phone: tel: fax: Referral ID Status Reason Start Date Expiration Date V isits Requested Visits Authorized [id number] Closed Specialty Services Required 12/21/2022 06/21/2024 1 1 Reason for Visit * Reason Comments Foot Injury Nausea Encounter Details Date Type Department Care Team (Late st Contact Info) Description 12/18/2022 1:40 PM EST Office Visit [facility] [address] [place] [address] Neha Zhou APRN [address] [phone] Other fatigue (Primary Dx); Nausea; Weight loss; Arthralgia of left foot; Essential (primary) hypertension; Chronic cough; Need for hepatitis C screening test; Hiatal hernia; Gastroesophageal reflux disease, unspecified whether esophagitis present; Diverticulitis; Epigastric pain; Lower abdominal pain; Sjogren's syndrome, with unspecified organ involvement (CMS/HCC); Gastroesophageal reflux disease without esophagitis; Gouty arthritis; Primary hypertension; Heel spur, unspecified laterality; Arthritis; Seasonal allergic rhinitis, unspecified trigger; Chronic pain of left knee; Chronic pain of right knee Social History Tobacco Use Types Packs/Day [...] place to sleep or slept in a alf (including now)? No 04/29/2022 Education Answer Date [...] Sign Reading Time Taken Comments Blood Pressure 130/84 12/18/2022 1:56 PM EST Pulse 84 12/18/2022 1:56 PM EST Temperature 36.4 ??C (97.6 ??F) 12/18/2022 1:56 PM ES T Respiratory Rate 18 12/18/2022 1:56 PM EST Oxygen Saturation 98% 12/18/2022 1:56 PM EST Inhaled Oxygen Concentration - - Weight 73 kg (161 lb) 12/18/2022 1:56 PM EST Height 157.5 cm (5' 2 ) 12/18/2022 1:56 PM EST Body Mass Index 29.45 12/18/2022 1:56 PM EST documented in this encounter Miscellaneous Notes * Clinician Note - French Headley LPN - 12/18/2022 1:40 PM EST The patient received dietary education because they have an above normal BMI. and The patient received exercise education because they have an above normal BMI. Body mass index is 29.45 kg/m??. * Patient Instructions - Neha Zhou APRN - 12/18/2022 1:40 PM EST reviewed diet exercise activity and nutrition; exercise one half hour day 5 days week; bmi less than 25. Labwork done [place] next week if no improvement * Progress Notes - Neha Zhou APRN - 12/18/2022 1:40 PM EST Subjective Patient ID: Tammy Wood is a 77 y.o. female. Here for check up Co abd pain recurrent since 12/02/22 Co nausea and upset stomach for several weeks Co tenderness mid epigastric area Eating lightly --crackers, etc Weight loss of 9# in less than 4 months Hx diverticulitis Co cramping left side lower abd--also co bloating Hiatal hernia--also mid epigastric pain Gerd Rheumatoid arthritis Sjogrens disease Osteoarthritis Co right heel pain and tenderness for past week--limping badly Cyndie knee pain--worse in left knee today--she has had cyndie knee injections--has been told by dr france in the past who recommended cyndie knee replacements Also co low back pain and cyndie hip pain Co fatigue and probs sleeping htn anxiety Lot of stress Had to have 14 year old dog put down earlier in month Allergic rhinitis No fever No cough No vom No diarrhea No rash Review of Systems Constitutional: Positive for fatigue. HENT: Positive for rhinorrhea. Gastrointestinal: Positive for abdominal pain and nausea. Hiatal hernia-mid epigastric pain Left abd pain cramping Musculoskeletal: Positive for arthralgias, back pain, gait problem, joint swelling and myalgias. Limping Psychiatric/Behavioral: Positive for sleep disturbance. The patient is nervous/anxious. All other systems reviewed and are negative. Objective Visit Vitals BP 130/84 (BP Location: Right arm, Patient Position: Sitting) Pulse 84 Temp 36.4 ??C (97.6 ??F) Ht 1.575 m (5' 2 ) Wt 73 kg (161 lb) SpO2 98% BMI 29.45 kg/m?? Physical Exam Vitals and nursing note reviewed. Constitutional: General: She is in acute distress. Appearance: Normal appearance. She is normal weight. Comments: limping HENT: Head: Normocephalic. Right Ear: Tympanic membrane normal. Left Ear: Tympanic membrane normal. Nose: Nose normal. Mouth/Throat: Mouth: Mucous [...] breath sounds. Abdominal: General: Abdomen is flat. Palpations: Abdomen is soft. Tenderness: There is abdominal tenderness. Hernia: A hernia is present. Comments: Hyperactive bowel sounds all 4 quadrants Tenderness on palpation left lower quadrant Also mid epigastric pain on palpation Neg psoas Neg obturator Neg heel jar Musculoskeletal: General: Swelling, tenderness and deformity present. Cervical back: Normal range of motion. Comments: Limping Rt foot--heel reddened and tender--hurts to put foot to the floor Arthritic changes of hands and fingers-rheumatoid arthritis Cyndie knee pain--swelling and crepitus; pos knee bulge; pos varus and valgus maneuvers Cyndie hip pain Low back pain w rad-dec rom Skin: General: Skin is warm and dry. Capillary Refill: Capillary refill takes less than 2 seconds. Neurological: General: No focal deficit present. Mental Status: She is alert and oriented to person, place, and time. Psychiatric: Behavior: Behavior normal. Thought Content: Thought content normal. Judgment: Judgment normal. Comments: Anxiety stress Assessment/Plan Diagnoses and all orders for this visit: Other fatigue - POCT SARS-CoV-2 COVID-19 Influenza A,B - CBC and differential - Thyroid Stimulating Hormone, Plasma; Future Nausea - POCT SARS-CoV-2 COVID-19 Influenza A,B - Ambulatory referral to Gastroenterology; Future Weight loss - POCT SARS-CoV-2 COVID-19 Influenza A,B - Ambulatory referral to Gastroenterology; Future Arthralgia of left foot - Sedimentation rate, automated - Uric acid Essential (primary) hypertension - Comprehensive metabolic panel Chronic cough - POCT SARS-CoV-2 COVID-19 Influenza A,B Need for hepatitis C screening test - Hepatitis C Antibody Hiatal hernia - Ambulatory referral to Gastroenterology; Future Gastroesophageal reflux disease, unspecified whether esophagitis present - Ambulatory referral to Gastroenterology; Future Diverticulitis - Ambulatory referral to Gastroenterology; Future Epigastric pain Lower abdominal pain Sjogren's syndrome, with unspecified organ involvement (CMS/HCC) Gastroesophageal reflux disease without esophagitis Gouty arthritis Primary hypertension Heel spur, unspecified laterality Arthritis Seasonal allergic rhinitis, unspecified trigger Chronic pain of left knee Chronic pain of right knee Other orders - cephalexin (Keflex) 500 MG capsule; Take 1 capsule (500 mg total) by mouth 2 (two) times a day for 7 days. - pantoprazole (Protonix) 40 MG EC tablet; Take 1 tablet (40 mg total) by mouth 1 (one) time each day. Do not crush, chew, or split. - loratadine (Claritin) 10 MG tablet; Take 1 tablet (10 mg total) by mouth 1 (one) time each day. documented in this encounter Plan of Treatment Scheduled Referrals Name Type Priority Associated Diagnoses Order Schedule Ambulatory referral to Gastroenterology Outpatient Referral Routine Nausea Weight loss Hiatal hernia Gastroesophageal reflux disease, unspecified whether esophagitis present Diverticulitis Expected: 12/21/2022 (Approximate), Expires: 06/23/2024 documented as of this encounter Procedures Procedure Name Priority Date/Time Associated Diagnosis Comments POCT SARS COV2 COVID 19/INFLUENZA A,B Routine 12/18/2022 3:16 PM EST Other fatigue Nausea Weight loss Chronic cough HEPATITIS C ANTIBODY W/REFLEX TO HCV QUANT PCR Routine 12/18/2022 2:47 PM EST Need for hepatitis C screening test SEDIMENTATION RATE, AUTOMATED Routine 12/18/2022 2:47 PM EST Arthralgia of left foot CBC WITH AUTO DIFFERENTIAL Routine 12/18/2022 2:47 PM EST Other fatigue URIC ACID, PLASMA Routine 12/18/2022 2:4 7 PM EST Arthralgia of left foot TSH Routine 12/18/2022 2:47 PM EST Other fatigue COMPREHENSIVE METABOLIC PANEL, PLASMA Routine 12/18/2022 2:47 PM EST Essential (primary) hypertension documented in this encounter Results * POCT SARS-CoV-2 COVID-19 Influenza A,B (12/18/2022 3:16 PM EST) Pathologist [facility] POCT Influenza A PCR Not Detected Not Detected POCT Influenza B PCR Not Detected Not Detected POCT COVID 19 PCR Not Detected Not Detected POCT COVID/Flu A,B Kit Lot [id number] POCT COVID/FLU A,B Kit Expiration 05/11/2023 Nasopharyngeal Swab Nasopharyngeal structure / Unknown 12/18/2022 3:16 PM EST Neha Zhou MATE FOURTH POINT OF CARE TEST ENTER/CORY T ORDERABLES Final Result * Hepatitis C Antibody (12/18/2022 2:47 PM EST) [facility] Hepatitis C Antibody Negative Negative 12/18/2022 7:58 PM EST [facility] Blood Venous blood specimen / Unknown Venipuncture / Unknown 12/18/2022 2:47 PM EST 12/18/2022 2:47 PM EST Neha Zhou MATE FOURTH LAB BLOOD ORDERABLES Final R esult [facility] [address] [place] [address] * Uric acid (12/18/2022 2:47 PM EST) [facility] Uric Acid, Plasma 3.8 3.5 - 7.3 mg/dL 12/18/2022 7:49 PM EST HEALTHCARE LAB Blood Venous blood specimen / Unknown Venipuncture / Unknown 12/18/2022 2:47 PM EST 12/18/2022 2:47 PM EST Result [facility] Neha Mckay WinnieHenry [facility] B[facility] ORDERABLES Final R esult Performing Organization Address City/[facility]/ZIP Co de Phone Number [facility]ALTHCARE [facility] [address] [place] [address] * Sedimentation rate, automated (12/18/2022 2:47 PM EST) Sedimentation Rate 25 <30 mm/hr 2022 7:39 PM EST [facility] Blood Venous blood specimen / Unknown Venipuncture / Unknown 12/18/2022 2:47 PM EST 12/18/2022 2:47 PM EST Result [facility] Neha Mckay WinnieHenry [facility] B[facility]OD ORDERABLES Final R ult Performing Organization Address City/[facility] Co de Phone Number [facility] [address] [place] [address] * Thyroid Stimulating Hormone, Plasma (12/18/2022 2:47 PM EST) Pathologist [facility] Thyroid Stimulating Hormone, Plasma 0.74 0.40 - 4.20 uIU/mL 12/18/2022 7:49 PM EST [facility] Blood Venous blood specimen / Unknown Venipuncture / Unknown 12/18/2022 2:47 PM EST 12/18/2022 2:47 PM EST Result [facility] BLOOD ORDERABLES Final R esult Performing Organization Address City/[facility]/ZIP Co de Phone Number [facility] [address] [place] [address] * (ABNORMAL) Comprehensive metabolic panel (12/18/2022 2:47 PM EST) Glucose, Plasma 105(H) 74 - 99 mg/dL 12/18/2022 7:49 PM EST [facility] BUN, Plasma 14 8 - 23 mg/dL 12/18/2022 7:49 PM EST [facility] Creatinine, Plasma 0.83 0.60 - 1.10 mg/dL 12/18/2022 7:49 PM [facility] BUN/Creatinine Ratio 17 12/18/2022 7:49 PM [facility] Sodium, Plasma 135(L) 136 - 145 mmol/L 12/18/2022 7:49 PM [facility] Potassium, Plasma 5.0(H) 3.7 - 4.8 mmol/L 12/18/2022 7:49 PM [facility] Chloride, Plasma 98 97 - 107 mmol/L 12/18/2022 7:49 PM [facility] CO2, Plasma 25 22 - 29 mmol/L 12/18/2022 7:49 PM [facility] Anion Gap 12 6 - 16 mmol/L 12/18/2022 7:49 PM [facility] Total Calcium, Plasma 9.4 8.9 - 10.2 mg/dL 12/18/2022 7:49 PM [facility] Total Protein 7.3 6.3 - 7.9 g/dL 12/18/2022 7:49 PM [facility] Albumin, Plasma 4.5 3.5 - 5.2 g/dL 12/18/2022 7:49 PM [facility] AST, Plasma 17 9 - 36 U/L 12/18/2022 7:49 PM [facility] ALT, Plasma 11 8 - 33 U/L 12/18/2022 7:49 PM [facility] Alkaline Phosphatase, Plasma 81 46 - 142 U/L 12/18/2022 7:49 PM [facility] Total Bilirubin, Plasma 0.7 0.2 - 1.1 mg/dL 12/18/2022 7:49 PM [facility] eGFRcr 72.7 mL/min/1.7 3m*2 12/18/2022 7:49 PM [facility] Comment: Reported eGFRcr in mL/min/1.73m2 is based the CKD-EPI 2021 equation that does not use a race coefficient. Effective 05/07/22 our laboratory changed the eGFR calculation to the CKD-EPI 2021 equation from the previously reported eGFR, based on the MDRD equation. ??For comparisons between the two equations, please see laboratory website: ??[email or web address] Blood Venous blood specimen / Unknown Venipuncture / Unknown 12/18/2022 2:47 PM EST 12/18/2022 2:47 PM EST us Neha Zhou MATE FOURTH LAB BLOOD ORDERABLES Final R esult [facility] [address] [place] [address] * CBC and differential (12/18/2022 2:47 PM EST) WBC Count 4.57 3.70 - 10.30 10*3/uL LAB HEMATOLOGY METHOD 12/18/2022 7:25 PM EST [facility] RBC Count 4.59 3.90 - 5.20 10*6/uL LAB HEMATOLOGY METHOD 12/18/2022 7:25 PM EST [facility] HGB 13.8 11.2 - 15.7 g/dL LAB HEMATOLOGY METHOD 12/18/2022 7:25 PM EST [facility] HCT 42.4 34.0 - 45.0 % LAB HEMATOLOGY METHOD 12/18/2022 7:25 PM EST [facility] Platelet Count 223 155 - 369 10*3/uL LAB HEMATOLOGY METHOD 12/18/2022 7:25 PM EST [facility] MCV 92 79 - 98 fL LAB HEMATOLOGY METHOD 12/18/2022 7:25 PM EST [facility] MCH 30.1 26.0 - 32.0 pg LAB HEMATOLOGY METHOD 12/18/2022 7:25 PM EST [facility] MCHC 32.5 30.7 - 35.5 g/dL LAB HEMATOLOGY METHOD 12/18/2022 7:25 PM EST [facility] RDW 12.9 11.5 - 14.5 % LAB HEMATOLOGY METHOD 12/18/2022 7:25 PM EST [facility] MPV 10.0 8.8 - 12.5 fL LAB HEMATOLOGY METHOD 12/18/2022 7:25 PM EST [facility] nRBC 0.0 <=0.0 per 100 WBCs LAB HEMATOLOGY METHOD 12/18/2022 7:25 PM EST [facility] Differential Type Automated LAB HEMATOLOGY METHOD 12/18/2022 7:25 PM EST [facility] Neutrophils % 54.0 % LAB HEMATOLOGY METHOD 12/18/2022 7:25 PM EST [facility] Lymphocytes % 33.0 % LAB HEMATOLOGY METHOD 12/18/2022 7:25 PM EST [facility]ALTHCARE LAB Monocytes % 12.0 % LAB HEMATOLOGY METHOD 12/18/2022 7:25 PM EST [facility] Eosinophils % 1.0 % LAB HEMATOLOGY METHOD 12/18/2022 7:25 PM EST [facility] Basophils % 0.0 % LAB HEMATOLOGY METHOD 12/18/2022 7:25 PM EST [facility] Immature Granulocytes % 0.0 % LAB HEMATOLOGY METHOD 12/18/2022 7:25 PM EST [facility]ALTH[facility]ARE LAB Neutrophils Absolute 2.43 1.60 - 6.10 10*3/uL LAB HEMATOLOGY METHOD 12/18/2022 7:25 PM EST [facility] Lymphocytes Absolute 1.52 1.20 - 3.90 10*3/uL LAB HEMATOLOGY METHOD 12/18/2022 7:25 PM EST [facility] Monocytes Absolute 0.55 0.30 - 0.90 10*3/uL LAB HEMATOLOGY METHOD 12/18/2022 7:25 PM EST [facility] Eosinophils Absolute 0.04 0.00 - 0.50 10*3/uL LAB HEMATOLOGY METHOD 12/18/2022 7:25 PM EST [facility] Basophils Absolute 0.02 0.00 - 0.10 10*3/uL LAB HEMATOLOGY METHOD 12/18/2022 7:25 PM EST [facility] Immature Granulocytes Absolute 0.01 0.00 - 0.06 10*3/uL LAB HEMATOLOGY METHOD 12/18/2022 7:25 PM EST [facility] Blood Venous blood specimen / Unknown Venipuncture / Unknown 12/18/2022 2:47 PM EST 12/18/2022 2:47 PM EST Narrative [facility] - 12/18/2022 7:25 PM EST Therapeutic decision making should be based on absolute values, rather than percentages. us Neha Zhou MATE FOURTH LAB BLOOD ORDERABLES Final R esult [facility] [address] [place] [address] documented in this encounter Visit Diagnoses Diagnosis Other fatigue- Primary Nausea Nausea alone Weight loss Loss of weight Arthralgia of left foot Essential (primary) hypertension Unspecified essential hypertension Chronic cough Cough Need for hepatitis C screening test Special screening examination for other specified viral diseases Hiatal hernia Diaphragmatic hernia without mention of obstruction or gangrene Gastroesophageal reflux disease, unspecified whether esophagitis present Diverticulitis Diverticulitis of colon (without mention of hemorrhage) Epigastric pain Abdominal pain, epigastric Lower abdominal pain Abdominal pain, other specified site Sjogren's syndrome, with unspecified organ involvement (CMS/HCC) Gastroesophageal reflux disease without esophagitis Esophageal reflux Gouty arthritis Gouty arthropathy, unspecified Primary hypertension Unspecified essential hypertension Heel spur, unspecified laterality Arthritis Unspecified arthropathy, site unspecified Seasonal allergic rhinitis, unspecified trigger Chronic pain of left knee Chronic pain of right knee documented in this encounter Additional Health Concerns Assessment Noted Time PHQ-9 Depression Total Score: 6 12/19/19 23 2:02 PM EST A fall risk assessment has been complete d for the patient 12/18/2022 2:02 PM EST A Body Mass Index follow-up plan has been documented for the patient 12/18/2022 2:59 PM EST documented as of this encounter Care Teams Professor Of Communication Arts Relationship Specialty Start Date End Date Neha Zhou APRN [address] [place] [phone] PCP - General 02/22/21 documented as of this encounter
--- OUTSIDE RECORDS SUMMARY | 2024-09-27 11:13 | XMS_ITS | Encounter Summary ---
Author Organization Healthcare Address [address] [place] [address] Care Team Providers Care Outreach Analyst Name Role Phone Neha Zhou GANG MINER Primary Care Provider Reason for Visit * Reason Onset Date Comments lab result 06/13/2021 Encounter Details Date Type Department Care Team (Late st Contact Info) Description 06/13/2021 Telephone [facility] [address] [phone] Samantha Medeiros LPN [facility] lab result Social History Tobacco Use Types Packs/Day Years [...] Date Recorded Patient Health Questionnaire-2 Score 0 06/12/2021 Hunger Vital Sign Answer Date Recorded Within the past 12 months, y ou worried that your food would run out before you got the money to buy more. Never true 06/03/20 21 Within the past 12 months, t he food you bought just didn't last and you didn't have money to get more. Never true 06/03/2021 Education Answer Date Recorded What is the highest level of school you have completed or the highest degree you have received? 12th grade 06/03/2021 Comments Unknown Sex and Gender Information Value Date Recorded Sex Assigned at Female 06/03/2021 11:08 AM EDT Legal Sex Female 7:34 PM EDT Gender Identity Female 06/03/2021 11:08 AM EDT Sexual Orientation Straight 06/03/2021 11 :08 AM EDT Occupation Industry Job Start Date Job End Date retired Not on file Not on file Not on file COVID-19 Exposure Response Date Recorded In the last month, have you been in contact with someone who was confirmed or suspected to have Coronavirus / COVID-19? Unable to assess 06/12/2021 11:27 AM EDT documented as of this encounter Miscellaneous Notes * Telephone Encounter - Samantha Medeiros LPN - 06/13/2021 4:01 PM EDT Lab results given documented in this encounter Plan of Treatment Not on file documented as of this encounter Visit Diagnoses Not on filedocumented in this encounter Additional Health Concerns Infection Onset Date Last Indicated Resolved Time COVID-19 Rule-Out 06/12/2021 06/12/2021 06/13/2021 3:39 AM EDT Assessment Noted Time PHQ-9 Depression Total Score: 2 06/12/20 21 1:15 PM EDT A fall risk assessment has been complete d for the patient 06/12/2021 1:18 PM EDT documented as of this encounter Care Teams Outreach Analyst Relationship Specialty Start Date End Date Neha Zhou, AMMON [address] [place] [phone] PCP - General 02/22/21 documented as of this encounter
--- OUTSIDE RECORDS SUMMARY | 2024-09-27 11:13 | XMS_ITS | Encounter Summary ---
Author Organization Healthcare Address [address] [place] [address] Care Team Providers Care Continuous Conveyor Screen Drier Name Role Phone Neha Zhou QUALITY MEASUREMENT SPECIALIST Primary Care Provider Reason for Visit * Reason Onset Date Comments Med Refill 12/23/2021 Encounter Details Date Type Department Care Team (Late st Contact Info) Description 12/23/2021 Refill [facility] [address] [phone] Samantha Medeiros LPN [facility] MD [facility] Social History [...] Date Recorded Patient Health Questionnaire-2 Score 0 12/19/2021 Hunger Vital Sign Answer Date Recorded Within [...] Noted Time PHQ-9 Depression Total Score: 3 12/20/19 10:12 AM EST A fall risk assessment has been complete d for the patient 12/19/2021 10:14 AM EST documented as of this encounter Care Teams Continuous Conveyor Screen Drier Relationship Specialty Start Date End Date Neha Zhou APRN [address] [place] [phone] PCP - General 02/22/21 documented as of this encounter
--- OUTSIDE RECORDS SUMMARY | 2024-09-27 11:13 | XMS_ITS | Encounter Summary ---
Author Organization Healthcare Address [address] [place] [id number] Care Team Providers Care Stone Setter Apprentice Name Role Phone Neha Zhou AMMON Primary Care Provider Encounter Details Date Type Department Care Team (Latest Contact Info) Description 03/26/2022 Travel Social History Tobacco Use Types Packs/Day [...] documented as of this encounter Care Teams Stone Setter Apprentice Relationship Specialty Start Date End Date Neha Zhou APRN [address] [place] [phone] PCP - General 02/22/21 documented as of this encounter
--- OUTSIDE RECORDS SUMMARY | 2024-09-27 11:13 | XMS_ITS | Encounter Summary ---
Author Organization Healthcare Address [address] [place] [address] Care Team Providers Care Merchandise Clerk Name Role Phone Neha Zhou AMMON Primary Care Provider Reason for Visit * Reason Comments Sore Throat Generalized Body Aches Sinusitis Encounter Details Date Type Department Care Team (Late st Contact Info) Description 06/03/2021 1:40 PM EDT Office Visit [facility] [address] [place] [phone] Shayna Pittman, DO [address] [place] [address] Sore throat (Primary Dx); Acute non intractable tension-type headache; Acute sinusitis, recurrence not specified, unspecified location Social History Tobacco Use Types Packs/Day Years [...] Date Recorded Patient Health Questionnaire-2 Score 0 06/03/2021 Hunger Vital Sign Answer Date Recorded Within [...] have Coronavirus / COVID-19? Unable to assess 06/03/2021 1:42 PM EDT documented as of this encounter Miscellaneous Notes * Progress Notes - Licha Goode LPN - 06/03/2021 1:40 PM EDT The patient received dietary education because they have an above normal BMI. * Progress Notes - Shayna Pittman DO - 06/03/2021 1:40 PM EDT Telehealth Visit Subjective Patient ID: Tammy Wood is a 76 y.o. female. Chief Complaint Patient presents with ??? Sore Throat ??? Generalized Body Aches ??? Sinusitis Patient is a pleasant 76-year-old female who presents today for sick visit. Patient states on 05/30/2021 she began to develop sore throat, headache, and red eyes. Patient states she has alsohad facial pain and sinus pressure since this time. Patient describes a sore throat as a ???raw feel ing?? . Patient states she has history of allergic rhinitis has been taking home Claritin and Flonase with little relief. Patient also admits to loss of taste and smell, and diarrhea, watery eyes, dry nose, and postnasal drip. Patient denies any fever, chills, shortness of air, nausea, vomiting, orrunny nose. Patient denies any known sick contacts, or COVID-19 exposure. Patient states that she has received COVID-19 vaccine. Patient states that she will have an episode similar to this yearly, and states that it generally improves with Keflex prescription. The following portions of the chart were reviewed this encounter and updated as appropriate: Tobacco Allergies Meds Problems Med Hx Surg Hx Fam Hx Review of Systems Constitutional: Negative for chills, fatigue and fever. HENT: Positive for postnasal drip, sinus pressure, sinus pain and sore throat. Negative for ear pain and facial swelling. Eyes: Positive for redness and itching. Negative for discharge. Respiratory: Negative for cough, shortness of breath and wheezing. Cardiovascular: Negative for chest pain, palpitations and leg swelling. Gastrointestinal: Positive for diarrhea. Negative for abdominal pain, constipation, nausea and vomiting. Musculoskeletal: Negative for myalgias. Neurological: Positive for headaches. Objective Physical Exam Constitutional: General: She is not in acute distress. Appearance: Normal appearance. Pulmonary: Effort: Pulmonary effort is normal. No respiratory distress. Skin: General: Skin is warm. Coloration: Skin is not jaundiced or pale. Neurological: Mental Status: She is alert. Psychiatric: Mood and Affect: Mood normal. Behavior: Behavior normal. Assessment/Plan Diagnoses and all orders for this visit: Sore throat - POCT Strep A PCR Acute non intractable tension-type headache - SARS CoV-2/COVID-19 by PCR; Future - cephalexin (Keflex) 500 MG capsule; Take 1 capsule (500 mg total) by mouth 2 (two) times a day for 7 days. Acute sinusitis, recurrence not specified, unspecified location -COVID-19 testing negative -Strep testing negative -Discussed with patient that she and any COVID- 19 unvaccinated household members should quarantineuntil COVID testing results available. Telehealth Statement Patient Verification Patient identity has been confirmed using name and date of ? Yes Authorizations and Agreements/Telemedicine Consent sent and consent confirmed? Yes Patient Location: clinic parking lot Patient confirms they are physically located in [place]? Yes If the patient is not physically located in [place], the provider has confirmed with Legal thatthe provider is authorized to provide services in patient's stated location? Yes Provider Location: HealthCare Facility Audio and video or audio only? Audio and video Total visit time: 24 minutes Cosigned by Stevie Headley DO at 06/07/2021 8:18 AM EDT Associated attestation - Stevie Headley DO - 06/07/2021 8:18 AM EDT I reviewed with the resident the [...] Diagnosis Comments POCT STREP A PCR Routine 06/03/2021 3:29 PM EDT Sore throat SARS COV-2/COVID-19 BY PCR Routine 06/03/2021 2:48 PM EDT Acute non intractable tension-type headache documented in this encounter Results * POCT Strep A PCR (06/03/2021 3:29 PM EDT) POCT Strep A PCR Negative for Strep A Negative for Strep A Kit Lot Number [id number] Kit Expiration Date 07/11/2022 Swab Structure of anterior portion of neck / Unknown 06/03/2021 3:29 PM EDT us Shayna Pittman DO POINT OF CARE TEST ENTER/ED IT ORDERABLES Final Result * SARS CoV-2/COVID-19 by PCR (06/03/2021 2:48 PM EDT) SARS CoV-2/COVID-1 9 RNA PCR Result Not Detected Not Detected 06/04/2021 3:13 AM EDT [facility] Swab Nasopharyngeal structure / Unknown Non-blood Collection / Unknown 06/03/2021 2:48 PM EDT 06/03/2021 2:48 PM EDT Narrative [facility] - 06/04/2021 3:13 AM EDT This assay is for in vitro diagnostic use under FDA emergency use authorization only. Negative results do not preclude infection with the SARS CoV-2 virus and should not be the sole basis of a patient treatment/management or public health decision. Follow up testing should be performed according to the current CDC recommendations. This test was performed using the Percept[employer]Med Alinity m SARS CoV-2 assay, a PCR-based method. The limit of detection (LoD) for this assay is 100 copies/mL. Use of Alinity m SARS CoV-2 assay in an asymptomatic screening population is intended to be used as part of an infection control plan, that may include additional preventative measures such a predefined serial testing plan or directed testing of high-risk individuals. Negative results should be considered presumptive and do not preclude current or future infection obtained through community transmission or other exposures. Negative results must be considered in the context of an individual's recent exposures, history, presence of clinical signs and symptoms consistent with COVID-19. us Shayna Pittman DO LAB MICROBIOLOGY - GENERAL ORDERABLES Final Result [facility] [address] [place] [address] documented in this encounter Visit Diagnoses Diagnosis Sore throat- Primary Acute pharyngitis Acute non intractable tension-type headache Acute sinusitis, recurrence not specified, unspecified location documented in this encounter Additional Health Concerns Infection Onset Date Last Indicated Resolved Time COVID-19 Rule-Out 06/03/2021 06/03/2021 06/04/2021 3:13 AM EDT Assessment Noted Time PHQ-9 Depression Total Score: 0 06/03/20 1:47 PM EDT A fall risk assessment has been complete d for the patient 06/03/2021 1:49 PM EDT documented as of this encounter Care Teams Merchandise Clerk Relationship Specialty Start Date End Date Neha Zhou, AMMON [address] [place] [address] PCP - General 02/22/21 documented as of this encounter
--- OUTSIDE RECORDS SUMMARY | 2024-09-27 11:13 | XMS_ITS | Encounter Summary ---
Author Organization [facility] Address [address] [place] [address] Care Team Providers Care Ammonia Worker Name Role Phone Neha Zhou AMMON Primary Care Provider Reason for Visit * Reason Comments Sinus Problem Sore Throat Migraine Encounter Details Date Type Department Care Team (Late st Contact Info) Description 12/19/2021 10:00 AM EST Office Visit [facility] [address] [place] [phone] Tawana Akers MD [address] [place] [id number] Seasonal allergic rhinitis, unspecified trigger (Primary Dx); Sore throat; Sinus congestion; Cough Social History Tobacco Use Types Packs/Day Years [...] Sign Reading Time Taken Comments Blood Pressure 150/86 12/19/2021 10:09 AM EST Pulse 120 12/19/2021 10:09 AM EST Temperature 36.7 ??C (98.1 ??F) 12/19/2021 10:[address] Respiratory Rate 16 12/19/2021 10:09 AM EST Oxygen Saturation 99% 12/19/2021 10:09 AM EST Inhaled Oxygen Concentration - - Weight - - Height - - Body Mass Index - - documented in this encounter Miscellaneous Notes * Progress Notes - Tawana Akers MD - 12/19/2021 10:00 AM EST Subjective Tammy Wood is a 76 y.o. female who presents via telehealth for continued evaluation and treatment of allergic symptoms including chronic drainage and congestion. Patient seen last week via virtual visit with Dr. Garcia with same symptoms. Was prescribed singulair to address allergic rhinitis, however patient never started this medications after she read about the side effects. Patient was COVID/Flu/Strep negative at this time. MD allison not to retest patient as symptoms unchanged, recent negative test, and no change in symptoms,however patient swabbed prior to seeing physician. Symptoms include: clear rhinorrhea, cough, headaches, itchy eyes, nasal congestion, postnasal drip,sinus pressure, watery eyes and sore throat and are present in a seasonal pattern. Denies fever, chills, cough, SOB, CP, nausea, vomiting, diarrhea, constipation. Treatment currently includes claritin. Patient states she no longer uses flonase as this makes her sometimes feel sick. Did not attempt singulair as above. The following portions of the chart were reviewed this encounter and updated as appropriate: Tobacco Allergies Meds Med Hx Surg Hx Fam Hx Review of Systems Pertinent items are noted in HPI. Objective Physical Exam Constitutional: General: She is not in acute distress. Appearance: Normal appearance. Comments: Limited 2/2 virtual visit HENT: Head: Normocephalic and atraumatic. Nose: Nose normal. Eyes: Extraocular Movements: Extraocular movements intact. Pulmonary: Effort: No respiratory distress. Comments: No audible wheezes appreciated during virtual visit Neurological: Mental Status: She is alert and oriented to person, place, and time. Mental status is at baseline. Psychiatric: Mood and Affect: Mood normal. Behavior: Behavior normal. Assessment/Plan Allergic rhinitis. Problem List Items Addressed This Visit Respiratory Seasonal allergic rhinitis - Primary Relevant Medications fexofenadine-pseudoephedrine ER (Geovanna-D 24) 180-240 MG 24 hr tablet phenol (Chloraseptic) 1.4 % liquid olopatadine (Patanol) 0.1 % ophthalmic solution Other Visit Diagnoses Sore throat Relevant Orders POCT Strep A PCR (Completed) SARS CoV-2/COVID-19 by PCR (Completed) POCT Flu A/B RSV PCR (Completed) Sinus congestion Relevant Orders POCT Strep A PCR (Completed) SARS CoV-2/COVID-19 by PCR (Completed) POCT Flu A/B RSV PCR (Completed) Cough Relevant Orders SARS CoV-2/COVID-19 by PCR (Completed) POCT Flu A/B RSV PCR (Completed) Medications: oral decongestant/antihistamine: Geovanna-D, eye drops: Patanol, and chloraseptic spray. Allergen avoidance discussed. Supportive OTC treatment discussed Discussed importance of avoiding unnecessary use of antibiotics as patient without signs of acute bacterial infection. Repeat COVID/Flu/Strep negative 12/19. Unchanged symptoms and presentation remainconsistent with allergic rhinitis as previous visit. Patient endorsed understanding and in agreement with plan. Follow-up with PCP in 4 weeks. Tawana Akers MD Cosigned by Mandy Kee DO at 12/25/2021 8:24 AM EDT Associated attestation - Mandy Kee DO - 12/25/2021 8:24 AM EDT I reviewed with the resident [...] Diagnosis Comments POCT STREP A PCR Routine 12/19/2021 11:3 6 AM EST Sore throat Sinus congestion SARS COV-2/COVID-19 BY PCR Routine 12/19/2021 11:36 AM EST Sore throat Sinus congestion Cough POCT INFLUENZA A/B RSV PCR Routine 12/19/2021 11:36 AM EST Sore throat Sinus congestion Cough documented in this encounter Results * POCT Flu A/B RSV PCR (12/19/2021 11:36 AM EST) POCT Influenza A PCR Not Detected Not Detected POCT Influenza B PCR Not Detected Not Detected POCT RSV PCR Not Detected Not Detected Test Strip Lot Number [id number] Test Strip Lot Expiration 05/11/2022 Swab 12/19/2021 11:3 6 AM EST Mandy Kee DO POINT OF CARE TEST ENTER/ED IT ORDERABLES Final Result * SARS CoV-2/COVID-19 by PCR (12/19/2021 11:36 AM EST) SARS CoV-2/COVID-1 9 RNA PCR Result Not Detected Not Detected 12/19/2021 10:08 PM EST [facility] Swab Nasopharyngeal structure / Unknown Non-blood Collection / Unknown 12/19/2021 11:36 AM EST 12/19/2021 11:36 AM EST Narrative [facility] - 12/19/2021 10:08 PM EST This assay is for in vitro diagnostic use under FDA emergency use authorization only. Negative results do not preclude infection with the SARS CoV-2 virus and should not be the sole basis of a patient treatment/management or public health decision. Follow up testing should be performed according to the current CDC recommendations. This test was performed using the webtide Alinity m SARS CoV-2 assay, a PCR-based [...] clinical signs and symptoms consistent with COVID-19. Mandy Kee DO LAB MICROBIOLOGY - GENERAL ORDERABLES Final Result Performing Organization Address City/State/[facility] Co de Phone Number [facility] [address] [place] [address] * POCT Strep A PCR (12/19/2021 11:36 AM EST) POCT Strep A PCR Not Detected Not Detected Kit Lot Number [id number] Kit Expiration Date 08/11/2022 Swab Structure of anterior portion of neck / Unknown 12/19/2021 11:36 AM EST Mandy Kee DO POINT OF CARE TEST ENTER/ED IT ORDERABLES Final Result documented in this encounter Visit Diagnoses Diagnosis Seasonal allergic rhinitis, unspecified trigger- Primary Sore throat Acute pharyngitis Sinus congestion Other diseases of nasal cavity and sinuses Cough documented in this encounter Additional Health Concerns Assessment Noted Time PHQ-9 Depression Total Score: 3 12/20/19 22 10:12 AM EST A fall risk assessment has been complete d for the patient 12/19/2021 10:14 AM EST documented as of this encounter Care Teams Ammonia Worker Relationship Specialty Start Date End Date Neha Zhou APRN [address] [place] [address] PCP - General 02/22/21 documented as of this encounter
--- OUTSIDE RECORDS SUMMARY | 2024-09-27 11:13 | XMS_ITS | Encounter Summary ---
Author Organization Healthcare Address [address] [place] [address] Care Team Providers Care Ship Engines Operating Engineer Name Role Phone Neha Zhou AMMON Primary Care Provider Encounter Details Date Type Department Care Team (Late st Contact Info) Description 03/04/2022 Orders Only [facility] [address] [place] [phone] [place] Cough; Exposure to COVID-19 virus Social History Tobacco Use Types Packs/Day Years [...] Date Recorded Patient Health Questionnaire-2 Score 0 02/27/2022 Hunger Vital Sign Answer Date Recorded Within [...] suspected to have Coronavirus/COVID-19? No / Unsure 02/27/2022 3:00 PM EDT documented as of this encounter Plan of Treatment Not on file documented as of this encounter Visit Diagnoses Diagnosis Cough Exposure to COVID-19 virus documented in this encounter Additional Health Concerns Infection Onset Date Last Indicated Resolved Time COVID 19 (Confirmed) Comment:[facility] has attempted to contact pt in regards to positive Covid testing. No VM option. Time(s) Called: 1237 and 1503 EPI PUI/Report Sent: no Certified Letter Sent: yes IPA Geodetic Advisor: Aiyana 02/18/2022 02/18/2022 03/11/2022 5:23 AM E DT Assessment Noted Time PHQ-9 Depression Total Score: 3 02/28/20 22 3:07 PM EDT A fall risk assessment has been complete d for the patient 02/27/2022 3:08 PM EDT documented as of this encounter Care Teams Ship Engines Operating Engineer Relationship Specialty Start Date End Date Neha Zhou APRN [address] [place] [address] PCP - General 02/22/21 documented as of this encounter
--- OUTSIDE RECORDS SUMMARY | 2024-09-27 11:13 | XMS_ITS | Encounter Summary ---
Author Organization Healthcare Address [address] [place] [address] Care Team Providers Care Tail Dogger Name Role Phone Neha Zhou AMMON Primary Care Provider Encounter Details Date Type Department Care Team (Latest Contact Info) Description 08/07/2021 2:15 PM EDT Clinical Support [facility] [address] [place] [phone] Needs flu shot (Primary Dx) Social History Tobacco Use Types [...] or suspected to have Coronavirus / COVID-19? No / Unsure 08/07/2021 2:01 PM EDT documented as of this encounter Miscellaneous Notes * Progress Notes - Samantha Medeiros LPN - 08/07/2021 2:15 PM EDT Flu shot given left arm documented in this encounter Plan of Treatment Not on file documented as of this encounter Visit Diagnoses Diagnosis Needs flu shot- Primary Need for prophylactic vaccination and inoculation against influenza documented in this encounter Additional Health Concerns Assessment Noted Time PHQ-9 Depression Total Score: 2 06/12/20 21 1:15 PM EDT A fall risk assessment has been complete d for the patient 06/12/2021 1:18 PM EDT documented as of this encounter Care Teams Tail Dogger Relationship Specialty Start Date End Date Neha Zhou APRN [address] [place] [address] PCP - General 02/22/21 documented as of this encounter
--- OUTSIDE RECORDS SUMMARY | 2024-09-27 11:13 | XMS_ITS | Encounter Summary ---
Author Organization Healthcare Address [address] [place] [id number] Care Team Providers Care Petrol Tanker Driver Name Role Phone Neha Zhou AMMON Primary Care Provider Encounter Details Date Type Department Care Team (Latest Contact Info) Description 06/12/2021 Travel Social History Tobacco Use Types Packs/Day [...] money to buy more. Never true 06/03/20 Within the past 12 months, t he [...] Time PHQ-9 Depression Total Score: 2 06/12/20 1:15 PM EDT A fall risk assessment has been complete d for the patient 06/12/2021 1:18 PM EDT documented as of this encounter Care Teams Petrol Tanker Driver Relationship Specialty Start Date End Date Neha Zhou APRN [address] [place] [address] PCP - General 02/22/21 documented as of this encounter
--- OUTSIDE RECORDS SUMMARY | 2024-09-27 11:13 | XMS_ITS | Encounter Summary ---
Author Organization Healthcare Address [address] [place] [address] Care Team Providers Care Sleeping Car Porter Name Role Phone Neha Zhou AMMON Primary Care Provider [phone] Reason for Visit * Reason Comments Immunizations covid vaccine given Encounter Details Date Type Department Care Team (Late st Contact Info) Description 09/09/2021 2:15 PM EST Clinical Support [facility] [address] [place] [phone] Social History Tobacco Use Types Packs/Day Years [...] have Coronavirus / COVID-19? No / Unsure 09/09/2021 2:06 PM EST documented as of this encounter Miscellaneous Notes * Progress Notes - Tony Hernandez LPN - 09/09/2021 2:15 PM EST Booster dose Covid vaccine given Moderna. documented in this encounter Plan of Treatment Not on file documented as of this encounter Visit Diagnoses Not on filedocumented in this encounter Additional Health Concerns Assessment Noted Time PHQ-9 Depression Total Score: 2 06/12/20 21 1:15 PM EDT A fall risk assessment has been complete d for the patient 06/12/2021 1:18 PM EDT documented as of this encounter Care Teams Sleeping Car Porter Relationship Specialty Start Date End Date Neha Zhou APRN [address] [place] [phone] PCP - General 02/22/21 documented as of this encounter
--- OUTSIDE RECORDS SUMMARY | 2024-09-27 11:13 | XMS_ITS | Encounter Summary ---
Author Organization Healthcare Address [address] [id number] Care Team Providers Care Ceramic Artist Name Role Phone Neha Zhou AMMON Primary Care Provider [phone] Reason for Visit * Reason Comments Nasal Congestion itchy watery eyes, n ausea, faituge, cough (mild). Symptoms first started a week ago Fatigue Encounter Details Date Type Department Care Team (Late st Contact Info) Description 12/11/2021 2:00 PM EST Office Visit [facility] [address] [place] [phone] Estephania Garcia MD [address] [place] [address] Cough (Primary Dx) Social History Tobacco Use Types [...] Date Recorded Patient Health Questionnaire-2 Score 0 12/11/2021 Hunger Vital Sign Answer Date Recorded Within [...] Sign Reading Time Taken Comments Blood Pressure - - Pulse - - Temperature - - Respiratory Rate - - Oxygen Saturation - - Inhaled Oxygen Concentration - - Weight 77.1 kg (170 lb) 12/11/2021 1:40 PM EST Height 157.5 cm (5' 2 ) 12/11/2021 1:40 PM EST Body Mass Index 31.09 12/11/2021 1:40 PM EST documented in this encounter Miscellaneous Notes * Clinician Note - Tony Hernandez LPN - 12/11/2021 2:00 PM EST The patient received dietary education because they have an above normal BMI. * Progress Notes - Estephania Garcia MD - 12/11/2021 2:00 PM EST Telehealth Visit Subjective Patient ID: Tammy Wood is a 76 y.o. female. HPI 76 yo female patient presents via telehealth due to chronic drainage and congestion. Patient statesthat she has allergies and has not been able to take flonase recently, as it makes her feel sick sometimes. Last week, she felt like her symptoms have been worsening and she decided to come in for a COVID swab. Patient endorses a cough, dry/itchy eyes, postnasal drip, congestion, headaches, sore throat and sinus pressure. Denies any fever, chills, SOB, CP, N/V/D. Fully vaccinated against COVID. No known exposures to COVID. Review of Systems All other systems reviewed and are negative. Objective Physical Exam Constitutional: General: She is not in acute distress. Appearance: Normal appearance. She is not ill-appearing. HENT: Head: Normocephalic and atraumatic. Right Ear: External ear normal. Left Ear: External ear normal. Eyes: Extraocular Movements: Extraocular movements intact. Pulmonary: Effort: Pulmonary effort is normal. Neurological: General: No focal deficit present. Mental Status: She is alert and oriented to person, place, and time. Mental status is at baseline. Psychiatric: Mood and Affect: Mood normal. Behavior: Behavior normal. Thought Content: Thought content normal. Judgment: Judgment normal. Assessment/Plan Diagnoses and all orders for this visit: Cough - POCT SARS-CoV-2 COVID-19 Influenza A,B - POCT Strep A PCR - montelukast (Singulair) 10 MG tablet; Take 1 tablet (10 mg total) by mouth every night. COVID, flu, strep negative. Continue with supportive measures. Start singular. Follow up in one month or sooner PRN. Patient agreeable with plan. Telehealth Statement Patient Verification Patient identity has been confirmed using name and date of ? Yes Authorizations and Agreements/Telemedicine Consent sent and consent confirmed? Yes Patient Location: [facility] Facility Patient confirms they are physically located in [place]? Yes If the patient is not physically located in [place], the provider has confirmed with Legal thatthe provider is authorized to provide services in patient's stated location? Yes Provider Location: HealthCare Facility Audio and video or audio only? Audio and video Total visit time: 20 minutes Cosigned by Mandy Kee DO at 12/11/2021 4:50 PM EST Associated attestation - Mandy Kee DO - 12/11/2021 4:50 PM EST I reviewed with the resident the medical history and the resident's findings on physical examination. I discussed with the resident the patient's diagnosis and concur with the treatment plan as documented in the resident note. documented in this encounter Plan of Treatment Not on file documented as of this encounter Procedures Procedure Name Priority Date/Time Associated Diagnosis Comments POCT STREP A PCR Routine 12/11/2021 3:03 PM EST Cough POCT SARS COV2 COVID 19/INFLUENZA A,B Routine 12/11/2021 2:30 PM EST Cough documented in this encounter Results * POCT Strep A PCR (12/11/2021 3:03 PM EST) POCT Strep A PCR Not Detected Not Detected Kit Lot Number [id number] Kit Expiration Date 08/11/2022 Swab Structure of anterior portion of neck / Unknown 12/11/2021 3:03 PM EST Estephania Garcia MD POINT OF CARE TEST ENTER/EDIT ORDERABLES Final Result * POCT SARS-CoV-2 COVID-19 Influenza A,B (12/11/2021 2:30 PM EST) POCT Influenza A PCR Not Detected Not Detected POCT Influenza B PCR Not Detected Not Detected POCT COVID 19 PCR Not Detected Not Detected POCT COVID/Flu A,B Kit Lot [id number] POCT COVID/FLU A,B Kit Expiration 04/10/2022 Swab 12/11/2021 2:30 PM EST Estephania Garcia MD POINT OF CARE TEST ENTER/EDIT ORDERABLES Final Result documented in this encounter Visit Diagnoses Diagnosis Cough- Primary documented in this encounter Additional Health Concerns Infection Onset Date Last Indicated Resolved Time COVID-19 Rule-Out 12/11/2021 12/11/2021 12/11/2021 2:31 PM EST Assessment Noted Time PHQ-9 Depression Total Score: 3 12/12/19 1:41 PM EST A fall risk assessment has been complete d for the patient 12/11/2021 1:43 PM EST documented as of this encounter Care Teams Ceramic Artist Relationship Specialty Start Date End Date Neha Zhou APRN [address] [place] [id number] PCP - General 02/22/21 documented as of this encounter
--- OUTSIDE RECORDS SUMMARY | 2024-09-27 11:13 | XMS_ITS | Encounter Summary ---
Author Organization [facility] Address [address] [id number] Care Team Providers Care Space Sciences Director Name Role Phone Neha Zhou AMMON Primary Care Provider Reason for Visit * Reason Onset Date Comments Covid 19 test results 12/11/2021 Encounter Details Date Type Department Care Team (Late st Contact Info) Description 12/11/2021 Telephone [facility] [address] [place] [phone] Estephania Garcia MD [address] [place] [id number] Covid 19 test results Social History Tobacco Use Types Packs/Day Years [...] Telephone Encounter - Samantha Medeiros LPN - 12/11/2021 4:06 PM EST Notified pt * Telephone Encounter - Yelena Fenton - 12/11/2021 3:56 PM EST Calling back for the rest results for covid 19, call back number [phone] documented in this encounter Plan of Treatment Not on file documented as of this encounter Visit Diagnoses Not on filedocumented in this encounter Additional Health Concerns Infection Onset Date Last Indicated Resolved Time COVID-19 Rule-Out 12/11/2021 12/11/2021 12/11/2021 2:31 PM EST Assessment Noted Time PHQ-9 Depression Total Score: 3 12/12/19 22 1:41 PM EST A fall risk assessment has been complete d for the patient 12/11/2021 1:43 PM EST documented as of this encounter Care Teams Space Sciences Director Relationship Specialty Start Date End Date Neha Zhou APRN [address] [place] [address] PCP - General 02/22/21 documented as of this encounter
--- OUTSIDE RECORDS SUMMARY | 2024-09-27 11:13 | XMS_ITS | Encounter Summary ---
Author Organization Healthcare Address [address] [place] [address] Care Team Providers Care Activity Manager Name Role Phone Unavailable Primary Care Provider Unavailabl e Encounter Details Date Type Department Care Team (Late st Contact Info) Description 06/24/2017 [facility] Vitals Encounter [facility] OUTPATIENT CONVERSIONS [address] [place] [address] ProviderJaelyn MD [address] [place] [address] Social History Tobacco Use Types Packs/Day Years Used Date Smoking Tobacco: Never Assessed Comments Unknown Sex and Gender Information Value Date Recorded Sex Assigned at Female 06/03/2021 11:08 AM EDT Legal Sex Female 7:34 PM EDT Gender Identity Female 06/03/2021 11:08 AM EDT Sexual Orientation Straight 06/03/2021 11 :08 AM EDT documented as of this encounter Last Filed Vital Signs Vital Sign Reading Time Taken Comments Blood Pressure - - Pulse - - Temperature - - Respiratory Rate - - Oxygen Saturation - - Inhaled Oxygen Concentration - - Weight 82.1 kg (181 lb) 06/24/2017 11:00 AM EDT Height 158.8 cm (5' 2.5 ) 06/24/2017 11:00 AM ED T Body Mass Index 32.58 06/24/2017 11:00 AM EDT documented in this encounter Plan of Treatment Not on file documented as of this encounter Visit Diagnoses Not on filedocumented in this encounter
--- OUTSIDE RECORDS SUMMARY | 2024-09-27 11:13 | XMS_ITS | Encounter Summary ---
Author Organization Healthcare Address [address] [id number] Care Team Providers Care Video Game Developer Name Role Phone Neha Zhou AMMON Primary Care Provider Encounter Details Date Type Department Care Team (Latest Contact Info) Description 02/27/2022 Travel Social History Tobacco Use Types Packs/Day [...] Last Indicated Resolved Time COVID 19 (Confirmed) Comment:[facility] has attempted to contact pt in regards to positive Covid testing. No VM option. Time(s) Called: 1237 and 1503 EPI PUI/Report Sent: no Certified Letter Sent: yes [facility] Pot Reliner: Aiyana 02/18/2022 02/18/2022 03/11/2022 5:23 AM E DT Assessment Noted Time PHQ-9 Depression Total Score: 3 02/28/20 22 3:07 PM EDT A fall risk assessment has been complete d for the patient 02/27/2022 3:08 PM EDT documented as of this encounter Care Teams Video Game Developer Relationship Specialty Start Date End Date Neha Zhou, AMMON [address] [place] [address] PCP - General 02/22/21 documented as of this encounter
--- OUTSIDE RECORDS SUMMARY | 2024-09-27 11:13 | XMS_ITS | Encounter Summary ---
Author Organization Healthcare Address [address] [id number] Care Team Providers Care Forming Fixer Name Role Phone Neha Zhou AMMON Primary Care Provider [phone] Encounter Details Date Type Department Care Team (Late st Contact Info) Description 03/03/2022 Orders Only [facility] [address] [place] [phone] Shayna Pittman, DO [address] [place] [address] Essential (primary) hypertension (Primary Dx); COVID-19 Social History Tobacco Use Types Packs/Day Years [...] encounter Miscellaneous Notes * Progress Notes - Shayna Pittman DO - 03/03/2022 12:10 PM EDT Discharge from hospital: -Xyzol -Lisinopril 40mg for HTN -Mucinex 1200mg BID -Albuterol inhaler -Flonase Cosigned by Mandy Kee DO at 03/07/2022 8:51 AM EDT Associated attestation - Mandy Kee DO - 03/07/2022 8:51 AM EDT I saw and evaluated the patient with the resident/fellow. I discussed the case with the resident/fellow and agree with the findings and plan as documented. documented in this encounter Plan of Treatment Not on file documented as of this encounter Visit Diagnoses Diagnosis Essential (primary) hypertension- Primary Unspecified essential hypertension COVID-19 documented in this encounter Additional Health Concerns Infection Onset Date Last Indicated Resolved Time COVID 19 (Confirmed) Comment:[facility] has attempted to contact pt in regards to positive Covid testing. No VM option. Time(s) Called: 1237 and 1503 EPI PUI/Report Sent: no Certified Letter Sent: yes [facility] Impregnator Operator: Aiyana 02/18/2022 02/18/2022 03/11/2022 5:23 AM E DT Assessment Noted Time PHQ-9 Depression Total Score: 3 02/28/20 22 3:07 PM EDT A fall risk assessment has been complete d for the patient 02/27/2022 3:08 PM EDT documented as of this encounter Care Teams Forming Fixer Relationship Specialty Start Date End Date Neha Zhou APRN [address] [place] [address] PCP - General 02/22/21 documented as of this encounter
--- OUTSIDE RECORDS SUMMARY | 2024-09-27 11:13 | XMS_ITS | Encounter Summary ---
Author Organization Healthcare Address [address] [place] [address] Care Team Providers Care Desktop Technician Name Role Phone Unavailable Primary Care Provider Unavailabl e Encounter Details Date Type Department Care Team (Late st Contact Info) Description 02/17/2017 Legacy [facility] Vitals Encounter [facility] OUTPATIENT CONVERSIONS [address] [place] [address] ProviderJaelyn MD [address] [place] [address] Social History Tobacco Use Types Packs/Day [...] - Inhaled Oxygen Concentration - - Weight 83.2 kg (183 lb 6.1 oz) 02/17/2017 4:53 P M EDT Height 158.8 cm (5' 2.5 ) 02/17/2017 4:53 PM EDT Body Mass Index 33.01 02/17/2017 4:53 PM EDT documented in this encounter Plan of Treatment Not on file documented as of this encounter Visit Diagnoses Not on filedocumented in this encounter
--- OUTSIDE RECORDS SUMMARY | 2024-09-27 11:13 | XMS_ITS | Encounter Summary ---
Author Organization Healthcare Address [address] [id number] Care Team Providers Care Tool Carrier Name Role Phone Neha Zhou AMMON Primary Care Provider Encounter Details Date Type Department Care Team (Latest Contact Info) Description 06/27/2021 Travel Social History Tobacco Use Types Packs/Day [...] have Coronavirus / COVID-19? Unable to assess 06/27/2021 3:57 PM EDT documented as of this encounter Plan of Treatment Not on file documented as of this encounter Visit Diagnoses Not on filedocumented in this encounter Additional Health Concerns Assessment Noted Time PHQ-9 Depression Total Score: 2 06/12/20 1:15 PM EDT A fall risk assessment has been complete d for the patient 06/12/2021 1:18 PM EDT documented as of this encounter Care Teams Tool Carrier Relationship Specialty Start Date End Date Neha Zhou APRN [address] [place] [phone] PCP - General 02/22/21 documented as of this encounter
--- OUTSIDE RECORDS SUMMARY | 2024-09-27 11:13 | XMS_ITS | Encounter Summary ---
Author Organization Healthcare Address [address] [place] [address] Care Team Providers Care Online Affiliate Marketing Manager Name Role Phone Neha Zhou AMMON Primary Care Provider Reason for Visit * Reason Comments Hospital Follow Up COVID , leg weakness Encounter Details Date Type Department Care Team (Late st Contact Info) Description 03/12/2022 2:20 PM EDT Office Visit [facility] [address] [place] [phone] Shayan Pittman, DO [address] [place] [address] Constipation, unspecified constipation type (Primary Dx); Essential (primary) hypertension; Bilateral impacted cerumen Social History Tobacco Use Types Packs/Day Years [...] Date Recorded Patient Health Questionnaire-2 Score 0 03/12/2022 Hunger Vital Sign Answer Date Recorded Within [...] suspected to have Coronavirus/COVID-19? No / Unsure 03/12/2022 1:54 PM EDT documented as of this encounter Last Filed Vital Signs Vital Sign Reading Time Taken Comments Blood Pressure 133/79 03/12/2022 2:18 PM EDT Pulse 72 03/12/2022 2:18 PM EDT Temperature 36.7 ??C (98 ??F) 03/12/2022 2:06 PM EDT Respiratory Rate 18 03/12/2022 2:06 PM EDT Oxygen Saturation 98% 03/12/2022 2:06 PM EDT Inhaled Oxygen Concentration - - Weight 78.4 kg (172 lb 12.8 oz) 03/12/2022 2:06 PM EDT Height 157.5 cm (5' 2 ) 03/12/2022 2:06 PM EDT Body Mass Index 31.61 03/12/2022 2:06 PM EDT documented in this encounter Miscellaneous Notes * Clinician Note - Tamara Beck - 03/12/2022 2:20 PM EDT Body mass index is 31.61 kg/m??. The patient received dietary education because they have an above normal BMI. and The patient received exercise education because they have an above normal BMI. * Progress Notes - Shayna Pittman DO - 03/12/2022 2:20 PM EDT Subjective Patient ID: Tammy Wood is a 76 y.o. female. Chief Complaint Patient presents with ??? Hospital Follow Up COVID , leg weakness Patient is a pleasant 76-year-old female who presents for hospital follow-up: Hospital follow-up: Patient was hospitalized at [facility] from 03/02 to 03/03 with COVID-19. Duringhospitalization patient did not require oxygen supplementation. Patient received 2 doses of remdesivir. Patient was discharged home with several [id number] medicines for supportive care. Patient states since hospitalization that symptoms have mostly resolved. She states she has some residual leg weakness. She states this began around time diagnosis with COVID, and states this has been lingering issue. Patient denies any coolness to the extremity, or cramping pain. She states they simply feel weak. She states since discharge she has also had issue with seasonal allergies. Patient states t hat she has had sinus pressure, bilateral ear fullness, and postnasal drip. Patient states that sheis compliant with home Xyzal, however states she is not using home Flonase. Encouraged patient to use home Flonase. Hypertension: During hospitalization patient's blood pressure was elevated, patient was restarted on lisinopril 40 daily. Patient's blood pressure at follow-up is 133/79. Patient states she has not been checking blood pressure home. She denies any chest pain, headache, or blurry vision. Constipation: Patient states she has intermittent issue with constipation,, states she takes MiraLax intermittently for this issue. Patient requesting refill MiraLax. Patient states the most recent bowel movement was yesterday, states she is still passing gas. Patient denies any abdominal pain, nausea, vomiting, or diarrhea. The following portions of the chart were reviewed this encounter and updated as appropriate: Tobacco Allergies Meds Problems Med Hx Surg Hx Fam Hx Review of Systems Constitutional: Negative for activity change, fatigue and fever. HENT: Positive for congestion, ear pain and postnasal drip. Negative for sore throat and trouble swallowing. Respiratory: Negative for cough, shortness of breath and wheezing. Cardiovascular: Negative for chest pain, palpitations and leg swelling. Gastrointestinal: Positive for constipation. Negative for abdominal pain, diarrhea, nausea and vomiting. Genitourinary: Negative for dysuria, flank pain, frequency and hematuria. Musculoskeletal: Positive for arthralgias and myalgias. Negative for back pain. Neurological: Positive for weakness. Negative for dizziness, light-headedness, numbness and headaches. Objective Physical Exam Constitutional: General: She is not in acute distress. Appearance: Normal appearance. HENT: Head: Normocephalic and atraumatic. Right Ear: Tympanic membrane normal. There is impacted cerumen. Left Ear: Tympanic membrane normal. There is impacted cerumen. Nose: Rhinorrhea present. Mouth/Throat: Pharynx: Oropharynx is clear. No oropharyngeal exudate or posterior oropharyngeal erythema. Eyes: General: Right eye: No discharge. Left eye: No discharge. Conjunctiva/sclera: Conjunctivae normal. Cardiovascular: Rate and Rhythm: Normal rate and regular rhythm. Heart sounds: No murmur heard. No friction rub. No gallop. Pulmonary: Effort: Pulmonary effort is normal. No respiratory distress. Breath sounds: No wheezing, rhonchi or rales. Abdominal: General: Bowel sounds are normal. Palpations: Abdomen is soft. Tenderness: There is no abdominal tenderness. There is no guarding. Musculoskeletal: Right lower leg: No edema. Left lower leg: No edema. Neurological: Mental Status: She is alert and oriented to person, place, and time. Sensory: No sensory deficit. Motor: No weakness. Assessment/Plan Diagnoses and all orders for this visit: Constipation, unspecified constipation type Essential (primary) hypertension - lisinopril 40 MG tablet; Take 1 tablet (40 mg total) by mouth 1 (one) time each day. Bilateral impacted cerumen - carbamide peroxide (Debrox) 6.5 % otic solution; Administer 5 drops into each ear 2 (two) times aday for 7 days. -Encouraged patient to use home Flonase. Cosigned by Stevie Headley DO at 03/17/2022 8:25 AM EDT Associated attestation - Stevie Headley DO - 03/17/2022 8:25 AM EDT I reviewed with the resident the medical history and the resident's findings on physical examination. I discussed with the resident the patient's diagnosis and concur with the treatment plan as documented in the resident note. documented in this encounter Plan of Treatment Not on file documented as of this encounter Visit Diagnoses Diagnosis Constipation, unspecified constipation type- Primary Essential (primary) hypertension Unspecified essential hypertension Bilateral impacted cerumen Impacted cerumen documented in this encounter Additional Health Concerns Assessment Noted Time PHQ-9 Depression Total Score: 3 02/28/20 22 3:07 PM EDT A fall risk assessment has been complete d for the patient 03/12/2022 2:16 PM EDT documented as of this encounter Care Teams Online Affiliate Marketing Manager Relationship Specialty Start Date End Date Neha Zhou APRN [address] [place] [phone] PCP - General 02/22/21 documented as of this encounter
--- OUTSIDE RECORDS SUMMARY | 2024-09-27 11:13 | XMS_ITS | Encounter Summary ---
Author Organization [facility] Address [address] [place] [address] Care Team Providers Care Informatics Coordinator Name Role Phone Neha Zhou CONFERENCE AND EVENT ORGANISER Primary Care Provider Reason for Visit * Reason Comments Cough Nasal Congestion Encounter Details Date Type Department Care Team (Late st Contact Info) Description 02/18/2022 1:20 PM EDT Office Visit [facility] [address] [place] [address] Neha Zhou APRN [address] [place] [address] Cough (Primary Dx); Exposure to COVID-19 virus; Bilateral otitis media, unspecified otitis media type; Primary hypertension Social History Tobacco Use Types [...] Date Recorded Patient Health Questionnaire-2 Score 0 02/18/2022 Hunger Vital Sign Answer Date Recorded Within [...] was confirmed or suspected to have Coronavirus/COVID-19? Yes 02/18/2022 1:46 PM EDT documented as of this encounter Last Filed Vital Signs Vital Sign Reading Time Taken Comments Blood Pressure 156/92 02/18/2022 1:58 PM EDT Pulse 100 02/18/2022 1:57 PM EDT Temperature 37 ??C (98.6 ??F) 02/18/2022 1:57 PM EDT Respiratory Rate 18 02/18/2022 1:57 PM EDT Oxygen Saturation 95% 02/18/2022 1:57 PM EDT Inhaled Oxygen Concentration - - Weight 77.1 kg (170 lb) 02/18/2022 1:57 PM EDT Height 157.5 cm (5' 2 ) 02/18/2022 1:57 PM EDT Body Mass Index 31.09 02/18/2022 1:57 PM EDT documented in this encounter Miscellaneous Notes * Patient Instructions - Neha Zhou APRN - 02/22/2022 11:29 PM EDT reviewed diet exercise activity and nutrition; exercise one half hour day 5 days week; bmi less than 25 Push po fluids Also stay in and isolate til after 7-10 days * Clinician Note - Licha Goode LPN - 02/18/2022 1:20 PM EDT The patient received dietary education because they have an above normal BMI. * Progress Notes - Neha Zhou APRN - 02/18/2022 1:20 PM EDT Subjective Patient ID: Tammy Wood is a 76 y.o. female. Here for check up --co bad cough and headache Says started several weeks ago but worse past 2 days Some chills Low grade fever Says grandson was checked and pos for covid over weekend No vom No diarrhea No rash Has eczema htn Allergic rhinitis fatigue Review of Systems Constitutional: Positive for fatigue. HENT: Positive for postnasal drip and sore throat. Respiratory: Positive for cough. Musculoskeletal: Positive for arthralgias, back pain, gait problem, joint swelling and myalgias. Skin: Positive for rash. Psychiatric/Behavioral: The patient is nervous/anxious. All other systems reviewed and are negative. Objective Visit Vitals BP (!) 156/92 Pulse 100 Temp 37 ??C (98.6 ??F) (Skin) Ht 1.575 m (5' 2 ) Wt 77.1 kg (170 lb) SpO2 95% BMI 31.09 kg/m?? Physical Exam Vitals and nursing note reviewed. Constitutional: General: She is in acute distress. Appearance: Normal appearance. Comments: Congestion Low grade fever cough HENT: Head: Normocephalic and atraumatic. Ears: Comments: tms red inflamed and injected cyndie Nose: Congestion present. Mouth/Throat: Mouth: Mucous [...] Abdomen is soft. Musculoskeletal: General: Tenderness present. Cervical back: Normal range of motion. Comments: Arthritic joint changes hands cyndie cyndie hip pain and cyndie knee pain-crepitus Pos knee bulge Arthritis spine Skin: General: Skin is warm. Capillary Refill: Capillary refill takes less than 2 seconds. Neurological: General: No focal deficit present. Mental Status: She is alert. Psychiatric: Mood and Affect: Mood normal. Behavior: Behavior normal. Thought Content: Thought content normal. Judgment: Judgment normal. Assessment/Plan Diagnoses and all orders for this visit: Cough - POCT SARS-CoV-2 COVID-19 Influenza A,B - zinc sulfate (Zincate) 220 (50 Zn) MG capsule; Take 1 capsule (220 mg total) by mouth 1 (one) time each day. - SARS CoV-2/COVID-19 by PCR; Future Exposure to COVID-19 virus - POCT SARS-CoV-2 COVID-19 Influenza A,B - zinc sulfate (Zincate) 220 (50 Zn) MG capsule; Take 1 capsule (220 mg total) by mouth 1 (one) time each day. - SARS CoV-2/COVID-19 by PCR; Future Bilateral otitis media, unspecified otitis media type Primary hypertension Other orders - ascorbic acid (Vitamin C) 500 MG tablet; Take 1 tablet (500 mg total) by mouth 2 (two) times a day for 7 days. - cephalexin (Keflex) 500 MG capsule; Take 1 capsule (500 mg total) by mouth 2 (two) times a day for 7 days. - benzonatate (Tessalon) 100 MG capsule; Take 1 capsule (100 mg total) by mouth 3 (three) times a day if needed for cough for up to 21 days. Do not crush or chew. documented in this encounter Plan of Treatment Not on file documented as of this encounter Procedures Procedure Name Priority Date/Time Associated Diagnosis Comments POCT SARS COV2 COVID 19/INFLUENZA A,B Routine 02/18/2022 2:25 PM EDT Cough Exposure to COVID-19 virus documented in this encounter Results * (ABNORMAL) POCT SARS-CoV-2 COVID-19 Influenza A,B (02/18/2022 2:25 PM EDT) POCT Influenza A PCR Not Detected Not Detected POCT Influenza B PCR Not Detected Not Detected POCT COVID 19 PCR Detected(A) Not Detected POCT COVID/Flu A,B Kit Lot [id number] POCT COVID/FLU A,B Kit Expiration 03/11/2022 Swab 02/18/2022 2:25 PM EDT Neha Zhou APRN POINT OF CARE TEST ENTER/CROY T ORDERABLES Final Result documented in this encounter Visit Diagnoses Diagnosis Cough- Primary Exposure to COVID-19 virus Bilateral otitis media, unspecified otitis media type Primary hypertension Unspecified essential hypertension documented in this encounter Additional Health Concerns Infection Onset Date Last Indicated Resolved Time COVID-19 Rule-Out 02/18/2022 02/18/2022 02/18/2022 2:26 PM EDT COVID 19 (Confirmed) Comment:[facility] has attempted to contact pt in regards to positive Covid testing. No VM option. Time(s) Called: 1237 and 1503 EPI PUI/Report Sent: no Certified Letter Sent: yes IPAC Skimmer: Aiyana 02/18/2022 02/18/2022 03/11/2022 5:23 AM E DT Assessment Noted Time PHQ-9 Depression Total Score: 3 02/19/20 22 1:55 PM EDT A fall risk assessment has been complete d for the patient 02/18/2022 1:57 PM EDT documented as of this encounter Care Teams Informatics Coordinator Relationship Specialty Start Date End Date Neha Zhou, CONFERENCE AND EVENT ORGANISER [address] [place] [phone] PCP - General 02/22/21 documented as of this encounter
--- OUTSIDE RECORDS SUMMARY | 2024-09-27 11:13 | XMS_ITS | Encounter Summary ---
Author Organization [facility] Address [address] [id number] Care Team Providers Care Project Manager Interior Design Name Role Phone Neha Zhou AMMON Primary Care Provider Encounter Details Date Type Department Care Team (Latest Contact Info) Description 03/12/2022 Travel Social History Tobacco Use Types Packs/Day [...] documented as of this encounter Care Teams Project Manager Interior Design Relationship Specialty Start Date End Date Neha Zhou APRN [address] [place] [phone] PCP - General 02/22/21 documented as of this encounter
--- OUTSIDE RECORDS SUMMARY | 2024-09-27 11:13 | XMS_ITS | Encounter Summary ---
Author Organization [facility] Address [address] [id number] Care Team Providers Care Swatch Cutter Name Role Phone Neha Zhou AMMON Primary Care Provider Encounter Details Date Type Department Care Team (Latest Contact Info) Description 02/18/2022 Travel Social History Tobacco Use Types Packs/Day [...] 2:26 PM EDT COVID 19 (Confirmed) Comment:[facility] has attempted to contact pt in regards to positive Covid testing. No VM option. Time(s) Called: 1237 and 1503 EPI PUI/Report Sent: no Certified Letter Sent: yes [facility] Belt Knife Feeder: Aiyana 02/18/2022 02/18/2022 03/11/2022 5:23 AM E DT Assessment Noted Time PHQ-9 Depression Total Score: 3 02/19/20 22 1:55 PM EDT A fall risk assessment has been complete d for the patient 02/18/2022 1:57 PM EDT documented as of this encounter Care Teams Swatch Cutter Relationship Specialty Start Date End Date Neha Zhou APRN [address] [place] [phone] PCP - General 02/22/21 documented as of this encounter
--- OUTSIDE RECORDS SUMMARY | 2024-09-27 11:13 | XMS_ITS | Encounter Summary ---
Author Organization [facility] Address [address] [place] [address] Care Team Providers Care Power Originator Name Role Phone Neha Zhou AMMON Primary Care Provider Reason for Visit * Reason Comments COVID-19 Screening Encounter Details Date Type Department Care Team (Late st Contact Info) Description 06/12/2021 9:15 AM EDT Clinical Support [facility] [address] [place] [phone] Social History Tobacco Use Types Packs/Day Years [...] documented as of this encounter Care Teams Power Originator Relationship Specialty Start Date End Date Neha Zhou APRN [address] [place] [address] PCP - General 02/22/21 documented as of this encounter
--- OUTSIDE RECORDS SUMMARY | 2024-09-27 11:13 | XMS_ITS | Encounter Summary ---
Author Organization [facility] Address [address] [place] [address] Care Team Providers Care Stab Setter And Driller Name Role Phone Neha Zhou AMMON Primary Care Provider Reason for Visit * Reason Comments COVID-19 Screening Pt states she has be en sick since the , She now has continued symptoms after taking antibiotics. SHe now has diarhea, and dry sinuses and dry mouth/ throat and cough Encounter Details Date Type Department Care Team (Late st Contact Info) Description 06/12/2021 3:20 PM EDT Office Visit [facility] [address] [place] [phone] Gaviota OrionDO zoe [address] [place] [address] Diarrhea, unspecified type (Primary Dx) Social History Tobacco Use Types [...] - - Temperature - - Respiratory Rate 20 06/12/2021 1:14 PM EDT Oxygen Saturation - - Inhaled Oxygen Concentration - - Weight 81.6 kg (180 lb) 06/12/2021 1:14 PM EDT Height 157.5 cm (5' 2 ) 06/12/2021 1:14 PM EDT Body Mass Index 32.92 06/12/2021 1:14 PM EDT documented in this encounter Miscellaneous Notes * Progress Notes - David, Makensey N, PROJ MGR - 06/12/2021 3:20 PM EDT The patient received dietary education because they have an above normal BMI. * Progress Notes - Orion Meek DO - 06/12/2021 3:20 PM EDT Subjective Tammy Wood is a 76 y.o. female who presents via telehealth for diarrhea. HPI Ms. Wood is an established patient with complaints of diarrhea since yesterday. Pt reports onset early this morning with loose stools. Pt states she recently completed a 7 day course of keflex for a sinus infection, completing the course yesterday. Pt does not report any new foods or activity prior to onset. There is no associated abdominal pain, fever, N/V, or blood in the stool. Pt does notreport any aggravating or relieving factors. Pt has received full COVID vaccination. Past Medical History: Diagnosis Date ??? Allergic ??? Cellulitis of unspecified part of limb Cellulitis of hand ??? Chest pain, unspecified Intermittent chest pain ??? Disorder of the skin and subcutaneous tissue, unspecified Skin lesion ??? Diverticulitis of intestine, part unspecified, without perforation or abscess without bleeding Diverticulitis ??? Diverticulitis of intestine, part unspecified, without perforation or abscess without bleeding Dvtrcli of intest, part unsp, w/o perf or abscess w/o bleed ??? Encounter for screening for malignant neoplasm of colon Encounter for Hemoccult screening ??? Hypertension ??? Left lower quadrant pain Acute left lower quadrant pain ??? Localized swelling, mass and lump, unspecified upper limb Mass of shoulder region ??? Other injury of unspecified body region, initial encounter Hematoma and contusion ??? Other symptoms and signs involving the musculoskeletal system Complaints of leg weakness ??? Pain in right hip Right hip pain ??? Pain in unspecified hand Pain of hand ??? Personal history of other diseases of the female genital tract History of vaginitis ??? Personal history of other diseases of the respiratory system History of bronchitis ??? Personal history of other diseases of the respiratory system History of pharyngitis ??? Personal history of other diseases of the respiratory system History of sinusitis ??? Personal history of other diseases of the respiratory system History of sore throat ??? Personal history of other specified conditions History of abdominal pain ??? Personal history of other specified conditions History of diarrhea ??? Personal history of other specified conditions History of dysuria ??? Personal history of other specified conditions History of nasal congestion ??? Personal history of pneumonia (recurrent) History of community acquired pneumonia ??? Personal history of urinary (tract) infections History of urinary tract infection Family History Problem Relation Name Age of Onset ??? Other cancer Mother Past Surgical History: Procedure Laterality Date ??? HAND SURGERY N/A Hand Surgery from [facility] ??? OTHER SURGICAL HISTORY N/A Thyroid Surgery Type Of Procedure from [facility] ??? TUBAL LIGATION N/A Tubal Ligation from [facility] Social History Socioeconomic History ??? Marital status: Spouse name: Not on file ??? Number of children: 2 ??? Years of education: 12th ??? Highest education level: 12th grade Occupational History ??? Occupation: retired Tobacco Use ??? Smoking status: Never Smoker ??? Smokeless tobacco: Never Used Vaping Use ??? Vaping Use: Never used Substance and Sexual Activity ??? Alcohol use: No ??? Drug use: Never Comment: Drug use: No drug use ??? Sexual activity: Not on file Other Topics Concern ??? Not on file Social History Narrative ??? Not on file Social Determinants of Health Financial Resource Strain: Low Risk ??? Difficulty of Paying Living Expenses: Not hard at all Food Insecurity: No Food Insecurity ??? Worried About Running Out of Food in the Last Year: Never true ??? Ran Out of Food in the Last Year: Never true Transportation Needs: ??? Lack of Transportation (Medical): ??? Lack of Transportation (Non-Medical): Physical Activity: ??? Days of Exercise per Week: ??? Minutes of Exercise per Session: Stress: ??? Feeling of Stress : Social Connections: ??? Frequency of Communication with Friends and Family: ??? Frequency of Social Gatherings with Friends and Family: ??? Attends Religion Services: ??? Active Member of Clubs or Organizations: ??? Attends Club or Organization Meetings: ??? Marital Status: Intimate Partner Violence: Not At Risk ??? Fear of Current or Ex-Partner: No ??? Emotionally Abused: No ??? Physically Abused: No ??? Sexually Abused: No Current Outpatient Medications on File Prior to Visit Medication Sig Dispense Refill ??? calcium carbonate-vitamin D 600-400 MG-UNIT tablet Take 1 tablet twice daily ??? cycloSPORINE (Restasis) 0.05 % ophthalmic emulsion INSTILL 1 DROP IN BOTH EYES EVERY 12 HOURS DAILY. ??? docusate sodium (Colace) 100 MG capsule TAKE 1 CAPSULE TWICE DAILY NEEDED. ??? fluticasone (Flonase) 50 MCG/ACT nasal spray USE 2 SPRAYS NASALLY ONCE A DAY ??? loratadine (Claritin) 10 MG tablet TAKE 1 TABLET DAILY NEEDED. ??? polyethylene glycol (Miralax) 17 GM/SCOOP powder MIX 1 PACKET IN 8 OUNCES OF LIQUID AND DRINK TWICE DAILY. ??? [] cephalexin (Keflex) 500 MG capsule Take 1 capsule (500 mg total) by mouth 2 (two) times a day for 7 days. 14 capsule 0 No current facility-administered medications on file prior to visit. Allergies Allergen Reactions ??? Erythromycin Itching, Rash, Other and Unknown ??? Ciprofloxacin Other and Unknown ??? Clindamycin Unknown ??? Doxycycline Unknown ??? Metronidazole Unknown ??? Nitrofurantoin Unknown ??? Penicillins Rash, Other and Unknown ??? Percocet [Oxycodone-Acetaminophen] Unknown ??? Sulfacetamide Unknown ??? Sulfisoxazole Unknown ??? Tetracycline Other and Unknown Health Maintenance Due Topic Date Due ??? Glaucoma Screening 67+ Yr Never done ??? Bone Density Scan Never done ??? MMR Vaccines (1 of 1 - Standard series) Never done ??? Varicella Vaccines (1 of 2 - 2-dose childhood series) Never done ??? DTaP,Tdap,and Td Vaccines (1 - Tdap) Never done ??? Zoster Vaccines (1 of 2) Never done ??? Influenza Vaccine (1) 06/12/2021 All medications have been reviewed today. The following portions of the patient's chart were reviewed in this encounter and updated as appropriate: past medical history, surgical history, family history, tobacco history, allergies and medications Review of Systems Constitutional: Negative for chills and fever. HENT: Negative for ear pain, sinus pain, sore throat and trouble swallowing. Eyes: Negative for pain and visual disturbance. Respiratory: Negative for cough and shortness of breath. Cardiovascular: Negative for chest pain and leg swelling. Gastrointestinal: Positive for diarrhea. Negative for abdominal pain, constipation, nausea and vomiting. Genitourinary: Negative for decreased urine volume, difficulty urinating and dysuria. Musculoskeletal: Negative for arthralgias, back pain and myalgias. Skin: Negative for rash and wound. Neurological: Negative for dizziness, weakness, numbness and headaches. Psychiatric/Behavioral: Negative for agitation and confusion. The patient is not nervous/anxious. Objective Vitals: 06/12/21 1314 Resp: 20 Physical Exam Constitutional: General: She is not in acute distress. Appearance: Normal appearance. She is not ill-appearing or toxic-appearing. Comments: Physical exam performed only by visual inspection via telehealth. HENT: Head: Normocephalic and atraumatic. Right Ear: External ear normal. Left Ear: External ear normal. Nose: Nose normal. Mouth/Throat: Pharynx: Oropharynx is clear. Eyes: General: Right eye: No discharge. Left eye: No discharge. Conjunctiva/sclera: Conjunctivae normal. Pulmonary: Effort: Pulmonary effort is normal. No respiratory distress. Musculoskeletal: Cervical back: Normal range of motion. Neurological: Mental Status: She is alert and oriented to person, place, and time. Mental status is at baseline. Psychiatric: Mood and Affect: Mood normal. Behavior: Behavior normal. Thought Content: Thought content normal. Judgment: Judgment normal. Assessment/Plan Problem List Items Addressed This Visit Digestive Diarrhea - Primary Relevant Orders SARS CoV-2/COVID-19 by PCR Will recheck COVID. Suspect diarrhea likely related to recent antibiotic use. Advised patient to stay hydrated. Patient demonstrated understanding of plan. All questions and concerns addressed. Orion Meek DO Cosigned by Sun Spain MD at 06/22/2021 6:11 AM EDT Associated attestation - Sun Spain MD - 06/22/2021 6:11 AM EDT I have discussed the case with the resident and agree with the resident???s findings and plan as documented in the resident???s note. documented in this encounter Plan of Treatment Not on file documented as of this encounter Procedures Procedure Name Priority Date/Time Associated Diagnosis Comments SARS COV-2/COVID-19 BY PCR Routine 06/12/2021 3:11 PM EDT Diarrhea, unspecified type documented in this encounter Results * SARS CoV-2/COVID-19 by PCR (06/12/2021 3:11 PM EDT) SARS CoV-2/COVID-1 9 RNA PCR Result Not Detected Not Detected 06/13/2021 3:39 AM EDT [facility] Swab Nasopharyngeal structure / Unknown Non-blood Collection / Unknown 06/12/2021 3:11 PM EDT 06/12/2021 3:11 PM EDT Narrative [facility] - 06/13/2021 3:39 AM EDT This assay is for in vitro diagnostic use under FDA emergency use authorization only. Negative results do not preclude infection with the SARS CoV-2 virus and should not be the sole basis of a patient treatment/management or public health decision. Follow up testing should be performed according to the current CDC recommendations. This test was performed using the TaqPath COVID-19 assay, an [id number] method. The limit of detection (LoD) for this assay is 250 copies/mL. Use of the TaqPath COVID-19 assay in an asymptomatic screening population is intended to be used as part of an infection control plan that may include additional preventative measures, such as a predefined serial testing plan or directed testing of high-risk individuals. Negative results should be considered presumptive and do not preclude current or future infection obtained through community transmission or other exposures. Negative results must be considered in the context of an individual's recent exposures, history, presence of clinical signs and symptoms consistent with COVID-19. Sun Spain MD LAB MICROBIOLOGY - GENERAL ORD ERABLES Final Result [facility] [address] [place] [address] documented in this encounter Visit Diagnoses Diagnosis Diarrhea, unspecified type- Primary documented in this encounter Additional Health Concerns Infection Onset Date Last Indicated Resolved Time COVID-19 Rule-Out 06/12/2021 06/12/2021 06/13/2021 3:39 AM EDT Assessment Noted Time PHQ-9 Depression Total Score: 2 06/12/20 1:15 PM EDT A fall risk assessment has been complete d for the patient 06/12/2021 1:18 PM EDT documented as of this encounter Care Teams Stab Setter And Driller Relationship Specialty Start Date End Date Neha Zhou APRN [address] [place] [phone] PCP - General 02/22/21 documented as of this encounter
--- OUTSIDE RECORDS SUMMARY | 2024-09-27 11:13 | XMS_ITS | Encounter Summary ---
Author Organization Healthcare Address [address] [phone] Care Team Providers Care Casting Assistant Name Role Phone Neha Zhou AMMON Primary Care Provider Encounter Details Date Type Department Care Team (Latest Contact Info) Description 06/03/2021 Travel Social History Tobacco Use Types Packs/Day [...] documented as of this encounter Care Teams Casting Assistant Relationship Specialty Start Date End Date Neha Zhou APRN [address] [facility] [place] [address] PCP - General 02/22/21 documented as of this encounter
--- OUTSIDE RECORDS SUMMARY | 2024-09-27 11:13 | XMS_ITS | Encounter Summary ---
Author Organization Healthcare Address [address] [phone] Care Team Providers Care Boilermaker Pipe Fitter Name Role Phone Neha Zhou AMMON Primary Care Provider Encounter Details Date Type Department Care Team (Latest Contact Info) Description 09/09/2021 Travel Social History Tobacco Use Types Packs/Day [...] documented as of this encounter Care Teams Boilermaker Pipe Fitter Relationship Specialty Start Date End Date Neha Zhou APRN [address] [place] [phone] PCP - General 02/22/21 documented as of this encounter
--- OUTSIDE RECORDS SUMMARY | 2024-09-27 11:13 | XMS_ITS | Encounter Summary ---
Author Organization [facility] Address [address] [place] [address] Care Team Providers Care Health Information Technician Name Role Phone Neha Zhou ADVERTISEMENT COMPOSITOR Primary Care Provider Reason for Visit * Reason Comments Follow-up From positive covid patient states not getting any better. Patient complains of SOB and wheezing and nausea Encounter Details Date Type Department Care Team (Late st Contact Info) Description 02/27/2022 3:20 PM EDT Office Visit [facility] [address] [place] [address] Neha Zhou, ADVERTISEMENT COMPOSITOR [address] [place] [phone] Acute bronchitis, unspecified organism (Primary Dx); COVID-19; Bilateral otitis media, unspecified otitis media type; [...] Sign Reading Time Taken Comments Blood Pressure 140/88 02/27/2022 3:09 PM EDT Pulse 110 02/27/2022 3:05 PM EDT Temperature 37.4 ??C (99.4 ??F) 02/27/2022 3:05 PM ED T Respiratory Rate 20 02/27/2022 3:05 PM EDT Oxygen Saturation 95% 02/27/2022 3:05 PM EDT Inhaled Oxygen Concentration - - Weight 77.6 kg (171 lb) 02/27/2022 3:05 PM EDT Height 157.5 cm (5' 2 ) 02/27/2022 3:05 PM EDT Body Mass Index 31.28 02/27/2022 3:05 PM EDT documented in this encounter Miscellaneous Notes * Patient Instructions - Neha Zhou APRN - 02/28/2022 7:25 PM EDT reviewed diet exercise activity and nutrition; exercise one half hour day 5 days week; bmi less than 25 Push po fluids * Clinician Note - Licha Goode LPN - 02/27/2022 3:20 PM EDT The patient received dietary education because they have an above normal BMI. * Progress Notes - Neha Zhou APRN - 02/27/2022 3:20 PM EDT Subjective Patient ID: Tammy Wood is a 76 y.o. female. Pt comes in co cough and congestion Pt was pos for covid 02/18/22-she took one week of keflex Taking zinc and vit c Just finished keflex Says still coughing and congested Low grade fever today Co poor energy level Grandson was checked and pos 2 weeks ago Co nausea No vom No diarrhea No rash Review of Systems Constitutional: Positive for fatigue and fever. HENT: Positive for congestion. Respiratory: Positive for cough. Musculoskeletal: Positive for myalgias. Neurological: Positive for headaches. Psychiatric/Behavioral: Positive for sleep disturbance. All other systems reviewed and are negative. Objective Visit Vitals BP 140/88 Pulse 110 Temp 37.4 ??C (99.4 ??F) (Skin) Ht 1.575 m (5' 2 ) Wt 77.6 kg (171 lb) SpO2 95% BMI 31.28 kg/m?? Physical Exam Vitals and nursing note reviewed. Constitutional: Appearance: Normal appearance. She is normal weight. Comments: Congested and hoarse Coughing but no acute distress HENT: Head: Normocephalic. Right Ear: Ear canal and external ear normal. Left Ear: Ear canal and external ear normal. Ears: Comments: Bulging w serous fluid cyndie Nose: Congestion present. Mouth/Throat: Mouth: Mucous membranes are moist. Pharynx: Oropharynx is clear. Eyes: Extraocular Movements: Extraocular movements intact. Conjunctiva/sclera: Conjunctivae normal. Pupils: Pupils are equal, round, and reactive to light. Cardiovascular: Rate and Rhythm: Normal rate and regular rhythm. Pulses: Normal pulses. Heart sounds: Normal heart sounds. Pulmonary: Effort: Pulmonary effort is normal. Breath sounds: Rhonchi and rales present. Comments: Scattered rales and rhonchi throughout Abdominal: General: Abdomen is flat. Bowel sounds are normal. Musculoskeletal: General: Tenderness present. Cervical back: Normal range of motion. Comments: Arthritis changes of cyndie hands, hips and knees Skin: General: Skin is warm and dry. Capillary Refill: Capillary refill takes less than 2 seconds. Neurological: General: No focal deficit present. Mental Status: She is alert and oriented to person, place, and time. Psychiatric: Behavior: Behavior normal. Thought Content: Thought content normal. Judgment: Judgment normal. Comments: Anxious nervous Assessment/Plan Diagnoses and all orders for this visit: Acute bronchitis, unspecified organism - dexamethasone (Decadron) injection 8 mg - promethazine (Phenergan) injection 12.5 mg COVID-19 - dexamethasone (Decadron) injection 8 mg - promethazine (Phenergan) injection 12.5 mg Bilateral otitis media, unspecified otitis media type Primary hypertension Other orders - ondansetron (Zofran) 4 MG tablet; Take 1 tablet (4 mg total) by mouth every 8 (eight) hours if needed for nausea or vomiting for up to 7 days. documented in this encounter Plan of Treatment Not on file documented as of this encounter Visit Diagnoses Diagnosis Acute bronchitis, unspecified organism- Primary COVID-19 Bilateral otitis media, unspecified otitis media type Primary hypertension Unspecified essential hypertension documented in this encounter Administered Medications Inactive Administered Medications - up to 3 most recent administrations Medication Order MAR Action Action Date Dose Rate Site dexamethasone (Decadron) injection 8 mg 8 mg, Intramuscular, Once, 1 dose, On Marcia 02/27/22 at 1630, RoutineIndications:Acut e bronchitis, unspecified organism,COVID-19 Given 02/27/2022 4:17 PM EDT 8 mg Left Ventrogluteal promethazine (Phenergan) injection 12.5 mg 12.5 mg, Intramuscular, Once, 1 dose, On Marcia 02/27/22 at 1630, RoutineIndications:Acut e bronchitis, unspecified organism,COVID-19 Given 02/27/2022 4:20 PM EDT 12.5 mg Right Ventrogluteal documented in this encounter Additional Health Concerns Infection Onset Date Last Indicated Resolved Time COVID 19 (Confirmed) Comment:[facility] has attempted to contact pt in regards to positive Covid testing. No VM option. Time(s) Called: 1237 and 1503 EPI PUI/Report Sent: no Certified Letter Sent: yes [facility] Neck Fitter: Aiyana 02/18/2022 02/18/2022 03/11/2022 5:23 AM E DT Assessment Noted Time PHQ-9 Depression Total Score: 3 02/28/20 3:07 PM EDT A fall risk assessment has been complete d for the patient 02/27/2022 3:08 PM EDT documented as of this encounter Care Teams Health Information Technician Relationship Specialty Start Date End Date Neha Zhou APRN [address] [facility], [place] [phone] PCP - General 02/22/21 documented as of this encounter
--- OUTSIDE RECORDS SUMMARY | 2024-09-27 11:13 | XMS_ITS | Encounter Summary ---
Author Organization Healthcare Address [address] [phone] Care Team Providers Care Entertainer Or Variety Artist Name Role Phone Neha Zhou AMMON Primary Care Provider Encounter Details Date Type Department Care Team (Latest Contact Info) Description 08/07/2021 Travel Social History Tobacco Use Types Packs/Day [...] documented as of this encounter Care Teams Entertainer Or Variety Artist Relationship Specialty Start Date End Date Neha Zhou APRN [address] [place] [address], [place] [address] PCP - General 02/22/21 documented as of this encounter
--- OUTSIDE RECORDS SUMMARY | 2024-09-27 11:13 | XMS_ITS | Encounter Summary ---
Author Organization Healthcare Address [address] [place] [address] Care Team Providers Care Torque Tester Name Role Phone Unavailable Primary Care Provider Unavailabl e Encounter Details Date Type Department Care Team (Late st Contact Info) Description 02/23/2017 [facility] Vitals Encounter [facility] OUTPATIENT CONVERSIONS [address] [place] [address] ProviderJaelyn MD [address] [place] [id number] Social History Tobacco Use Types Packs/Day [...] - Inhaled Oxygen Concentration - - Weight 81.7 kg (180 lb 0.1 oz) 02/23/2017 9:06 A M EDT Height 158.8 cm (5' 2.5 ) 02/23/2017 9:06 AM EDT Body Mass Index 32.4 02/23/2017 9:06 AM EDT documented in this encounter Plan of Treatment Not on file documented as of this encounter Visit Diagnoses Not on filedocumented in this encounter
--- OUTSIDE RECORDS SUMMARY | 2024-09-27 11:13 | XMS_ITS | Encounter Summary ---
Author Organization Healthcare Address [address] [place] [address] Care Team Providers Care Patient Accounts Coordinator Name Role Phone Unavailable Primary Care Provider Unavailabl e Encounter Details Date Type Department Care Team (Late st Contact Info) Description 02/12/2017 [facility] Vitals Encounter [facility] OUTPATIENT CONVERSIONS [address] [place] [address] ProviderJaelyn MD [address] [place] [address] Social History Tobacco Use Types Packs/Day [...] - Inhaled Oxygen Concentration - - Weight 84.1 kg (185 lb 6.2 oz) 02/12/2017 11:05 AM EDT Height 158.8 cm (5' 2.5 ) 02/12/2017 11:05 AM ED T Body Mass Index 33.37 02/12/2017 11:05 AM EDT documented in this encounter Plan of Treatment Not on file documented as of this encounter Visit Diagnoses Not on filedocumented in this encounter
--- OUTSIDE RECORDS SUMMARY | 2024-09-27 11:13 | XMS_ITS | Encounter Summary ---
Author Organization Healthcare Address [address] [place] [address] Care Team Providers Care Licensing Registration Examiner Name Role Phone Neha Zhou AMMON Primary Care Provider Reason for Visit * Reason Comments COVID-19 Screening Encounter Details Date Type Department Care Team (Late st Contact Info) Description 06/03/2021 8:45 AM EDT Clinical Support [facility] [address] [place] [phone] Social History Tobacco Use Types Packs/Day Years [...] documented as of this encounter Care Teams Licensing Registration Examiner Relationship Specialty Start Date End Date Neha Zhou APRN [address] [facility] [place] [address] PCP - General 02/22/21 documented as of this encounter
--- OUTSIDE RECORDS SUMMARY | 2024-09-27 11:13 | XMS_ITS | Encounter Summary ---
Author Organization Healthcare Address [address] [place] [address] Care Team Providers Care Atm Technician Name Role Phone Neha Zhou TRADING FLOOR OPERATOR Primary Care Provider [phone] Reason for Visit * Reason Comments Nausea Dizziness Sinusitis Encounter Details Date Type Department Care Team (Latest Contact Info) Description 03/26/2022 9:40 AM EDT Office Visit [facility] [address] [place] [address] Neha Zhou APRN [address] [place] [address] Other fatigue (Primary Dx); Essential (primary) hypertension; Hyperlipidemia, unspecified hyperlipidemia type; Primary hypertension; Acute frontal sinusitis, recurrence not specified; Arthritis; Seasonal allergic rhinitis, unspecified trigger Social History [...] Sign Reading Time Taken Comments Blood Pressure 137/79 03/26/2022 9:33 AM EDT Pulse 94 03/26/2022 9:33 AM EDT Temperature 36.4 ??C (97.5 ??F) 03/26/2022 9:33 AM ED T Respiratory Rate 18 03/26/2022 9:33 AM EDT Oxygen Saturation 97% 03/26/2022 9:33 AM EDT Inhaled Oxygen Concentration - - Weight 77 kg (169 lb 12.8 oz) 03/26/2022 9:33 AM EDT Height 157.5 cm (5' 2 ) 03/26/2022 9:33 AM EDT Body Mass Index 31.06 03/26/2022 9:33 AM EDT documented in this encounter Miscellaneous Notes * Patient Instructions - Neha Zhou APRN - 03/31/2022 9:37 AM EDT reviewed diet exercise activity and nutrition; exercise one half hour day 5 days week; bmi less than 25 Pt to half lisinopril for next week to see if sx subside Fu next week * Clinician Note - Tamara Beck - 03/26/2022 9:40 AM EDT Body mass index is 31.06 kg/m??. The patient received dietary education because they have an above normal BMI. and The patient received exercise education because they have an above normal BMI. * Progress Notes - Neha Zhou APRN - 03/26/2022 9:40 AM EDT Subjective Patient ID: Tammy Wood is a 77 y.o. female. Here for check up --co feels bad Congestion, sinus pain and drainage and coughing Had covid in February 2022--2 weeks after positive she went to er because she was weak and coughing and was admitted to [facility]--03/02-03/03/22--had 2 doses of remdesivir Pt did have htn in hosp and was put back on lisinopril 40 mg daily Says has felt dizzy since started back on lisinopril Co leg cramps Fair appetite She has allergic rhinitis Rheumatoid arthritis sjogrens disease No fever No vom No diarrhea No rash Review of Systems Constitutional: Positive for fatigue. HENT: Positive for ear pain, postnasal drip, rhinorrhea, sinus pressure, sinus pain and sore throat. Respiratory: Positive for cough. All other systems reviewed and are negative. Objective Visit Vitals BP 137/79 (BP Location: Left arm, Patient Position: Sitting) Pulse 94 Temp 36.4 ??C (97.5 ??F) (Skin) Ht 1.575 m (5' 2 ) Wt 77 kg (169 lb 12.8 oz) SpO2 97% BMI 31.06 kg/m?? Physical Exam Vitals and nursing note reviewed. Constitutional: Appearance: Normal appearance. She is normal weight. HENT: Head: Normocephalic. Right Ear: Ear canal and external ear normal. Left Ear: Ear canal and external ear normal. Ears: Comments: tms red bulging cyndie Nose: Congestion and rhinorrhea present. Comments: Inc pain on frontal and max sinus areas Mouth/Throat: Mouth: Mucous membranes are moist. Pharynx: Posterior oropharyngeal erythema present. No oropharyngeal exudate. Eyes: Extraocular Movements: Extraocular movements intact. Conjunctiva/sclera: Conjunctivae normal. Pupils: Pupils are equal, round, and reactive to light. Cardiovascular: Rate and Rhythm: Normal rate and regular rhythm. Pulses: Normal pulses. Heart sounds: Normal heart sounds. Pulmonary: Effort: Pulmonary effort is normal. Breath sounds: Rhonchi and rales present. Abdominal: General: Abdomen is flat. Bowel sounds are normal. Palpations: Abdomen is soft. Musculoskeletal: General: Tenderness and deformity present. Cervical back: Normal range of motion. Comments: Arthritis changes cyndie knees, hands Skin: General: Skin is warm and [...] Essential (primary) hypertension - Comprehensive metabolic panel Hyperlipidemia, unspecified hyperlipidemia type - Lipid Profile, Plasma Primary hypertension Acute frontal sinusitis, recurrence not specified Arthritis Seasonal allergic rhinitis, unspecified trigger Other orders - cephalexin (Keflex) 500 MG capsule; Take 1 capsule (500 mg total) by mouth 2 (two) times a day for 7 days. documented in this encounter Plan of Treatment Not on file documented as of this encounter Procedures Procedure Name Priority Date/Time Associated Diagnosis Comments CBC WITH AUTO DIFFERENTIAL Routine 03/26/2022 10:39 AM EDT Other fatigue TSH Routine 03/26/2022 10:39 AM EDT Other fatigue LIPID PROFILE, PLASMA Routine 03/26/2022 10:39 AM EDT Hyperlipidemia, unspecified hyperlipidemia type COMPREHENSIVE METABOLIC PANEL, PLASMA Routine 03/26/2022 10:39 AM EDT Essential (primary) hypertension documented in this encounter Results * (ABNORMAL) Lipid Profile, Plasma (03/26/2022 10:39 AM EDT) Cholesterol, Plasma 211(H) <200 mg/dL 03/26/2022 7:59 PM EDT [facility] Comment: Cholesterol Reference Range (age >17 years): Desirable? <200 mg/dL Borderline? 200 to 239 mg/dL Undesirable? >239 mg/dL HDL 54 >=50 mg/dL 03/26/2022 7:59 PM EDT [facility] Comment: HDL Cholesterol Reference Ranges (age >17 years): Female, acceptable? > or = 50 mg/dL Male, acceptable? > or = 40 mg/dL Triglycerides, Plasma 97 <150 mg/dL 03/26/2022 7:59 PM EDT [facility] Comment: Triglyceride Reference Range (age >17 years): Desirable:?? <150 mg/dL Borderline high:?? 150 to 199 mg/dL High:?? 200 to 499 mg/dL Very high:?? >499 mg/dL Increased risk of pancreatitis:?? >1000 mg/dL Cholesterol/HDL Ratio 4 03/26/2022 7:59 PM EDT [facility] LDL, Calculated 137.6(H) <100 mg/dL 03/26/2022 7:59 PM EDT [facility] Comment: LDL Cholesterol Reference Range (age >17 years): Optimal: ??<100 mg/dL Near or above optimal: 100 - 129 mg/dL Borderline high: 130 - 159 mg/dL High: 160 - 189 mg/dL Very high: >189 mg/dL LDL Cholesterol Reference Range (age <18 years): Desirable: ? <110 mg/dL Borderline: ?110 - 129 mg/dL Undesirable: ?? >130 mg/dL Blood Venous blood specimen / Unknown Venipuncture / Unknown 03/26/2022 10:39 AM EDT 03/26/2022 10:39 AM EDT Neha Mckay Winnie TRADING FLOOR OPERATOR LAB BLOOD ORDERABLES Final R esult Performing Organization Address [facility] Co de Phone Number [facility]ARE [facility] [address] [place] [address] * Thyroid Stimulating Hormone, Plasma (03/26/2022 10:39 AM EDT) Thyroid Stimulating Hormone, Plasma 1.31 0.40 - 4.20 uIU/mL 03/26/2022 7:59 PM EDT [facility] Blood Venous blood specimen / Unknown Venipuncture / Unknown 03/26/2022 10:39 AM EDT 03/26/2022 10:39 AM EDT Neha M Winnie TRADING FLOOR OPERATOR LAB BLOOD ORDERABLES Final R esult Performing Organization Address [facility] Co de Phone Number [facility] [address] [place] [address] * (ABNORMAL) Comprehensive metabolic panel (03/26/2022 10:39 AM EDT) [facility] Glucose, Plasma 113(H) 74 - 99 mg/dL 03/26/2022 7:59 PM EDT [facility] BUN, Plasma 9 8 - 23 mg/dL 03/26/2022 7:59 PM EDT [facility] Creatinine, Plasma 0.80 0.60 - 1.10 mg/dL 03/26/2022 7:59 PM EDT [facility] BUN/Creatinine Ratio 11 03/26/2022 7:59 PM EDT [facility] Sodium, Plasma 134(L) 136 - 145 mmol/L 03/26/2022 7:59 PM EDT [facility] Potassium, Plasma 4.8 3.7 - 4.8 mmol/L 03/26/2022 7:59 PM EDT [facility] Comment:Reference range for Serum potassium is 0.2 to 0.5 mmol/L higher than Plasma range. Chloride, Plasma 97 97 - 107 mmol/L 03/26/2022 7:59 PM EDT [facility] CO2, Plasma 24 22 - 29 mmol/L 03/26/2022 7:59 PM EDT [facility] Anion Gap 13 6 - 16 mmol/L 03/26/2022 7:59 PM EDT [facility] Total Calcium, Plasma 9.5 8.9 - 10.2 mg/dL 03/26/2022 7:59 PM EDT [facility] Total Protein 7.1 6.3 - 7.9 g/dL 03/26/2022 7:59 PM EDT [facility] Albumin, Plasma 4.2 3.5 - 5.2 g/dL 03/26/2022 7:59 PM EDT [facility] AST, Plasma 17 9 - 36 U/L 03/26/2022 7:59 PM EDT [facility] ALT, Plasma 11 8 - 33 U/L 03/26/2022 7:59 PM EDT [facility] Alkaline Phosphatase, Plasma 84 46 - 142 U/L 03/26/2022 7:59 PM EDT [facility] Total Bilirubin, Plasma 0.7 0.2 - 1.1 mg/dL 03/26/2022 7:59 PM EDT [facility] eGFR >60 >60 mL/min/1.7 3m*2 03/26/2022 7:59 PM EDT [facility] Comment:eGFR = estimated GFR ; eGFR units = mL/min/1.73 sq meters Chronic Kidney Disease is considered if eGFR <60 mL/min/1.73 sq meters Kidney failure is considered if eGFR is <15 mL/min/1.73 sq meters. eGFR assumes steady state plasma creatinine concentration; not applicable if renal function is rapidly changing or patient is on dialysis. eGFR, if AFR/AM >60 >60 mL/min/1.7 3m*2 03/26/2022 7:59 PM EDT [facility] Comment:eGFR = estimated GFR ; eGFR units = mL/min/1.73 sq meters Chronic Kidney Disease is considered if eGFR <60 mL/min/1.73 sq meters Kidney failure is considered if eGFR is <15 mL/min/1.73 sq meters. eGFR assumes steady state plasma creatinine concentration; not applicable if renal function is rapidly changing or patient is on dialysis. Blood Venous blood specimen / Unknown Venipuncture / Unknown 03/26/2022 10:39 AM EDT 03/26/2022 10:39 AM EDT us Neha Zhou TRADING FLOOR OPERATOR LAB BLOOD ORDERABLES Final R esult [facility] [address] [place] [address] * (ABNORMAL) CBC and differential (03/26/2022 10:39 AM EDT) WBC Count 5.39 3.70 - 10.30 10*3/uL LAB HEMATOLOGY METHOD 03/26/2022 7:42 PM EDT [facility] RBC Count 4.58 3.90 - 5.20 10*6/uL LAB HEMATOLOGY METHOD 03/26/2022 7:42 PM EDT [facility] HGB 13.6 11.2 - 15.7 g/dL LAB HEMATOLOGY METHOD 03/26/2022 7:42 PM EDT [facility] HCT 42.8 34.0 - 45.0 % LAB HEMATOLOGY METHOD 03/26/2022 7:42 PM EDT [facility] Platelet Count 247 155 - 369 10*3/uL LAB HEMATOLOGY METHOD 03/26/2022 7:42 PM EDT [facility] MCV 93 79 - 98 fL LAB HEMATOLOGY METHOD 03/26/2022 7:42 PM EDT [facility] MCH 29.7 26.0 - 32.0 pg LAB HEMATOLOGY METHOD 03/26/2022 7:42 PM EDT [facility] MCHC 31.8 30.7 - 35.5 g/dL LAB HEMATOLOGY METHOD 03/26/2022 7:42 PM EDT [facility] RDW 14.3 11.5 - 14.5 % LAB HEMATOLOGY METHOD 03/26/2022 7:42 PM EDT [facility] MPV 10.0 8.8 - 12.5 fL LAB HEMATOLOGY METHOD 03/26/2022 7:42 PM EDT [facility] nRBC 0.0 <=0.0 per 100 WBCs LAB HEMATOLOGY METHOD 03/26/2022 7:42 PM EDT [facility] Differential Type Automated LAB HEMATOLOGY METHOD 03/26/2022 7:42 PM EDT [facility] Neutrophils % 68.0 % LAB HEMATOLOGY METHOD 03/26/2022 7:42 PM EDT [facility] Lymphocytes % 20.0 % LAB HEMATOLOGY METHOD 03/26/2022 7:42 PM EDT [facility] Monocytes % 10.0 % LAB HEMATOLOGY METHOD 03/26/2022 7:42 PM EDT [facility] Eosinophils % 1.0 % LAB HEMATOLOGY METHOD 03/26/2022 7:42 PM EDT [facility] Basophils % 1.0 % LAB HEMATOLOGY METHOD 03/26/2022 7:42 PM EDT [facility] Immature Granulocytes % 0.0 % LAB HEMATOLOGY METHOD 03/26/2022 7:42 PM EDT [facility] Neutrophils Absolute 3.70 1.60 - 6.10 10*3/uL LAB HEMATOLOGY METHOD 03/26/2022 7:42 PM EDT [facility] Lymphocytes Absolute 1.08(L) 1.20 - 3.90 10*3/uL LAB HEMATOLOGY METHOD 03/26/2022 7:42 PM EDT [facility] Monocytes Absolute 0.54 0.30 - 0.90 10*3/uL LAB HEMATOLOGY METHOD 03/26/2022 7:42 PM EDT [facility] Eosinophils Absolute 0.03 0.00 - 0.50 10*3/uL LAB HEMATOLOGY METHOD 03/26/2022 7:42 PM EDT [facility] Basophils Absolute 0.03 0.00 - 0.10 10*3/uL LAB HEMATOLOGY METHOD 03/26/2022 7:42 PM EDT [facility] Immature Granulocytes Absolute 0.01 0.00 - 0.06 10*3/uL LAB HEMATOLOGY METHOD 03/26/2022 7:42 PM EDT [facility] Blood Venous blood specimen / Unknown Venipuncture / Unknown 03/26/2022 10:39 AM EDT 03/26/2022 10:39 AM EDT Narrative [facility] - 03/26/2022 7:42 PM EDT Therapeutic decision making should be based on absolute values, rather than percentages. us Neha Zhou APRN LAB BLOOD ORDERABLES Final R esult [facility] [address] [place] [address] documented in this encounter Visit Diagnoses Diagnosis Other fatigue- Primary Essential (primary) hypertension Unspecified essential hypertension Hyperlipidemia, unspecified hyperlipidemia type Primary hypertension Unspecified essential hypertension Acute frontal sinusitis, recurrence not specified Arthritis Unspecified arthropathy, site unspecified Seasonal allergic rhinitis, unspecified trigger documented in this encounter Additional Health Concerns Assessment Noted Time PHQ-9 Depression Total Score: 3 02/28/20 22 3:07 PM EDT A fall risk assessment has been complete d for the patient 03/26/2022 9:37 AM EDT documented as of this encounter Care Teams Atm Technician Relationship Specialty Start Date End Date Neha Zhou APRN [address] [place] [address] PCP - General 02/22/21 documented as of this encounter
--- OUTSIDE RECORDS SUMMARY | 2024-09-27 11:14 | XMS_ITS | Encounter Summary ---
Author Organization Healthcare Address [address] [place] [address] Care Team Providers Care Senior Research Associate Name Role Phone Unavailable Primary Care Provider Unavailabl e Encounter Details Date Type Department Care Team (Late st Contact Info) Description 05/13/2016 [facility] AEHR Vitals Encounter [facility] OUTPATIENT CONVERSIONS [address] [place] [address] ProviderJaelyn MD [address] [place] [phone] Social History Tobacco Use Types Packs/Day [...] - Inhaled Oxygen Concentration - - Weight 86.2 kg (189 lb 15.9 oz) 016 11:12 AM EDT Height 158.8 cm (5' 2.5 ) 05/13/2016 11 :12 AM EDT Body Mass Index 34.2 05/13/2016 11:12 AM EDT documented in this encounter Plan of Treatment Not on file documented as of this encounter Visit Diagnoses Not on filedocumented in this encounter
--- OUTSIDE RECORDS SUMMARY | 2024-09-27 11:14 | XMS_ITS | Encounter Summary ---
Author Organization Healthcare Address [address] [place] [address] Care Team Providers Care Sample Maker Name Role Phone Unavailable Primary Care Provider Unavailabl e Encounter Details Date Type Department Care Team (Late st Contact Info) Description 04/18/2016 Legacy AEHR Vitals Encounter [facility] OUTPATIENT CONVERSIONS [address] [place] [address] ProviderJaelyn MD [address] [place] [phone] Social History Tobacco Use Types Packs/Day [...] - Inhaled Oxygen Concentration - - Weight 84.8 kg (186 lb 15.9 oz) 016 10:06 AM EDT Height 158.8 cm (5' 2.5 ) 04/18/2016 10 :06 AM EDT Body Mass Index 33.66 04/18/2016 10:06 AM EDT documented in this encounter Plan of Treatment Not on file documented as of this encounter Visit Diagnoses Not on filedocumented in this encounter
--- OUTSIDE RECORDS SUMMARY | 2024-09-27 11:14 | XMS_ITS | Encounter Summary ---
Author Organization Healthcare Address [address] [place] [address] Care Team Providers Care Data Science And Iot Manager Name Role Phone Unavailable Primary Care Provider Unavailabl e Encounter Details Date Type Department Care Team (Late st Contact Info) Description 08/16/2015 Legacy AEHR Vitals Encounter [facility] OUTPATIENT CONVERSIONS [address] [place] [address] ProviderJaelyn MD [address] [place] [phone] Social History Tobacco Use Types Packs/Day [...] - Inhaled Oxygen Concentration - - Weight 86.6 kg (191 lb 0.1 oz) 08/16/2015 4:43 P M EST Height 158.8 cm (5' 2.5 ) 08/16/2015 4:43 PM EST Body Mass Index 34.38 08/16/2015 4:43 PM EST documented in this encounter Plan of Treatment Not on file documented as of this encounter Visit Diagnoses Not on filedocumented in this encounter
--- OUTSIDE RECORDS SUMMARY | 2024-09-27 11:14 | XMS_ITS | Encounter Summary ---
Author Organization [facility] Address [address] [place] [address] Care Team Providers Care Plug Saw Operator Name Role Phone Unavailable Primary Care Provider Unavailabl e Encounter Details Date Type Department Care Team (Late st Contact Info) Description 05/05/2016 Legacy AEHR Vitals Encounter [facility] OUTPATIENT CONVERSIONS [address] [place] [address] ProviderJaelyn MD [address] [place] [phone] Social History Tobacco Use Types Packs/Day [...] - Inhaled Oxygen Concentration - - Weight 85.9 kg (189 lb 6 oz) 05/05/2016 9:59 AM EDT Height 158.8 cm (5' 2.5 ) 05/05/2016 9:59 AM EDT Body Mass Index 34.09 05/05/2016 9:59 AM EDT documented in this encounter Plan of Treatment Not on file documented as of this encounter Visit Diagnoses Not on filedocumented in this encounter
--- OUTSIDE RECORDS SUMMARY | 2024-09-27 11:14 | XMS_ITS | Encounter Summary ---
Author Organization Healthcare Address [address] [place] [address] Care Team Providers Care Ballast Cleaning Operator Name Role Phone Unavailable Primary Care Provider Unavailabl e Encounter Details Date Type Department Care Team (Late st Contact Info) Description 12/10/2015 Legacy AEHR Vitals Encounter [facility] OUTPATIENT CONVERSIONS [address] [place] [address] ProviderJaelyn MD [address] [place] [address] Social History Tobacco Use Types Packs/Day [...] - Inhaled Oxygen Concentration - - Weight 85.7 kg (189 lb) 12/10/2015 2:37 PM EST Height 158.8 cm (5' 2.5 ) 12/10/2015 2:37 PM EST Body Mass Index 34.02 12/10/2015 2:37 PM EST documented in this encounter Plan of Treatment Not on file documented as of this encounter Visit Diagnoses Not on filedocumented in this encounter
--- OUTSIDE RECORDS SUMMARY | 2024-09-27 11:14 | XMS_ITS | Encounter Summary ---
Author Organization Healthcare Address [address] [place] [address] Care Team Providers Care Energy Assistant Name Role Phone Unavailable Primary Care Provider Unavailabl e Encounter Details Date Type Department Care Team (Late st Contact Info) Description 08/05/2016 Legacy AEHR Vitals Encounter [facility] OUTPATIENT CONVERSIONS [address] [place] [address] ProviderJaelyn MD [address] [place] [phone] Social History Tobacco Use Types Packs/Day [...] Weight 85.9 kg (189 lb 6 oz) 08/05/2016 10:50 AM EDT Height 158.8 cm (5' 2.5 ) 08/05/2016 10:50 AM ED T Body Mass Index 34.09 08/05/2016 10:50 AM EDT documented in this encounter Plan of Treatment Not on file documented as of this encounter Visit Diagnoses Not on filedocumented in this encounter
--- OUTSIDE RECORDS SUMMARY | 2024-09-27 11:14 | XMS_ITS | Encounter Summary ---
Author Organization Healthcare Address [address] [place] [address] Care Team Providers Care Hand Thermal Cutter Name Role Phone Unavailable Primary Care Provider Unavailabl e Encounter Details Date Type Department Care Team (Late st Contact Info) Description 07/05/2015 Legacy AEHR Vitals Encounter [facility] OUTPATIENT CONVERSIONS [address] [place] [address] ProviderJaelyn MD [address] [place] [address] Social History Tobacco Use Types Packs/Day [...] - Inhaled Oxygen Concentration - - Weight 86.7 kg (191 lb 4 oz) 07/05/2015 9:58 AM EDT Height 158.8 cm (5' 2.5 ) 07/05/2015 9:58 AM EDT Body Mass Index 34.42 07/05/2015 9:58 AM EDT documented in this encounter Plan of Treatment Not on file documented as of this encounter Visit Diagnoses Not on filedocumented in this encounter
--- OUTSIDE RECORDS SUMMARY | 2024-09-27 11:14 | XMS_ITS | Encounter Summary ---
Author Organization [facility] Address [address] [place] [address] Care Team Providers Care Surgical Dressing Maker Name Role Phone Unavailable Primary Care Provider Unavailabl e Encounter Details Date Type Department Care Team (Late st Contact Info) Description 05/30/[address] Legacy AEHR [address] [facility] OUTPATIENT CONVERSIONS [address] [place] [address] ProviderJaelyn MD [address] [place] [address] Social History Tobacco Use Types Packs/Day [...] Weight 85.9 kg (189 lb 6 oz) 05/30/2016 9:47 AM EDT Height 158.8 cm (5' 2.5 ) 05/30/2016 9:47 AM EDT Body Mass Index 34.09 05/30/2016 9:47 AM EDT documented in this encounter Plan of Treatment Not on file documented as of this encounter Visit Diagnoses Not on filedocumented in this encounter
--- OUTSIDE RECORDS SUMMARY | 2024-09-27 11:14 | XMS_ITS | Encounter Summary ---
Author Organization Healthcare Address [address] [place] [address] Care Team Providers Care Sql Manager Name Role Phone Unavailable Primary Care Provider Unavailabl e Encounter Details Date Type Department Care Team (Late st Contact Info) Description 11/14/2016 Legacy AEHR Vitals Encounter [facility] OUTPATIENT CONVERSIONS [address] [place] [address] ProviderJaelyn MD [address] [place] [phone] Social History Tobacco Use Types Packs/Day [...] - Inhaled Oxygen Concentration - - Weight 88.1 kg (194 lb 2.2 oz) 11/14/2016 10:26 AM EST Height 158.8 cm (5' 2.5 ) 11/14/2016 10:26 AM ES T Body Mass Index 34.94 11/14/2016 10:26 AM EST documented in this encounter Plan of Treatment Not on file documented as of this encounter Visit Diagnoses Not on filedocumented in this encounter
--- OUTSIDE RECORDS SUMMARY | 2024-09-27 11:14 | XMS_ITS | Encounter Summary ---
Author Organization Healthcare Address [address] [place] [address] Care Team Providers Care Senior Data Quality Analyst Name Role Phone Unavailable Primary Care Provider Unavailabl e Encounter Details Date Type Department Care Team (Late st Contact Info) Description 12/26/2015 Legacy AEHR Vitals Encounter [facility] OUTPATIENT CONVERSIONS [address] [place] [address] ProviderJaelyn MD [address] [place] [phone] Social History Tobacco Use Types Packs/Day [...] - Inhaled Oxygen Concentration - - Weight 85.3 kg (188 lb 0.1 oz) 12/26/2015 1:38 P M EDT Height 158.8 cm (5' 2.5 ) 12/26/2015 1:38 PM EDT Body Mass Index 33.84 12/26/2015 1:38 PM EDT documented in this encounter Plan of Treatment Not on file documented as of this encounter Visit Diagnoses Not on filedocumented in this encounter
--- OUTSIDE RECORDS SUMMARY | 2024-09-27 11:14 | XMS_ITS | Encounter Summary ---
Author Organization [facility] Address [address] [place] [address] Care Team Providers Care Assistant Professor Of Archaeology Name Role Phone Unavailable Primary Care Provider Unavailabl e Encounter Details Date Type Department Care Team (Late st Contact Info) Description 01/01/2017 Legacy AEHR Vitals Encounter [facility] OUTPATIENT CONVERSIONS [address] [place] [address] ProviderJaelyn MD [address] [place] [address] Social History Tobacco Use Types Packs/Day [...] - Inhaled Oxygen Concentration - - Weight 87.1 kg (192 lb) 01/01/2017 4:11 PM EDT Height 158.8 cm (5' 2.5 ) 01/01/2017 4:07 PM EDT Body Mass Index 34.56 01/01/2017 4:07 PM EDT documented in this encounter Plan of Treatment Not on file documented as of this encounter Visit Diagnoses Not on filedocumented in this encounter
--- OUTSIDE RECORDS SUMMARY | 2024-09-27 11:14 | XMS_ITS | Encounter Summary ---
Author Organization [facility] Address [address] [place] [address] Care Team Providers Care Coremaker Machine Name Role Phone Unavailable Primary Care Provider Unavailabl e Encounter Details Date Type Department Care Team (Late st Contact Info) Description 09/01/2016 Legacy AEHR Vitals [facility] [facility] OUTPATIENT CONVERSIONS [address] [place] [address] ProviderJaelyn MD [address] [place] [address] Social History Tobacco Use Types Packs/Day [...] - Inhaled Oxygen Concentration - - Weight 86.4 kg (190 lb 8 oz) 09/01/2016 3:09 PM EST Height 158.8 cm (5' 2.5 ) 09/01/2016 3:09 PM EST Body Mass Index 34.29 09/01/2016 3:09 PM EST documented in this encounter Plan of Treatment Not on file documented as of this encounter Visit Diagnoses Not on filedocumented in this encounter
--- OUTSIDE RECORDS SUMMARY | 2024-09-27 11:14 | XMS_ITS | Encounter Summary ---
Author Organization Healthcare Address [address] [place] [address] Care Team Providers Care Fur Finisher Tailor Name Role Phone Unavailable Primary Care Provider Unavailabl e Encounter Details Date Type Department Care Team (Late st Contact Info) Description 06/18/2016 Legacy AEHR Vitals Encounter [facility] OUTPATIENT CONVERSIONS [address] [place] [address] ProviderJaelyn MD [address] [place] [address] Social History Tobacco Use Types Packs/Day [...] - - Weight 85.7 kg (189 lb) 06/18/2016 1:36 PM EDT Height 158.8 cm (5' 2.5 ) 06/18/2016 1:36 PM EDT Body Mass Index 34.02 06/18/2016 1:36 PM EDT documented in this encounter Plan of Treatment Not on file documented as of this encounter Visit Diagnoses Not on filedocumented in this encounter
--- OUTSIDE RECORDS SUMMARY | 2024-09-27 11:14 | XMS_ITS | Encounter Summary ---
Author Organization [facility] Address [address] [place] [address] Care Team Providers Care Business Office Technology Instructor Name Role Phone Unavailable Primary Care Provider Unavailabl e Encounter Details Date Type Department Care Team (Late st Contact Info) Description 08/22/2016 Legacy AEHR Vitals Encounter [facility] OUTPATIENT CONVERSIONS [address] [place] [address] ProviderJaelyn MD [address] [place] [phone] Social History Tobacco Use Types Packs/Day [...] - Inhaled Oxygen Concentration - - Weight 87.3 kg (192 lb 6 oz) 08/22/2016 2:48 PM EST Height 158.8 cm (5' 2.5 ) 08/22/2016 2:48 PM EST Body Mass Index 34.62 08/22/2016 2:48 PM EST documented in this encounter Plan of Treatment Not on file documented as of this encounter Visit Diagnoses Not on filedocumented in this encounter
--- OUTSIDE RECORDS SUMMARY | 2024-09-27 11:14 | XMS_ITS | Encounter Summary ---
Author Organization [facility] Address [address] [place] [address] Care Team Providers Care Beam Machine Operator Name Role Phone Unavailable Primary Care Provider Unavailabl e Encounter Details Date Type Department Care Team (Late st Contact Info) Description 07/24/2015 Legacy AEHR Vitals Encounter [facility] OUTPATIENT CONVERSIONS [address] [place] [address] ProviderJaelyn MD [address] [place] [address] Social History Tobacco Use Types Packs/Day [...] - Inhaled Oxygen Concentration - - Weight 88 kg (194 lb 0.1 oz) 07/24/2015 10:20 AM EDT Height 158.8 cm (5' 2.5 ) 07/24/2015 10:20 AM ED T Body Mass Index 34.92 07/24/2015 10:20 AM EDT documented in this encounter Plan of Treatment Not on file documented as of this encounter Visit Diagnoses Not on filedocumented in this encounter
== END 2024-09-22 19:14 | disposition home or self-care (01) ==
PROVIDERS: Emergency Provider Student in an Organized Health Care Education/Training Program
DX: U07.1 COVID-19 (principal); R06.02 Shortness of breath; R06.2 Wheezing; R05.9 Cough, unspecified; R09.89 Other specified symptoms and signs involving the circulatory and respiratory systems
CPT/HCPCS: 71046; 99283